=== PATIENT | female | born 1940 | race Caucasian/White ===

== ENCOUNTER 2017-05-09 13:30 | Outpatient (RCR) | payer MEDICARE ==
[2015-09-29 10:19] VITALS: Ht 160 cm; Wt 63.1 kg
[~2017-05-09] VITALS: Ht 160 cm; Wt 63.1 kg
[~2017-05-09 13:30] MED LIST: ALB18R INH; ALBU8.5H IH; AZIT-17 PO; BECL8.7A6 IH; CALC1TAB58 PO; CHOL10005 PO; CYA1000 PO; DEN60I SUBQ; DOXY-179 PO; FLUT1DIS28 IH; IBUP-56 PO; IPRA3AMP21 IH; LETPT GT; LEVA1.2513 NEB; MULT-885 PO; NICO1PAT45 TD; NICO1PAT88 TD; NO CURRENT MEDS; OXYGENHOME INH; PER PO; PRED-1 PO; PRED-416 PO; PRED-420 PO; PRED20TA PO; PRED20TA6 PO; PYRI200T10 PO; SIMV-49 PO; TIO18R INH; UMEC1DIS INH; ZOLE5INF IV
[2017-05-09 13:42] VITALS: BP 142/78
[2017-05-09 14:03] LABS: PLATELET COUNT, AUTOMATED 184 K/uL (150-450)
[2017-05-09 14:37] VITALS: BP 142/78
== END 2017-05-16 09:02 | disposition home or self-care (01) ==
LOC: SPU 13:30
PROVIDERS: ATTEND Internal Medicine Medical Oncology
DX: C50.919 Malignant neoplasm of unspecified site of unspecified female breast (principal); M81.0 Age-related osteoporosis without current pathological fracture
CPT/HCPCS: 36415; 85025; G0463; 82040; 82247; 82310; 82374; 82435; 82565; 82947; 84075; 84132; 84155; 84295; 84450; 84460; 84520; 99212

== ENCOUNTER 2017-09-11 12:19 | Emergency (ER) | payer MEDICARE ==
[2015-09-29 10:19] VITALS: Wt 61.2 kg
--- NOTE | 2017-09-11 12:31 | ER Report ---
History and Physical Time Seen By MD: 12:30 HPI/ROS CHIEF COMPLAINT: Shortness breath, increased oxygen demand HISTORY OF PRESENT ILLNESS: Patient is a 77-year-old female here with a history of COPD requiring more oxygen at baseline via supplemental oxygen than usual. At baseline she uses 3 L nasal cannula however noted that her oxygen levels dipped into the 80s prompting evaluation.. Patient was audibly wheezing at time of evaluation he reports only having used her nebulizer once within the last day. She is taking her inhalers as prescribed. Patient also reports increased sputum production which is clear. Patient denies fevers, chills, abdominal pain nausea vomiting. REVIEW OF SYSTEMS: Constitutional: No fever, no chills. Eyes: No discharge. ENT: No sore throat. Cardiovascular: No chest pain, no palpitations. Respiratory: + cough, + increased sputum production, + wheezing Gastrointestinal: No abdominal pain, no vomiting. Genitourinary: No hematuria. Musculoskeletal: No back pain. Skin: No rashes. Neurological: No headache. Allergies: Coded Allergies: No Known Drug Allergies (Unverified , 09/28/15) Home Meds Active Scripts Prednisone (PREDNISONE) 20 Mg Tablet, 40 MG PO QDAY for 5 Days, #10 TAB Prov:JASON HOLBROOK DO 09/11/17 Levofloxacin 750 Mg Tab (LEVAQUIN 750 MG TAB) 750 Mg Tablet, 750 MG PO DAILY for 4 Days, #4 TAB Prov:JASON HOLBROOK DO 09/11/17 Umeclidinium Brm/Vilanterol Tr (Anoro Ellipta 62.5-25 Mcg INH) 1 Each Disk.w.dev , 1 PUFF INH QDAY, #1 DISK 8 Refills Prov:AJAY OLIVAREZ MD 02/22/17 Albuterol Sulfate (VENTOLIN HFA) 18 Gm Inh, 2 PUFF INH Q4-6H Y for SHORTNESS OF BREATH, #1 INH 9 Refills Prov:AJAY OLIVAREZ MD 02/22/17 Simvastatin (SIMVASTATIN) 20 Mg Tablet, 10 MG PO HS, #90 TAB 3 Refills Prov:AJAY OLIVAREZ MD 02/22/17 Oxygen (OXYGEN) Inha, 3-4 L INH DIRECTED, #0 L Prov:AJAY OLIVAREZ MD 09/30/15 Reported Medications Ibuprofen (IBUPROFEN) 200 Mg Tablet, 2 TAB PO Q6H Y for PRN, TAB 09/28/15 Calcium Carb & Cit/Vitamin D3 (CALCIUM + VITAMIN D3 CAPLET) 1 Each Tablet.er, 1 EACH PO 09/05/12 Multivitamin (DAILY VITAMIN) 1 Each Tablet, 1 EACH PO 09/05/12 Discontinued Reported Medications Cyanocobalamin (Vitamin B-12) (VITAMIN B-12) Unknown Strength Tablet, 1000 MCG PO 09/02/15 Discontinued Scripts Prednisone (PREDNISONE) 20 Mg Tablet, 20 MG PO BID, #14 TAB Prov:AJAY OLIVAREZ MD 02/22/17 Azithromycin (Z-PACK) 250 Mg Tablet, 0 PO DIRECTED, #6 DOSE-PACK 5 days z pack Prov:AJAY OLIVAREZ MD 02/22/17 Fluticasone/Salmeterol (ADVAIR 250-50 DISKUS) 1 Each Disk.w.dev, 1 EACH IH BID, #1 DISK 9 Refills Prov:AJAY OLIVAREZ MD 02/22/17 Hx Smoking: Yes (1/2PPD) Smoking Status: Former Smoker Constitutional Vital Sign - Last 24 Hours 09/11/17 09/11/17 09/11/17 09/11/17 12:24 12:28 12:34 12:49 Temp 98.1 Pulse 130 110 97 Resp 30 8 22 B/P (MAP) 127/71 127/71 (89) Pulse Ox 80 93 94 O2 Delivery Nasal Cannula 09/11/17 09/11/17 09/11/17 09/11/17 12:50 12:50 12:50 12:55 Pulse 97 101 Resp 24 24 B/P (MAP) 117/79 (92) Pulse Ox 95 O2 Delivery Nasal Cannula O2 Flow Rate 4.0 09/11/17 09/11/17 09/11/17 09/11/17 12:55 13:04 13:19 13:20 Pulse 99 ??? B/P (MAP) ???/??? (1665) Pulse Ox 97 O2 Delivery Nasal Cannula O2 Flow Rate 4.0 09/11/17 09/11/17 09/11/17 09/11/17 13:25 13:34 13:40 13:49 Pulse 97 98 Resp 18 22 B/P (MAP) 110/58 (75) Pulse Ox 93 92 O2 Flow Rate 4.0 09/11/17 09/11/17 09/11/17 14:00 14:04 14:14 Temp 97.6 Pulse 95 Resp 10 B/P (MAP) 102/58 (73) Pulse Ox 94 Physical Exam General Appearance: The patient is alert, has no immediate need for airway protection and no signs of toxicity. Uncomfortable Eyes: Pupils equal and round no pallor or injection. ENT, Mouth: Mucous membranes are moist. Respiratory: + wheezing b/l, crackles Cardiovascular: Regular rate and rhythm. Gastrointestinal: Abdomen is soft and non tender, no masses, bowel sounds normal. Neurological: Skin: Warm and dry, no rashes. Musculoskeletal: Neck is supple non tender. Extremities are nontender, nonswollen and have full range of motion. DIFFERENTIAL DIAGNOSIS: After history and physical exam differential diagnosis was considered for shortness of breath including but not limited to pulmonary infectious process, COPD, asthma, pulmonary embolus and congestive heart failure. Medical Decision Making Data Points Result Diagram: 09/11/17 1300 09/11/17 1300 Laboratory Hematology Test 09/11/17 13:00 Red Blood Count 4.85 M/uL (4.17-5.56) Mean Corpuscular Volume 95.3 fL (80.0-96.0) Mean Corpuscular Hemoglobin 33.0 pg (26.0-33.0) Mean Corpuscular Hemoglobin Concent 34.7 g/dL (32.0-36.0) Red Cell Distribution Width 13.1 % (11.5-14.5) Mean Platelet Volume 7.5 fL (7.2-11.1) Neutrophils (%) (Auto) 63.8 % (39.4-72.5) Lymphocytes (%) (Auto) 25.5 % (17.6-49.6) Monocytes (%) (Auto) 6.2 % (4.1-12.4) Eosinophils (%) (Auto) 3.0 % (0.4-6.7) Basophils (%) (Auto) 1.5 % (0.3-1.4) Nucleated RBC Relative Count (auto) 0.1 /100WBC Neutrophils # (Auto) 4.1 K/uL (2.0-7.4) Lymphocytes # (Auto) 1.6 K/uL (1.3-3.6) Monocytes # (Auto) 0.4 K/uL (0.3-1.0) Eosinophils # (Auto) 0.2 K/uL (0.0-0.5) Basophils # (Auto) 0.1 K/uL (0.0-0.1) Nucleated RBC Absolute Count (auto) 0.00 K/uL Prothrombin Time 12.5 seconds (12.0-14.4) Prothromb Time International Ratio 0.93 Activated Partial Thromboplast Time 24 seconds (23-35) Sodium Level 142 mmol/L (137-145) Potassium Level 3.9 mmol/L (3.5-5.0) Chloride Level 100 mmol/L (98-107) Carbon Dioxide Level 31 mmol/L (22-31) Blood Urea Nitrogen 12 mg/dl (7-18) Creatinine 0.90 mg/dl (0.52-1.04) Glomerular Filtration Rate Calc > 60.0 Random Glucose 114 mg/dl (75-110) Calcium Level 9.1 mg/dl (8.4-10.2) Total Bilirubin 0.6 mg/dl (0.2-1.3) Aspartate Amino Transf (AST/SGOT) 27 U/L (0-35) Alanine Aminotransferase (ALT/SGPT) 21 U/L (0-56) Alkaline Phosphatase 73 U/L (0-126) Troponin I < 0.012 ng/ml B-Type Natriuretic Peptide 29 pg/ml (0-100) Total Protein 7.4 g/dl (6.3-8.2) Albumin 3.9 g/dl (3.5-5.0) Chemistry Test 09/11/17 13:00 White Blood Count 6.4 k/uL (4.5-11.0) Red Blood Count 4.85 M/uL (4.17-5.56) Hemoglobin 16.0 g/dL (12.0-16.0) Hematocrit 46.3 % (34.0-47.0) Mean Corpuscular Volume 95.3 fL (80.0-96.0) Mean Corpuscular Hemoglobin 33.0 pg (26.0-33.0) Mean Corpuscular Hemoglobin Concent 34.7 g/dL (32.0-36.0) Red Cell Distribution Width 13.1 % (11.5-14.5) Platelet Count 152 K/uL (150-450) Mean Platelet Volume 7.5 fL (7.2-11.1) Neutrophils (%) (Auto) 63.8 % (39.4-72.5) Lymphocytes (%) (Auto) 25.5 % (17.6-49.6) Monocytes (%) (Auto) 6.2 % (4.1-12.4) Eosinophils (%) (Auto) 3.0 % (0.4-6.7) Basophils (%) (Auto) 1.5 % (0.3-1.4) Nucleated RBC Relative Count (auto) 0.1 /100WBC Neutrophils # (Auto) 4.1 K/uL (2.0-7.4) Lymphocytes # (Auto) 1.6 K/uL (1.3-3.6) Monocytes # (Auto) 0.4 K/uL (0.3-1.0) Eosinophils # (Auto) 0.2 K/uL (0.0-0.5) Basophils # (Auto) 0.1 K/uL (0.0-0.1) Nucleated RBC Absolute Count (auto) 0.00 K/uL Prothrombin Time 12.5 seconds (12.0-14.4) Prothromb Time International Ratio 0.93 Activated Partial Thromboplast Time 24 seconds (23-35) Glomerular Filtration Rate Calc > 60.0 Calcium Level 9.1 mg/dl (8.4-10.2) Total Bilirubin 0.6 mg/dl (0.2-1.3) Aspartate Amino Transf (AST/SGOT) 27 U/L (0-35) Alanine Aminotransferase (ALT/SGPT) 21 U/L (0-56) Alkaline Phosphatase 73 U/L (0-126) Troponin I < 0.012 ng/ml B-Type Natriuretic Peptide 29 pg/ml (0-100) Total Protein 7.4 g/dl (6.3-8.2) Albumin 3.9 g/dl (3.5-5.0) Coagulation Test 09/11/17 13:00 Prothrombin Time 12.5 seconds Prothromb Time International Ratio 0.93 Activated Partial Thromboplast Time 24 seconds EKG/Imaging EKG Interpretation Test Reason : SOB Blood Pressure : / mmHG Vent. Rate : 108 BPM Atrial Rate : 108 BPM P-R Int : 162 ms QRS Dur : 078 ms QT Int : 340 ms P-R-T Axes : 081 072 077 degrees QTc Int : 455 ms Sinus tachycardia Otherwise normal ECG When compared with ECG of 28-SEP-2015 12:15, No significant change was found Imaging Exam type: CHEST PA AND LAT History: RESP DISTRESS Comparison: October 05, 2016. Findings: There is a small amount linear scarring in the left lung base. Hyperinflation lung garcia again noted. No evidence of overt pulmonary edema, focal infiltrates or pleural effusions. No evidence of a pneumothorax or pneumomediastinum. Cardiac silhouette is normal in size. IMPRESSION: 1. Hyperinflation of the lung garcia Left basilar scarring ED Course/Re-evaluation ED Course Patient is a 77-year-old female with a history of COPD on supplemental oxygen at baseline 3 L nasal cannula. Patient reports several days of increased work of breathing, increased oxygen demand. She was given nebulizer treatments, steroids with significant relief of symptoms. Chest x-ray showed no acute findings. Patient was given scripts for prednisone, Levaquin for COPD exacerbation. Patient was advised to follow-up with family doctor and to continue nebulizer treatments and supplemental oxygen as prescribed. Patient was stable at time of discharge Decision to Disposition Date: Sep 11, 2017 Decision to Disposition Time: 14:30 Depart Departure Latest Vital Signs Vital Signs Date Time Temp Pulse Resp B/P (MAP) Pulse Ox O2 Delivery O2 Flow Rate FiO2 09/11/17 14:14 97.6 09/11/17 14:04 95 10 94 09/11/17 14:00 102/58 (73) 09/11/17 13:25 4.0 09/11/17 12:55 Nasal Cannula Impression: Primary Impression: COPD exacerbation Condition: Improved Disposition: HOME OR SELF-CARE Referrals: AJAY OLIVAREZ MD (PCP) New Scripts Prednisone (PREDNISONE) 20 Mg Tablet 40 MG PO QDAY for 5 Days, #10 TAB Prov: JASON HOLBROOK DO 09/11/17 Levofloxacin 750 Mg Tab (LEVAQUIN 750 MG TAB) 750 Mg Tablet 750 MG PO DAILY for 4 Days, #4 TAB Prov: JASON HOLBROOK DO 09/11/17 Patient Instructions: COPD (Chronic Obstructive Pulmonary Disease) (ED), Levofloxacin (By mouth), Prednisone (By mouth) Additional Instructions: Please take one tablet of Levaquin daily for 4 days. Please take 2 tabs of prednisone daily for 5 days. Please take your nebulizer treatments every 4-6 hours as needed for shortness of breath. Follow-up with your family doctor next week. Please return promptly if you develop worsening shortness breath, increased oxygen demand, fevers, worsening cough. JASON HOLBROOK DO Sep 11, 2017 12:30
[2017-09-11] MEDS ORDERED: methylPREDNIS SUCC 125 MG/2ML IVP ONE (12:45)
[2017-09-11] MEDS ORDERED: ALBUTEROL/IPRATROPIUM 3 ML NEB NEB SCH (12:45)
--- NOTE | 2017-09-11 12:51 | EKG ---
FACILITY: [facility] PATIENT NAME: ESTRADA CARMONA : [id number] MR: [id number] V: [id number] EXAM DATE: ORDERING PHYSICIAN: JASON HOLBROOK TECHNOLOGIST: AKSHAT Desir Reason : SOB Blood Pressure : / mmHG Vent. Rate : 108 BPM Atrial Rate : 108 BPM P-R Int : 162 ms QRS Dur : 078 ms QT Int : 340 ms P-R-T Axes : 081 072 077 degrees QTc Int : 455 ms Sinus tachycardia Decreased R wave progression anterior leads Nonspecific ST findings inferior leads Small Q waves inferolateral leads of questionable significance Confirmed by JENNIE RUSSO ([id number]) on 09/11/2017 4:11:42 PM Referred By: Confirmed By:JENNIE RUSSO
[2017-09-11 13:12] LABS: PLATELET COUNT, AUTOMATED 152 K/uL (150-450)
[2017-09-11 13:20] LABS: INR 0.93
--- NOTE | 2017-09-11 13:56 | RADIOLOGY IMAGING REPORT ---
FACILITY: [facility] PATIENT NAME: Anali Magaña : 1940 MR: [id number] V: [id number] EXAM DATE: ORDERING PHYSICIAN: JASON HOLBROOK TECHNOLOGIST: Location: [facility] [place] Patient: Anali Magaña : 1940 Visit/Account:[id number] Date of Sevice: 09/11/2017 Exam type: CHEST PA AND LAT History: RESP DISTRESS Comparison: October 05, 2016. Findings: There is a small amount linear scarring in the left lung base. Hyperinflation lung garcia again note d. No evidence of overt pulmonary edema, focal infiltrates or pleural effusions. No evidence of a p neumothorax or pneumomediastinum. Cardiac silhouette is normal in size. IMPRESSION: 1. Hyperinflation of the lung garcia Left basilar scarring Report Dictated By: Nancy Tobin MD at 09/11/2017 1:50 PM Report E-Signed By: Nancy Tobin MD at 09/11/2017 1:52 PM WSN:[email or web address]
[2017-09-11 14:00] VITALS: BP 102/58
[2017-09-11] MEDS ORDERED: PRED20TA6 PO (14:10)
[2017-09-11] MEDS ORDERED: LEVO750T44 PO (14:10)
[2017-09-11] MEDS ORDERED: LEVOFLOXACIN 750 MG TAB PO ONE (14:10)
--- NOTE | 2017-09-14 14:29 | Transitional Care Management ---
Assessment Visit Type: Telephone Visit (09/14 Anali) Respiratory: WNL Except Respiratory Comment: 09/14 Using O2/3L gets SOB w activity but getting better. Scheduled Follow-Up with [facility]: Yes (09/14 Has an appointment w PCP on Sunday 09/17) TCM Discharge Criteria Transitional Care Comment: 10/10 Had not made appt with PCP encouraged her to do so today. "It si very important that you do this FU" Has not been smoking since DC-using nicotine patches QD and no one else in house smokes so that has been helpful Discussed SX&SX of COPD and when to get medical help. 09/14/17 Getting stronger still using O2/3L has an appt w PCP on Sunday 09/17- using inhalers and meds as directed by Er staff on09/12. LINDA PANIAGUA Sep 14, 2017 14:29
== END 2017-09-11 14:30 | disposition home or self-care (01) ==
LOC: ER 12:42
DX: J44.1 Chronic obstructive pulmonary disease with (acute) exacerbation (principal)
CPT/HCPCS: 71046; 83880; 84484; 85025; 85610; 85730; 93005; 94640; 96374; 99284; A9270; J2930; J7620; 82040; 82247; 82310; 82374; 82435; 82565; 82947; 84075; 84132; 84155; 84295; 84450; 84460; 84520

== ENCOUNTER 2018-02-21 15:40 | Emergency (ER) | payer MEDICARE ==
[2015-09-29 10:19] VITALS: Wt 61.2 kg
[~2018-02-21 15:40] MED LIST changes: +IPRA3AMP10 IH; -IPRA3AMP21 IH; +LEVO750T44 PO
--- NOTE | 2018-02-21 15:45 | ER Report ---
History and Physical Time Seen By : 15:46 HPI/ROS 78-year-old female with a history of COPD presents to the emergency department with a mild cough and congestion over the past 2-3 days and an exacerbation of her COPD. She is on home oxygen, and has increased her oxygen requirement. Her dyspnea is worse with exertion. She denies chest pain. No fever chills. She no longer smokes cigarettes. She has no other complaints. Allergies: Coded Allergies: No Known Drug Allergies (Unverified , 09/28/15) Home Meds Active Scripts Azithromycin (ZITHROMAX) 250 Mg Tablet, 1 TAB PO QDAY for 4 Days, #4 TAB Prov:GEE CARDENAS MD 02/21/18 Prednisone (PREDNISONE) 20 Mg Tablet, 40 MG PO QDAY for 5 Days, #10 TAB Prov:GEE CARDENAS MD 02/21/18 Umeclidinium Brm/Vilanterol Tr (Anoro Ellipta 62.5-25 Mcg INH) 1 Each Disk.w.dev, 1 PUFF INH QDAY, #1 DISK 5 Refills Prov:AJAY OLIVAREZ MD 01/07/18 Albuterol Sulfate (VENTOLIN HFA) 18 Gm Inh, 2 PUFF INH Q4-6H PRN for SHORTNESS OF BREATH, #1 INH 9 Refills Prov:AJAY OLIVAREZ MD 02/22/17 Simvastatin (SIMVASTATIN) 20 Mg Tablet, 10 MG PO HS, #90 TAB 3 Refills Prov:AJAY OLIVAREZ MD 02/22/17 Oxygen (OXYGEN) Inha, 3-4 L INH DIRECTED, #0 L Prov:AJAY OLIVAREZ MD 09/30/15 Reported Medications Ibuprofen (IBUPROFEN) 200 Mg Tablet, 2 TAB PO Q6H PRN for PRN, TAB 09/28/15 Calcium Carb & Cit/Vitamin D3 (CALCIUM + VITAMIN D3 CAPLET) 1 Each Tablet.er, 1 EACH PO 09/05/12 Multivitamin (DAILY VITAMIN) 1 Each Tablet, 1 EACH PO 09/05/12 Reviewed Nurses Notes: Yes Old Medical Records Reviewed: Yes Hx Smoking: Yes (1/2PPD) Smoking Status: Former Smoker Exposure to Second Hand Smoke?: No Hx Substance Use Disorder: No Hx Alcohol Use: No Constitutional Vital Sign - Last 24 Hours 11/02/21/18 02/21/18 02/21/18 15:48 15:48 15:55 16:00 Temp 97.5 Pulse 141 128 Resp 30 B/P (MAP) 150/93 150/93 (112) 130/84 (99) Pulse Ox 87 90 O2 Delivery Nasal Cannula 02/21/18 02/21/18 02/21/18 02/21/18 16:10 16:13 16:19 16:19 Pulse 112 116 Resp 20 Pulse Ox 91 90 O2 Delivery Nasal Cannula O2 Flow Rate 4.0 3.5 02/21/18 02/21/18 02/21/18 02/21/18 16:24 16:25 16:30 16:40 Pulse 113 116 110 Resp 20 B/P (MAP) 118/80 (93) Pulse Ox 94 91 02/21/18 02/21/18 02/21/18 16:55 17:00 17:10 Pulse 109 104 B/P (MAP) 128/80 (96) Pulse Ox 90 92 Physical Exam General Appearance: The patient is alert, has no immediate need for airway protection and no current signs of toxicity. Eyes: Pupils equal and round no injection. Respiratory: Chest is non tender, she has diffuse scant wheezing and not moving air well Cardiac: regular rate and rhythm Gastrointestinal: Abdomen is soft and non tender, no masses, bowel sounds normal. Extremities have full range of motion and are non tender. Skin: No rashes or lesions. DIFFERENTIAL DIAGNOSIS: After history and physical exam differential diagnosis w as considered for shortness of breath including but not limited to pulmonary infectious process, COPD, asthma, pulmonary embolus and congestive heart failure. Medical Decision Making Data Points Result Diagram: 02/21/18 1602 02/21/18 1602 Laboratory Hematology Test 02/21/18 16:02 Red Blood Count 4.92 M/uL (4.17-5.56) Mean Corpuscular Volume 95.2 fL (80.0-96.0) Mean Corpuscular Hemoglobin 33.7 pg (26.0-33.0) Mean Corpuscular Hemoglobin Concent 35.3 g/dL (32.0-36.0) Red Cell Distribution Width 12.9 % (11.5-14.5) Mean Platelet Volume 7.5 fL (7.2-11.1) Neutrophils (%) (Auto) 53.1 % (39.4-72.5) Lymphocytes (%) (Auto) 36.9 % (17.6-49.6) Monocytes (%) (Auto) 5.7 % (4.1-12.4) Eosinophils (%) (Auto) 3.4 % (0.4-6.7) Basophils (%) (Auto) 0.9 % (0.3-1.4) Nucleated RBC Relative Count (auto) 0.0 /100WBC Neutrophils # (Auto) 4.4 K/uL (2.0-7.4) Lymphocytes # (Auto) 3.1 K/uL (1.3-3.6) Monocytes # (Auto) 0.5 K/uL (0.3-1.0) Eosinophils # (Auto) 0.3 K/uL (0.0-0.5) Basophils # (Auto) 0.1 K/uL (0.0-0.1) Nucleated RBC Absolute Count (auto) 0.00 K/uL Sodium Level 140 mmol/L (137-145) Potassium Level 3.7 mmol/L (3.5-5.0) Chloride Level 106 mmol/L (98-107) Carbon Dioxide Level 22 mmol/L (22-31) Blood Urea Nitrogen 12 mg/dl (7-18) Creatinine 1.00 mg/dl (0.52-1.04) Glomerular Filtration Rate Calc 53.9 Random Glucose 104 mg/dl (75-110) Calcium Level 9.2 mg/dl (8.4-10.2) Total Bilirubin 0.7 mg/dl (0.2-1.3) Aspartate Amino Transf (AST/SGOT) 39 U/L (0-35) Alanine Aminotransferase (ALT/SGPT) 26 U/L (0-56) Alkaline Phosphatase 81 U/L (0-126) Troponin I < 0.012 ng/ml Total Protein 8.3 g/dl (6.3-8.2) Albumin 4.4 g/dl (3.5-5.0) Chemistry Test 02/21/18 16:02 White Blood Count 8.3 k/uL (4.5-11.0) Red Blood Count 4.92 M/uL (4.17-5.56) Hemoglobin 16.6 g/dL (12.0-16.0) Hematocrit 46.9 % (34.0-47.0) Mean Corpuscular Volume 95.2 fL (80.0-96.0) Mean Corpuscular Hemoglobin 33.7 pg (26.0-33.0) Mean Corpuscular Hemoglobin Concent 35.3 g/dL (32.0-36.0) Red Cell Distribution Width 12.9 % (11.5-14.5) Platelet Count 178 K/uL (150-450) Mean Platelet Volume 7.5 fL (7.2-11.1) Neutrophils (%) (Auto) 53.1 % (39.4-72.5) Lymphocytes (%) (Auto) 36.9 % (17.6-49.6) Monocytes (%) (Auto) 5.7 % (4.1-12.4) Eosinophils (%) (Auto) 3.4 % (0.4-6.7) Basophils (%) (Auto) 0.9 % (0.3-1.4) Nucleated RBC Relative Count (auto) 0.0 /100WBC Neutrophils # (Auto) 4.4 K/uL (2.0-7.4) Lymphocytes # (Auto) 3.1 K/uL (1.3-3.6) Monocytes # (Auto) 0.5 K/uL (0.3-1.0) Eosinophils # (Auto) 0.3 K/uL (0.0-0.5) Basophils # (Auto) 0.1 K/uL (0.0-0.1) Nucleated RBC Absolute Count (auto) 0.00 K/uL Glomerular Filtration Rate Calc 53.9 Calcium Level 9.2 mg/dl (8.4-10.2) Total Bilirubin 0.7 mg/dl (0.2-1.3) Aspartate Amino Transf (AST/SGOT) 39 U/L (0-35) Alanine Aminotransferase (ALT/SGPT) 26 U/L (0-56) Alkaline Phosphatase 81 U/L (0-126) Troponin I < 0.012 ng/ml Total Protein 8.3 g/dl (6.3-8.2) Albumin 4.4 g/dl (3.5-5.0) EKG/Imaging Imaging X-ray: CXR was obtained. I viewed the images myself on the PACS system. My interpretation of the images is: no new changes. The radiologist interpretation had no clinically significant variation from this interpretation. ED Course/Re-evaluation ED Course Complicated COPD exacerbation. Given nebulizer treatments and steroids in the e mergency department. Chest x-ray is at baseline. Air movement much improved after nebulizer treatment. The patient feels well and back to her baseline. Given her cough and congestion symptoms, I will treat her with a Z-Kel and prednisone for 5 days. She can follow-up with her primary care physician. Decision to Disposition Date: Feb 21, 2018 Decision to Disposition Time: 18:00 Depart Departure Latest Vital Signs Vital Signs Date Time Temp Pulse Resp B/P (MAP) Pulse Ox O2 Delivery O2 Flow Rate FiO2 02/21/18 17:10 104 92 02/21/18 17:00 128/80 (96) 02/21/18 16:24 20 02/21/18 16:19 Nasal Cannula 3.5 02/21/18 15:48 97.5 Impression: Primary Impression: COPD exacerbation Condition: Improved Disposition: HOME OR SELF-CARE Referrals: AJAY OLIVAREZ MD (PCP) New Scripts Azithromycin (ZITHROMAX) 250 Mg Tablet 1 TAB PO QDAY for 4 Days, #4 TAB Prov: GEE CARDENAS MD 02/21/18 Prednisone (PREDNISONE) 20 Mg Tablet 40 MG PO QDAY for 5 Days, #10 TAB Prov: GEE CARDENAS MD 02/21/18 Patient Instructions: COPD (Chronic Obstructive Pulmonary Disease) (ED) GEE CARDENAS MD Feb 21, 2018 15:45
[2018-02-21] MEDS ORDERED: methylPREDNIS SUCC 125 MG/2ML IVP ONE (16:15)
[2018-02-21] MEDS ORDERED: ALBUTEROL/IPRATROPIUM 3 ML NEB NEB ONE (16:15)
[2018-02-21 16:36] LABS: PLATELET COUNT, AUTOMATED 178 K/uL (150-450)
[2018-02-21 17:30] VITALS: BP 134/75
[2018-02-21] MEDS ORDERED: AZITHROMYCIN 250 MG TAB PO ONE (17:40)
--- NOTE | 2018-02-21 17:43 | RADIOLOGY IMAGING REPORT ---
FACILITY: [facility] PATIENT NAME: Anali Magaña : 1940 MR: [id number] V: [id number] EXAM DATE: ORDERING PHYSICIAN: GEE CARDENAS TECHNOLOGIST: [facility] Patient: Anali Magaña : 1940 Visit/Account:[id number] Date of Sevice: 02/21/2018 Exam type: CHEST SINGLE AP History: Difficulty breathing Comparison: September 11, 2017 Findings: Again noted is a small linear scar in the left lung base. There is no evidence of focal infiltrates, pleural effusions or pulmonary edema. No evidence of a pneumothorax or pneumomediastinum. The card iac silhouette is normal in size.. IMPRESSION: 1. Small amount of linear scarring in the left lung base unchanged when compared to the prior study. No evidence of acute pulmonary consolidation Report Dictated By: Nancy Tobin MD at 02/21/2018 5:35 PM Report E-Signed By: Nancy Tobin MD at 02/21/2018 5:37 PM WSN:[email or web address]
[2018-02-21] MEDS ORDERED: PRED20TA6 PO (17:44)
[2018-02-21] MEDS ORDERED: AZIT-1 PO (17:44)
--- NOTE | 2018-02-22 10:59 | EKG ---
FACILITY: [facility] PATIENT NAME: ESTRADA CARMONA : [id number] MR: [id number] V: [id number] EXAM DATE: ORDERING PHYSICIAN: GEE CARDENAS TECHNOLOGIST: Test Reason : Blood Pressure : / mmHG Vent. Rate : 122 BPM Atrial Rate : 122 BPM P-R Int : 162 ms QRS Dur : 078 ms QT Int : 304 ms P-R-T Axes : 082 083 073 degrees QTc Int : 433 ms Sinus tachycardia Otherwise normal ECG When compared with ECG of 11-SEP-2017 12:34, No significant change was found Confirmed by ABI KELLER ([id number]) on 02/22/2018 8:53:14 PM Referred By: Confirmed By:ABI KELLER
== END 2018-02-21 18:10 | disposition home or self-care (01) ==
LOC: ER 15:49
DX: J44.1 Chronic obstructive pulmonary disease with (acute) exacerbation (principal)
CPT/HCPCS: 84484; 85025; 93005; 94640; 96374; 99284; J2930; J7620; Q0144; 71045; 82040; 82247; 82310; 82374; 82435; 82565; 82947; 84075; 84132; 84155; 84295; 84450; 84460; 84520

== ENCOUNTER 2018-04-14 12:41 | Emergency (ER) | payer MEDICARE ==
[2015-09-29 10:19] VITALS: Wt 61.2 kg
[~2018-04-14 12:41] MED LIST changes: +AZIT-1 PO; +SIMV10TA98 PO
--- NOTE | 2018-04-14 12:50 | ER Report ---
History and Physical Time Seen By MD: 12:50 HPI/ROS CHIEF COMPLAINT: Shortness of breath HISTORY OF PRESENT ILLNESS: 78-year-old female patient presents to emergency room with complaints shortness of breath. Patient states that she believes she is having a COPD exacerbation. Patient states she feels like she may have a little bit of a cold. She states she's been having a hard time breathing for the last 2 days. She denies having any nausea, vomiting or diarrhea. Patient states she is eating and drinking without any difficulties. Patient states that when she gets like this typically she comes in the emergency room and gets a shot and starts to feel better. Patient denies having any chest pain. She states that she is having worsening shortness of breath with activity. REVIEW OF SYSTEMS: Respiratory: As noted above Cardiovascular: No chest pain, no palpitations. Gastrointestinal: No vomiting, no abdominal pain. Musculoskeletal: No back pain. Allergies: Coded Allergies: No Known Drug Allergies (Unverified , 09/28/15) Home Meds Active Scripts Prednisone (PREDNISONE) 20 Mg Tablet, 40 MG PO DAILY, #8 TAB Prov:MIRACLE MAHER 04/14/18 Simvastatin (SIMVASTATIN) 10 Mg Tablet, 10 MG PO HS, #30 TAB Prov:AJAY OLIVAREZ MD 04/12/18 Umeclidinium Brm/Vilanterol Tr (Anoro Ellipta 62.5-25 Mcg INH) 1 Each Disk.w.dev, 1 PUFF INH QDAY, #1 DISK 5 Refills Prov:AJAY OLIVAREZ MD 01/07/18 Albuterol Sulfate (VENTOLIN HFA) 18 Gm Inh, 2 PUFF INH Q4-6H PRN for SHORTNESS OF BREATH, #1 INH 9 Refills Prov:AJAY OLIVAREZ MD 02/22/17 Oxygen (OXYGEN) Inha, 3-4 L INH DIRECTED, #0 L Prov:AJAY OLIVAREZ MD 09/30/15 Reported Medications Ibuprofen (IBUPROFEN) 200 Mg Tablet, 2 TAB PO Q6H PRN for PRN, TAB 09/28/15 Calcium Carb & Cit/Vitamin D3 (CALCIUM + VITAMIN D3 CAPLET) 1 Each Tablet.er, 1 EACH PO 09/05/12 Multivitamin (DAILY VITAMIN) 1 Each Tablet, 1 EACH PO 09/05/12 Discontinued Scripts Azithromycin (ZITHROMAX) 250 Mg Tablet, 1 TAB PO QDAY for 4 Days, #4 TAB Prov:GEE CARDENAS MD 02/21/18 Prednisone (PREDNISONE) 20 Mg Tablet, 40 MG PO QDAY for 5 Days, #10 TAB Prov:GEE CARDENAS MD 02/21/18 Simvastatin (SIMVASTATIN) 20 Mg Tablet, 10 MG PO HS, #30 TAB 0 Refills Prov:AJAY OLIVAREZ MD 04/11/18 Past Medical/Surgical History Patient has a past medical history of hyperlipidemia, COPD, arthritis, osteoporosis, tinnitus, breast cancer. Patient has a surgical history of cataract surgery. Patient has a family medical history of cancer, diabetes. Reviewed Nurses Notes: Yes Hx Smoking: Yes (1/2PPD) Smoking Status: Former Smoker Exposure to Second Hand Smoke?: No Hx Substance Use Disorder: No Hx Alcohol Use: No Constitutional Vital Sign - Last 24 Hours 04/14/18 04/14/18 04/14/18 04/14/18 12:49 12:50 12:56 13:00 Temp 97.8 Pulse 118 106 100 Resp 25 19 18 B/P (MAP) 124/87 (99) 124/87 Pulse Ox 85 90 O2 Delivery Nasal Cannula 04/14/18 04/14/18 04/14/18 04/14/18 13:00 13:06 13:06 13:11 Pulse 98 104 Resp 18 23 B/P (MAP) 125/70 (88) Pulse Ox 91 91 93 O2 Delivery Oxy Mask Oxy Mask O2 Flow Rate 5.0 4.5 04/14/18 04/14/18 04/14/18 04/14/18 13:18 13:26 13:41 13:53 Pulse ??? 95 92 Resp 10 18 Pulse Ox 92 O2 Flow Rate 6.0 04/14/18 04/14/18 04/14/18 04/14/18 13:53 13:56 13:59 13:59 Pulse 89 89 Resp 21 16 Pulse Ox 92 95 92 O2 Delivery Nasal Cannula Nasal Cannula O2 Flow Rate 3.5 3.0 Physical Exam General Appearance: The patient is alert, has no immediate need for airway protection and no current signs of toxicity. Respiratory: Chest is non tender, lungs are very diminished to auscultation. Cardiac: regular rate and rhythm Gastrointestinal: Abdomen is soft and non tender, no masses, bowel sounds normal. Musculoskeletal: Neck: Neck is supple and non tender. Extremities have full range of motion and are non tender. Skin: No rashes or lesions. DIFFERENTIAL DIAGNOSIS: After history and physical exam differential diagnosis was considered for shortness of breath including but not limited to pulmonary infectious process, COPD, asthma, pulmonary embolus and congestive heart failure. Medical Decision Making Data Points Result Diagram: 04/14/18 1309 04/14/18 1309 Laboratory Hematology Test 04/14/18 13:09 04/14/18 14:18 Red Blood Count 4.92 M/uL (4.17-5.56) Mean Corpuscular Volume 98.7 fL (80.0-96.0) Mean Corpuscular Hemoglobin 33.0 pg (26.0-33.0) Mean Corpuscular Hemoglobin Concent 33.4 g/dL (32.0-36.0) Red Cell Distribution Width 13.2 % (11.5-14.5) Mean Platelet Volume 7.0 fL (7.2-11.1) Neutrophils (%) (Auto) 49.3 % (39.4-72.5) Lymphocytes (%) (Auto) 40.5 % (17.6-49.6) Monocytes (%) (Auto) 6.8 % (4.1-12.4) Eosinophils (%) (Auto) 2.8 % (0.4-6.7) Basophils (%) (Auto) 0.6 % (0.3-1.4) Nucleated RBC Relative Count (auto) 0.1 /100WBC Neutrophils # (Auto) 3.4 K/uL (2.0-7.4) Lymphocytes # (Auto) 2.8 K/uL (1.3-3.6) Monocytes # (Auto) 0.5 K/uL (0.3-1.0) Eosinophils # (Auto) 0.2 K/uL (0.0-0.5) Basophils # (Auto) 0.0 K/uL (0.0-0.1) Nucleated RBC Absolute Count (auto) 0.01 K/uL Sodium Level 139 mmol/L (137-145) Potassium Level 3.9 mmol/L (3.5-5.0) Chloride Level 102 mmol/L (98-107) Carbon Dioxide Level 26 mmol/L (22-31) Blood Urea Nitrogen 11 mg/dl (7-18) Creatinine 0.90 mg/dl (0.52-1.04) Glomerular Filtration Rate Calc > 60.0 Random Glucose 154 mg/dl (75-110) Calcium Level 9.4 mg/dl (8.4-10.2) Total Bilirubin 0.6 mg/dl (0.2-1.3) Aspartate Amino Transf (AST/SGOT) 28 U/L (0-35) Alanine Aminotransferase (ALT/SGPT) 20 U/L (0-56) Alkaline Phosphatase 63 U/L (0-126) Troponin I < 0.012 ng/ml B-Type Natriuretic Peptide 18 pg/ml (0-100) Total Protein 7.6 g/dl (6.3-8.2) Albumin 4.3 g/dl (3.5-5.0) Urine Color Straw Urine Clarity Clear Urine pH 6.0 pH (4.8-9.5) Urine Specific [place] 1.004 Urine Protein Negative mg/dL (NEGATIVE) Urine Glucose (UA) Negative mg/dL (NEGATIVE) Urine Ketones Negative mg/dL (NEGATIVE) Urine Blood Negative (NEGATIVE) Urine Nitrite Negative (NEGATIVE) Urine Bilirubin Negative (NEGATIVE) Urine Urobilinogen Negative mg/dL (0.2-1.9) Urine Leukocyte Esterase Small (NEGATIVE) Urine RBC None /HPF (0-2/HPF) Urine WBC 7 /HPF (0-5/HPF) Urine Squamous Epithelial Cells Many /LPF (</=FEW) Urine Transitional Epithelial Cells Few /LPF (NONE-FEW) Urine Bacteria Few /HPF (NONE-FEW) Urine Mucus None /HPF (NONE-FEW) Chemistry Test 04/14/18 13:09 04/14/18 14:18 White Blood Count 6.9 k/uL (4.5-11.0) Red Blood Count 4.92 M/uL (4.17-5.56) Hemoglobin 16.2 g/dL (12.0-16.0) Hematocrit 48.5 % (34.0-47.0) Mean Corpuscular Volume 98.7 fL (80.0-96.0) Mean Corpuscular Hemoglobin 33.0 pg (26.0-33.0) Mean Corpuscular Hemoglobin Concent 33.4 g/dL (32.0-36.0) Red Cell Distribution Width 13.2 % (11.5-14.5) Platelet Count 158 K/uL (150-450) Mean Platelet Volume 7.0 fL (7.2-11.1) Neutrophils (%) (Auto) 49.3 % (39.4-72.5) Lymphocytes (%) (Auto) 40.5 % (17.6-49.6) Monocytes (%) (Auto) 6.8 % (4.1-12.4) Eosinophils (%) (Auto) 2.8 % (0.4-6.7) Basophils (%) (Auto) 0.6 % (0.3-1.4) Nucleated RBC Relative Count (auto) 0.1 /100WBC Neutrophils # (Auto) 3.4 K/uL (2.0-7.4) Lymphocytes # (Auto) 2.8 K/uL (1.3-3.6) Monocytes # (Auto) 0.5 K/uL (0.3-1.0) Eosinophils # (Auto) 0.2 K/uL (0.0-0.5) Basophils # (Auto) 0.0 K/uL (0.0-0.1) Nucleated RBC Absolute Count (auto) 0.01 K/uL Glomerular Filtration Rate Calc > 60.0 Calcium Level 9.4 mg/dl (8.4-10.2) Total Bilirubin 0.6 mg/dl (0.2-1.3) Aspartate Amino Transf (AST/SGOT) 28 U/L (0-35) Alanine Aminotransferase (ALT/SGPT) 20 U/L (0-56) Alkaline Phosphatase 63 U/L (0-126) Troponin I < 0.012 ng/ml B-Type Natriuretic Peptide 18 pg/ml (0-100) Total Protein 7.6 g/dl (6.3-8.2) Albumin 4.3 g/dl (3.5-5.0) Urine Color Straw Urine Clarity Clear Urine pH 6.0 pH (4.8-9.5) Urine Specific [place] 1.004 Urine Protein Negative mg/dL (NEGATIVE) Urine Glucose (UA) Negative mg/dL (NEGATIVE) Urine Ketones Negative mg/dL (NEGATIVE) Urine Blood Negative (NEGATIVE) Urine Nitrite Negative (NEGATIVE) Urine Bilirubin Negative (NEGATIVE) Urine Urobilinogen Negative mg/dL (0.2-1.9) Urine Leukocyte Esterase Small (NEGATIVE) Urine RBC None /HPF (0-2/HPF) Urine WBC 7 /HPF (0-5/HPF) Urine Squamous Epithelial Cells Many /LPF (</=FEW) Urine Transitional Epithelial Cells Few /LPF (NONE-FEW) Urine Bacteria Few /HPF (NONE-FEW) Urine Mucus None /HPF (NONE-FEW) Urinalysis Test 04/14/18 14:18 Urine Color Straw Urine Clarity Clear Urine pH 6.0 pH (4.8-9.5) Urine Specific [place] 1.004 Urine Protein Negative mg/dL (NEGATIVE) Urine Glucose (UA) Negative mg/dL (NEGATIVE) Urine Ketones Negative mg/dL (NEGATIVE) Urine Blood Negative (NEGATIVE) Urine Nitrite Negative (NEGATIVE) Urine Bilirubin Negative (NEGATIVE) Urine Urobilinogen Negative mg/dL (0.2-1.9) Urine Leukocyte Esterase Small (NEGATIVE) Urine RBC None /HPF (0-2/HPF) Urine WBC 7 /HPF (0-5/HPF) Urine Squamous Epithelial Cells Many /LPF (</=FEW) Urine Transitional Epithelial Cells Few /LPF (NONE-FEW) Urine Bacteria Few /HPF (NONE-FEW) Urine Mucus None /HPF (NONE-FEW) EKG/Imaging EKG Interpretation 12 lead EKG: Rhythm: Sinus tachycardia with a ventricular rate of 101 bpm [place]: normal QRS: normal ST segments: normal Imaging CHEST PA LAT INDICATION: RESP DISTRESS COMPARISON: 02/21/2018 FINDINGS: Heart size within normal limits. There is no focal infiltrate or lobar consolidation. The lungs are hyperexpanded with scarring noted at the left lung base There is no pneumothorax or pleural effusion. IMPRESSION: 1. No acute cardiopulmonary process. 2. Stable COPD Report Dictated By: Nghia Eagle at 04/14/2018 1:39 PM Report E-Signed By: Nghia Eagle at 04/14/2018 1:41 PM ED Course/Re-evaluation ED Course Patient was admitted to an exam room, history and physical were obtained. Differential diagnoses were considered. On examination lungs are diminished, heart is regular, abdomen is soft and nontender. A CBC, CMP, EKG, chest x-ray, troponin, BNP were done. Patient had a negative BNP, chest x-ray showed a sinus tachycardia with PVCs, chest x-ray showed stable COPD, no acute cardiopulmonary processes. Patient did receive a dose of Solu-Medrol and a breathing treatment. On reevaluation lungs were much better, she did have some very slight wheezing. We did repeat the breathing treatment and got up and walked her. Patient states continued to have some shortness of breath and difficulty breathing after walking. I discussed this with the patient. She states she would prefer to go home. We will go ahead and give her a dose of prednisone here in the emergency room. We will send her home with a prescription for days. She is to follow-up with her primary care provider in the next week. She is return to the emergency room if condition worsens. Patient and her friend verbalized understanding and agreement with plan. Decision to Disposition Date: Apr 14, 2018 Decision to Disposition Time: 14:36 Depart Departure Latest Vital Signs Vital Signs Date Time Temp Pulse Resp B/P (MAP) Pulse Ox O2 Delivery O2 Flow Rate FiO2 04/14/18 13:59 89 16 04/14/18 13:59 92 Nasal Cannula 3.0 04/14/18 13:11 125/70 (88) 04/14/18 12:50 97.8 Impression: Primary Impression: COPD exacerbation Condition: Improved Disposition: HOME OR SELF-CARE Referrals: AJAY OLIVAREZ MD (PCP) New Scripts Prednisone (PREDNISONE) 20 Mg Tablet 40 MG PO DAILY, #8 TAB Prov: MIRACLE MAHER 04/14/18 Patient Instructions: COPD (Chronic Obstructive Pulmonary Disease) (ED) Additional Instructions: Increase fluid intake. Get plenty of rest. Follow up with your primary care provider in the next week. Return to the ER if condition worsens. Increase oxygen to 5L when you are up moving around. Take the medication as prescribed. MIRACLE MAHER Apr 14, 2018 12:50
[2018-04-14] MEDS ORDERED: methylPREDNIS SUCC 125 MG/2ML IVP ONE (12:55)
[2018-04-14] MEDS ORDERED: ALBUTEROL/IPRATROPIUM 3 ML NEB NEB ONE ×2 (12:55→13:50)
[2018-04-14 13:20] LABS: PLATELET COUNT, AUTOMATED 158 K/uL (150-450)
--- NOTE | 2018-04-14 13:44 | RADIOLOGY IMAGING REPORT ---
FACILITY: PATIENT NAME: Anali Magaña : 1940 MR: [id number] V: [id number] EXAM DATE: ORDERING PHYSICIAN: MIRACLE MAHER TECHNOLOGIST: [place] [facility] [place] Anali Magaña : 1940 Visit/Account:[id number] Date of Sevice: 04/14/2018 CHEST PA LAT INDICATION: RESP DISTRESS COMPARISON: 02/21/2018 FINDINGS: Heart size within normal limits. There is no focal infiltrate or lobar consolidation. The lungs are hyperexpanded with scarring note d at the left lung base There is no pneumothorax or pleural effusion. IMPRESSION: 1. No acute cardiopulmonary process. 2. Stable COPD Report Dictated By: Nghia Eagle at 04/14/2018 1:39 PM Report E-Signed By: Nghia Eagle at 04/14/2018 1:41 PM WSN:[id number]
[2018-04-14 14:30] VITALS: BP 111/64
[2018-04-14] MEDS ORDERED: predniSONE 20 MG TAB PO ONE (14:35)
[2018-04-14] MEDS ORDERED: PRED20TA6 PO (14:37)
--- NOTE | 2018-04-14 17:51 | EKG ---
FACILITY: [facility] - [place] PATIENT NAME: ESTRADA CARMONA : [id number] MR: [id number] V: [id number] EXAM DATE: ORDERING PHYSICIAN: MIRACLE MAHER TECHNOLOGIST: Test Reason : Blood Pressure : / mmHG Vent. Rate : 101 BPM Atrial Rate : 101 BPM P-R Int : 164 ms QRS Dur : 084 ms QT Int : 368 ms P-R-T Axes : 080 053 067 degrees QTc Int : 477 ms Sinus tachycardia with premature supraventricular complexes Otherwise normal ECG When compared with ECG of 21-FEB-2018 15:59, premature supraventricular complexes are now present Confirmed by Lalo Cortes ([id number] on 04/14/2018 9:03:43 PM Referred By: Confirmed By:Lalo Larios
== END 2018-04-14 14:57 | disposition home or self-care (01) ==
LOC: ER 13:04
DX: J44.1 Chronic obstructive pulmonary disease with (acute) exacerbation (principal)
CPT/HCPCS: 71046; 81001; 83880; 84484; 85025; 87088; 93005; 94640; 96374; 99284; J2930; J7512; J7620; 82040; 82247; 82310; 82374; 82435; 82565; 82947; 84075; 84132; 84155; 84295; 84450; 84460; 84520

== ENCOUNTER 2018-05-21 15:41 | Emergency (ER) | payer MEDICARE ==
[2015-09-29 10:19] VITALS: Wt 63.5 kg
--- NOTE | 2018-05-21 15:49 | ER Report ---
History and Physical Time Seen By MD: 15:47 HPI/ROS CHIEF COMPLAINT: Shortness of breath HISTORY OF PRESENT ILLNESS: This is a 78-year-old female who presents to the emergency department for dyspnea. Patient states she's had cold symptoms over the last several days, has had increased shortness of breath significantly worse last night and today. Patient states that she has been increasing her home oxygen demands, now up to 4 L nasal cannula. 50+ year history of smoking, COPD. Patient has a dry nonproductive cough. Patient has supraclavicular and intercostal retractions, 3-4 word sentences. Upon arrival patient's room air saturation was at 80%. She's had no documented fevers however she states she's had chills, denies sore throat, no chest pain, rashes or meningismus. REVIEW OF SYSTEMS: Constitutional: As above. Eyes: No discharge. ENT: No sore throat. Cardiovascular: No chest pain, no palpitations. Respiratory: As above. Gastrointestinal: No abdominal pain, no vomiting. Genitourinary: No hematuria. Musculoskeletal: No back pain. Skin: No rashes. Neurological: No headache. Allergies: Coded Allergies: No Known Drug Allergies (Unverified , 09/28/15) Home Meds Active Scripts Albuterol Sulfate 0.083% (ALBUTEROL SULFATE 0.083%) 2.5 Mg/3 Ml Vial.neb, 2.5 MG INH Q4-6H PRN for SHORTNESS OF BREATH, #20 VIAL Prov:HERMINIO [facility] 05/21/18 Prednisone (PREDNISONE) 20 Mg Tablet, 20 MG PO BID, #10 TAB Prov:HERMINIO VEE [facility] 05/21/18 Simvastatin (SIMVASTATIN) 10 Mg Tablet, 10 MG PO HS, #30 TAB Prov:AJAY PABON MD 04/12/18 Umeclidinium Brm/Vilanterol Tr (Anoro Ellipta 62.5-25 Mcg INH) 1 Each Dis k.w.dev, 1 PUFF INH QDAY, #1 DISK 5 Refills Prov:AJAY PABON MD 01/07/18 Albuterol Sulfate (VENTOLIN HFA) 18 Gm Inh, 2 PUFF INH Q4-6H PRN for SHORTNESS OF BREATH, #1 INH 9 Refills Prov:AJAY PABON MD 02/22/17 Oxygen (OXYGEN) Inha, 3-4 L INH DIRECTED, #0 L Prov:AJAY PABON MD 09/30/15 Reported Medications Turmeric Root Extract (Turmeric) 538 Mg Capsule 05/21/18 Ibuprofen (IBUPROFEN) 200 Mg Tablet, 2 TAB PO Q6H PRN for PRN, TAB 09/28/15 Calcium Carb & Cit/Vitamin D3 (CALCIUM + VITAMIN D3 CAPLET) 1 Each Tablet.er, 1 EACH PO 09/05/12 Multivitamin (DAILY VITAMIN) 1 Each Tablet, 1 EACH PO 09/05/12 Discontinued Scripts Prednisone (PREDNISONE) 20 Mg Tablet, 40 MG PO DAILY, #8 TAB Prov:MIRACLE MAHER 04/14/18 Past Medical/Surgical History The patient has a past medical and surgical history of COPD, breast cancer, mastectomy, tubal ligation, 50+ year history of smoking, cataract surgery, tendinitis, wears glasses, hypercholesterolemia. Reviewed Nurses Notes: Yes Hx Smoking: Yes (1/2PPD) Smoking Status: Former Smoker Exposure to Second Hand Smoke?: No Hx Substance Use Disorder: No Hx Alcohol Use: No Constitutional Vital Sign - Last 24 Hours 05/21/18 05/21/18 05/21/18 05/21/18 15:46 15:47 15:56 16:00 Temp 98.1 Pulse 140 113 Resp 40 25 B/P (MAP) 149/87 (107) 149/87 130/81 (97) Pulse Ox 80 91 O2 Delivery Nasal Cannula 05/21/18 05/21/18 05/21/18 05/21/18 16:11 16:25 16:25 16:26 Pulse 102 102 103 Resp 31 18 47 Pulse Ox 91 91 90 O2 Delivery Oxy Mask O2 Flow Rate 7.5 05/21/18 05/21/18 05/21/18 05/21/18 16:30 16:41 16:56 17:00 Pulse 96 107 Resp 24 40 B/P (MAP) 134/77 (96) 124/77 (93) Pulse Ox 91 90 05/21/18 05/21/18 05/21/18 05/21/18 17:05 17:20 17:27 17:30 Pulse ? Resp 24 B/P (MAP) 124/68 (86) Pulse Ox 92 O2 Flow Rate 8.0 05/21/18 05/21/18 05/21/18 05/21/18 17:35 17:50 17:52 17:52 Pulse 96 93 96 Resp 17 12 18 Pulse Ox 93 91 92 O2 Delivery Oxy Mask O2 Flow Rate 7.0 05/21/18 05/21/18 05/21/18 05/21/18 18:00 18:05 18:20 18:30 Pulse 98 100 Resp 25 17 B/P (MAP) 127/77 (94) 118/64 (82) Pulse Ox 92 92 05/21/18 05/21/18 05/21/18 05/21/18 18:35 18:40 18:55 19:00 Pulse 96 97 96 Resp 16 27 25 B/P (MAP) 125/67 (86) Pulse Ox 94 92 93 05/21/18 05/21/18 05/21/18 05/21/18 19:10 19:20 19:20 19:25 Pulse 93 96 94 Resp 11 18 17 Pulse Ox 92 92 91 O2 Delivery Oxy Mask O2 Flow Rate 7.0 05/21/18 05/21/18 05/21/18 19:40 19:45 20:01 Pulse 98 100 Resp 23 11 B/P (MAP) 161/79 (106) Pulse Ox 91 93 Physical Exam General Appearance: The patient is alert, has no immediate need for airway protection and no signs of toxicity, 3-4 word sentences, supraclavicular and intercostal retractions. Eyes: Pupils equal and round no pallor or injection. ENT, Mouth: Mucous membranes are dry. Respiratory: Diminished throughout, moving very little air. Cardiovascular: Regular rate and rhythm, no murmurs, clicks or rubs. Gastrointestinal: Abdomen is soft and non tender, no masses, bowel sounds normal. Neurological: Alert and oriented 4. Moving all extremities. Following all commands. No focal neuro deficits. Skin: Warm and dry, no rashes. Musculoskeletal: Neck is supple non tender. Extremities are nontender, nonswollen and have full range of motion. DIFFERENTIAL DIAGNOSIS: After history and physical exam differential diagnosis was considered for shortness of breath including but not limited to pulmonary infectious process, COPD, asthma, pulmonary embolus and congestive heart failure. Medical Decision Making Data Points Result Diagram: 05/21/18 1551 05/21/18 1551 Laboratory Hematology Test 05/21/18 15:51 05/21/18 17:48 Red Blood Count 4.92 M/uL (4.17-5.56) Mean Corpuscular Volume 96.7 fL (80.0-96.0) Mean Corpuscular Hemoglobin 33.0 pg (26.0-33.0) Mean Corpuscular Hemoglobin Concent 34.2 g/dL (32.0-36.0) Red Cell Distribution Width 13.4 % (11.5-14.5) Mean Platelet Volume 7.6 fL (7.2-11.1) Neutrophils (%) (Auto) 55.3 % (39.4-72.5) Lymphocytes (%) (Auto) 34.4 % (17.6-49.6) Monocytes (%) (Auto) 7.8 % (4.1-12.4) Eosinophils (%) (Auto) 2.0 % (0.4-6.7) Basophils (%) (Auto) 0.5 % (0.3-1.4) Nucleated RBC Relative Count (auto) 0.1 /100WBC Neutrophils # (Auto) 5.0 K/uL (2.0-7.4) Lymphocytes # (Auto) 3.1 K/uL (1.3-3.6) Monocytes # (Auto) 0.7 K/uL (0.3-1.0) Eosinophils # (Auto) 0.2 K/uL (0.0-0.5) Basophils # (Auto) 0.0 K/uL (0.0-0.1) Nucleated RBC Absolute Count (auto) 0.01 K/uL D-Dimer Quantitative (PE/DVT) 0.81 ug/ml (0-0.50) Sodium Level 139 mmol/L (137-145) Potassium Level 3.6 mmol/L (3.5-5.0) Chloride Level 102 mmol/L (98-107) Carbon Dioxide Level 27 mmol/L (22-31) Blood Urea Nitrogen 12 mg/dl (7-18) Creatinine 0.90 mg/dl (0.52-1.04) Glomerular Filtration Rate Calc > 60.0 Random Glucose 92 mg/dl (75-110) Calcium Level 9.5 mg/dl (8.4-10.2) Total Bilirubin 0.6 mg/dl (0.2-1.3) Aspartate Amino Transf (AST/SGOT) 27 U/L (0-35) Alanine Aminotransferase (ALT/SGPT) 20 U/L (0-56) Alkaline Phosphatase 75 U/L (0-126) Troponin I < 0.012 ng/ml B-Type Natriuretic Peptide 35 pg/ml (0-100) Total Protein 8.1 g/dl (6.3-8.2) Albumin 4.8 g/dl (3.5-5.0) Influenza Virus Type A (PCR) Negative (NEGATIVE) Influenza Virus Type B (PCR) Negative (NEGATIVE) Chemistry Test 05/21/18 15:51 05/21/18 17:48 White Blood Count 9.1 k/uL (4.5-11.0) Red Blood Count 4.92 M/uL (4.17-5.56) Hemoglobin 16.2 g/dL (12.0-16.0) Hematocrit 47.5 % (34.0-47.0) Mean Corpuscular Volume 96.7 fL (80.0-96.0) Mean Corpuscular Hemoglobin 33.0 pg (26.0-33.0) Mean Corpuscular Hemoglobin Concent 34.2 g/dL (32.0-36.0) Red Cell Distribution Width 13.4 % (11.5-14.5) Platelet Count 176 K/uL (150-450) Mean Platelet Volume 7.6 fL (7.2-11.1) Neutrophils (%) (Auto) 55.3 % (39.4-72.5) Lymphocytes (%) (Auto) 34.4 % (17.6-49.6) Monocytes (%) (Auto) 7.8 % (4.1-12.4) Eosinophils (%) (Auto) 2.0 % (0.4-6.7) Basophils (%) (Auto) 0.5 % (0.3-1.4) Nucleated RBC Relative Count (auto) 0.1 /100WBC Neutrophils # (Auto) 5.0 K/uL (2.0-7.4) Lymphocytes # (Auto) 3.1 K/uL (1.3-3.6) Monocytes # (Auto) 0.7 K/uL (0.3-1.0) Eosinophils # (Auto) 0.2 K/uL (0.0-0.5) Basophils # (Auto) 0.0 K/uL (0.0-0.1) Nucleated RBC Absolute Count (auto) 0.01 K/uL D-Dimer Quantitative (PE/DVT) 0.81 ug/ml (0-0.50) Glomerular Filtration Rate Calc > 60.0 Calcium Level 9.5 mg/dl (8.4-10.2) Total Bilirubin 0.6 mg/dl (0.2-1.3) Aspartate Amino Transf (AST/SGOT) 27 U/L (0-35) Alanine Aminotransferase (ALT/SGPT) 20 U/L (0-56) Alkaline Phosphatase 75 U/L (0-126) Troponin I < 0.012 ng/ml B-Type Natriuretic Peptide 35 pg/ml (0-100) Total Protein 8.1 g/dl (6.3-8.2) Albumin 4.8 g/dl (3.5-5.0) Influenza Virus Type A (PCR) Negative (NEGATIVE) Influenza Virus Type B (PCR) Negative (NEGATIVE) Coagulation Test 05/21/18 15:51 D-Dimer Quantitative (PE/DVT) 0.81 ug/ml EKG/Imaging EKG Interpretation 12 lead EKG: Time of EKG 1623. Rhythm: Sinus rhythm, ventricular rate 99 bpm. Low voltage EKG. [place]: normal QRS: normal ST segments: No ST depression or elevation identified, flattened T-wave in lead 1, aVL, V2 otherwise unremarkable. No significant changes from the 04/14/2018 EKG. Imaging Location: [facility] [place] Patient: Anali Magaña : 1940 Visit/Account:[id number] Date of Sevice: 05/21/2018 Exam type: CHEST SINGLE AP History: RESP DISTRESS Comparison: April 14, 2018. Findings: Again noted is hyperexpansion the lung garcia with mild scarring in the left lung base. There is no evidence of acute pulmonary consolidation or pleural effusions. No evidence of a pneumothorax or pneumomediastinum. The cardiac silhouette is normal in size. There is mild ectasia the thoracic aorta. IMPRESSION: 1. Mild hyperinflation lung garcia and mild left basilar scarring although no evidence of acute pulmonary consolidation Report Dictated By: Nancy Tobin MD at 05/21/2018 4:51 PM Report E-Signed By: Nancy Tobin MD at 05/21/2018 4:53 PM WSN:[email or web address] Location: [facility] [place] Patient: Anali Magaña : 1940 Visit/Account:[id number] Date of Sevice: 05/21/2018 CT CTA CHEST W & W/O CON HISTORY: short of breath, elevated ddimer TECHNIQUE: CTA chest with intravenous contrast attention to pulmonary arteries. Sagittal, coronal and slab 3D MIP coronal reconstructed images were also created for further evaluation and interpretation. One of the following dose optimization techniques was utilized in the performance of this exam: Automated exposure control; adjustment of the mA and/or kV according to the patient's size; or use of an iterative reconstruction technique. Specific details can be referenced in the facility's radiology CT exam operational policy. CONTRAST: 75 mL Isovue-370. COMPARISON: None. FINDINGS: Heart/vessels: Satisfactory opacification of the pulmonary arteries without visualized pulmonary embolus. Moderate to advanced atherosclerosis within the thoracic aorta. Mild calcification within the LAD. Trace pericardial effusion. Mediastinum: Negative. Lymph nodes: Negative. Lungs/pleura: Mild/moderate right apical pleural scarring. Background of advanced emphysematous change. No focal consolidation or pulmonary infiltrate. Mild basilar atelectasis and/or scarring. Scattered airway secretions/mucous plugging. Visualized upper abdomen: 12 x 5 mm calculus within the left renal pelvis without hydronephrosis. Multiple nonspecific subcentimeter gastrohepatic ligament lymph nodes. Bones/soft tissues: Negative. IMPRESSION: 1. No acute findings. Negative for pulmonary embolus. 2. Background of advanced emphysematous changes. 3. 12 x 5 mm nonobstructing calculus within the left renal pelvis. 4. Additional incidental/chronic findings, as above. Report Dictated By: Fredrick Goodwin MD at 05/21/2018 6:40 PM Report E-Signed By: Fredrick Goodwin MD at 05/21/2018 6:46 PM WSN:[facility] ED Course/Re-evaluation Clinical Indication for ER IV: Hydration, IV Access ED Course The patient was admitted to room. A history and physical were obtained. Differential diagnoses were considered. An IV was started. A CBC, CMP, influenza, troponin and d-dimer were obtained. EKG showing sinus rhythm. CBC showing hemoglobin 16.2, H&H 47.5 and 96.7, chemistry unremarkable, negative troponin, normal BNP, d-dimer slightly elevated at 0.81, a CT of the chest was negative for pulmonary emboli. Negative influenza. Single view chest x-ray show ing Mild hyperinflation lung garcia and mild left basilar scarring although no evidence of acute pulmonary consolidation. I reviewed the results with the patient, I did tell her there was no PE or pneumonia, that this is likely a COPD exacerbation. She did receive a total of 3 DuoNeb swell and the emergency department with significant relief of her symptoms, she also received 125 mg IV Solu-Medrol. We discussed and admission to the hospital, patient states she preferred to go home at this time and follow up with her primary care provider this week for reevaluation. As the patient had significant relief of her symptoms, I was agreeable with this, she was also given 3 albuterol nebulizers to go home with, a prescription for albuterol was sent to the patient's pharmacy as well as a 5 day burst of steroids. The patient was agreeable with this plan of care and discharged. Decision to Disposition Date: May 21, 2018 Decision to Disposition Time: 19:05 Depart Departure Latest Vital Signs Vital Signs Date Time Temp Pulse Resp B/P (MAP) Pulse Ox O2 Delivery O2 Flow Rate FiO2 05/21/18 20:01 161/79 (106) 05/21/18 19:45 100 11 93 05/21/18 19:20 Oxy Mask 7.0 05/21/18 15:47 98.1 Impression: Primary Impression: COPD exacerbation Condition: Improved Disposition: HOME OR SELF-CARE Referrals: AJAY PABON MD (PCP) 5 Days New Scripts Albuterol Sulfate 0.083% (ALBUTEROL SULFATE 0.083%) 2.5 Mg/3 Ml Vial.neb 2.5 MG INH Q4-6H PRN for SHORTNESS OF BREATH, #20 VIAL Prov: HERMINIO VEE [employer] 05/21/18 Prednisone (PREDNISONE) 20 Mg Tablet 20 MG PO BID, #10 TAB Prov: HERMINIO VEE 05/21/18 Patient Instructions: COPD (Chronic Obstructive Pulmonary Disease) (ED) Additional Instructions: Please use the albuterol nebulizers every 4-6 hours as needed for shortness of breath. Take the prednisone as prescribed. Please follow-up with Dr. Pabon's office this week for reevaluation. Drink plenty of water. Get plenty of rest. Return to the emergency department for any other concerns or worsening symptoms. HERMINIO VEE [employer]- May 21, 2018 15:49
[2018-05-21] MEDS ORDERED: TURM538C (15:56)
[2018-05-21] MEDS ORDERED: NS(*) 0.9% 500 ML BAG 500 ML IV ONE (16:02)
[2018-05-21] MEDS ORDERED: ALBUTEROL/IPRATROPIUM 3 ML NEB NEB ONE ×3 (16:05→19:05)
[2018-05-21] MEDS ORDERED: methylPREDNIS SUCC 125 MG/2ML IVP ONE (16:05)
[2018-05-21 16:24] LABS: PLATELET COUNT, AUTOMATED 176 K/uL (150-450)
--- NOTE | 2018-05-21 16:28 | EKG ---
FACILITY: [facility] PATIENT NAME: ESTRADA CARMONA : [id number] MR: [id number] V: [id number] EXAM DATE: ORDERING PHYSICIAN: HERMINIO VEE TECHNOLOGIST: LU Desir Reason : SOB Blood Pressure : / mmHG Vent. Rate : 099 BPM Atrial Rate : 099 BPM P-R Int : 172 ms QRS Dur : 078 ms QT Int : 370 ms P-R-T Axes : 082 058 065 degrees QTc Int : 474 ms Sinus rhythm and borderline tachycardic Otherwise normal ECG When compared with ECG of 14-APR-2018 13:09, relatively unchanged Confirmed by SEAN MAI ([id number]) on 05/21/2018 8:06:12 PM Referred By: SHERON Confirmed By:SEAN MAI
--- NOTE | 2018-05-21 16:57 | RADIOLOGY IMAGING REPORT ---
[place] [facility] [place] Anali Magaña : 1940 MR: [id number] V: [id number] EXAM DATE: ORDERING PHYSICIAN: HERMINIO VEE TECHNOLOGIST: Location: [facility] Patient: Anali Magaña : 1940 Visit/Account:[id number] Date of Sevice: 05/21/2018 Exam type: CHEST SINGLE AP History: RESP DISTRESS Comparison: April 14, 2018. Findings: Again noted is hyperexpansion the lung garcia with mild scarring in the left lung base. There is no evidence of acute pulmonary consolidation or pleural effusions. No evidence of a pneumothorax or pne umomediastinum. The cardiac silhouette is normal in size. There is mild ectasia the thoracic aorta. IMPRESSION: 1. Mild hyperinflation lung garcia and mild left basilar scarring although no evidence of acute pulm onary consolidation Report Dictated By: Nancy Tobin MD at 05/21/2018 4:51 PM Report E-Signed By: Nancy Tobin MD at 05/21/2018 4:53 PM WSN:[email or web address]
[2018-05-21] MEDS ORDERED: IOPAMIDOL 76% 100 ML INFUS BTL 100 ML ONE (18:11)
[2018-05-21] MEDS ORDERED: NS(*) 0.9% 50 ML BAG 50 ML ONE (18:12)
--- NOTE | 2018-05-21 18:51 | RADIOLOGY IMAGING REPORT ---
FACILITY: [facility] - [place] PATIENT NAME: Anali Magaña : 1940 MR: [id number] V: [id number] EXAM DATE: ORDERING PHYSICIAN: HERMINIO VEE TECHNOLOGIST: Location: [facility] [place] Patient: Anali Magaña : 1940 Visit/Account:[id number] Date of Sevice: 05/21/2018 CT CTA CHEST W & W/O CON HISTORY: short of breath, elevated ddimer TECHNIQUE: CTA chest with intravenous contrast attention to pulmonary arteries. Sagittal, coronal a nd slab 3D MIP coronal reconstructed images were also created for further evaluation and interpretati on. One of the following dose optimization techniques was utilized in the performance of this exam: Autom ated exposure control; adjustment of the mA and/or kV according to the patient's size; or use of an i terative reconstruction technique. Specific details can be referenced in the facility's radiology CT exam operational policy. CONTRAST: 75 mL Isovue-370. COMPARISON: None. FINDINGS: Heart/vessels: Satisfactory opacification of the pulmonary arteries without visualized pulmonary emb olus. Moderate to advanced atherosclerosis within the thoracic aorta. Mild calcification within the LAD. Trace pericardial effusion. Mediastinum: Negative. Lymph nodes: Negative. Lungs/pleura: Mild/moderate right apical pleural scarring. Background of advanced emphysematous denis nge. No focal consolidation or pulmonary infiltrate. Mild basilar atelectasis and/or scarring. Sca ttered airway secretions/mucous plugging. Visualized upper abdomen: 12 x 5 mm calculus within the left renal pelvis without hydronephrosis. M ultiple nonspecific subcentimeter gastrohepatic ligament lymph nodes. Bones/soft tissues: Negative. IMPRESSION: 1. No acute findings. Negative for pulmonary embolus. 2. Background of advanced emphysematous changes. 3. 12 x 5 mm nonobstructing calculus within the left renal pelvis. 4. Additional incidental/chronic findings, as above. Report Dictated By: Fredrick Goodwin MD at 05/21/2018 6:40 PM Report E-Signed By: Fredrick Goodwin MD at 05/21/2018 6:46 PM WSN:[email or web address]
[2018-05-21] MEDS ORDERED: ALBUTEROL 2.5 MG/3 ML NEB NEB ONE (19:05)
[2018-05-21] MEDS ORDERED: ALBU2.5V36 INH (19:07)
[2018-05-21] MEDS ORDERED: PRED20TA6 PO (19:07)
[2018-05-21 20:01] VITALS: BP 161/79
[2018-05-24] MEDS ORDERED: ALB18R INH (09:37)
[2018-05-27] MEDS ORDERED: PRED20TA6 PO (15:54)
== END 2018-05-21 20:03 | disposition home or self-care (01) ==
LOC: ER 15:54
DX: J44.1 Chronic obstructive pulmonary disease with (acute) exacerbation (principal)
CPT/HCPCS: 71045; 71275; 83880; 84484; 85025; 85379; 87502; 93005; 94640; 96361; 96374; 99284; J2930; J7040; J7050; J7620; Q9967; 82040; 82247; 82310; 82374; 82435; 82565; 82947; 84075; 84132; 84155; 84295; 84450; 84460; 84520

== ENCOUNTER 2018-07-17 16:56 | Emergency (ER) | payer MEDICARE ==
[2015-09-29 10:19] VITALS: Wt 68.0 kg
[~2018-07-17 16:56] MED LIST changes: +ALBU2.5V36 INH; +TURM538C
[2018-07-17] MEDS ORDERED: ALBUTEROL/IPRATROPIUM 3 ML NEB NEB ONE ×2 (17:20→17:50)
[2018-07-17] MEDS ORDERED: methylPREDNIS SUCC 125 MG/2ML IVP ONE (17:20)
--- NOTE | 2018-07-17 17:24 | ER Report ---
History and Physical Time Seen By MD: 17:11 Hx. of Stated Complaint: increased shortness of breath that started one week ago. has COPD and is on 4l o2 via NC at home HPI/ROS CHIEF COMPLAINT: Shortness of breath. HISTORY OF PRESENT ILLNESS: 78 yo female presents to the ED for increasing SOB over the last few days with a semi-productive cough. She states that she quit smoking since she was diagnosed with COPD but she reports recently spending time at her sister's house and and she is a heavy smoker. This seems to have been the cause of the current exacerbation according to the patient. Denies fever, chills, sore throat or recent illness. Denies chest pain. Denies abdominal pain, N/V/D. Denies pain or difficulty with urination. Reports a rash on her back that developed a few days ago but denies itching or burning. REVIEW OF SYSTEMS: Constitutional: As above. Eyes: No discharge. ENT: As above. Cardiovascular: As above. Respiratory: As above. Gastrointestinal: As above. Genitourinary: As above. Musculoskeletal: No back pain. Skin: As above. Neurological: No headache. Allergies: Coded Allergies: No Known Drug Allergies (Unverified , 07/17/18) Home Meds Active Scripts Prednisone (PREDNISONE) 20 Mg Tablet, 40 MG PO QDAY, #17 TAB 40mg once a day for 4 days. 30mg once a day for 3 days. 20mg once a day for 3 days. 10mg once a day for 2 days. Prov:HERMINIO VEE FINANCE AND ADMINISTRATION MANAGER-BC 07/17/18 Albuterol Sulfate 0.083% (ALBUTEROL SULFATE 0.083%) 2.5 Mg/3 Ml Vial.neb, 2.5 MG INH Q4-6H PRN for SHORTNESS OF BREATH, #60 VIAL 1 Refill Prov:AJAY PABON MD 07/17/18 Albuterol Sulfate (VENTOLIN HFA) 18 Gm Inh, 2 PUFF INH Q4-6H PRN for SHORTNESS OF BREATH, #1 INH Prov:AJAY PABON MD 05/24/18 Simvastatin (SIMVASTATIN) 10 Mg Tablet, 10 MG PO HS, #30 TAB Prov:AJAY PABON MD 04/12/18 Umeclidinium Brm/Vilanterol Tr (Anoro Ellipta 62.5-25 Mcg INH) 1 Each Disk.w.dev, 1 PUFF INH QDAY, #1 DISK 5 Refills Prov:AJAY PABON MD 01/07/18 Oxygen (OXYGEN) Inha, 3-4 L INH DIRECTED, #0 L Prov:AJAY PABON MD 09/30/15 Reported Medications Turmeric Root Extract (Turmeric) 538 Mg Capsule 05/21/18 Ibuprofen (IBUPROFEN) 200 Mg Tablet, 2 TAB PO Q6H PRN for PRN, TAB 09/28/15 Calcium Carb & Cit/Vitamin D3 (CALCIUM + VITAMIN D3 CAPLET) 1 Each Tablet.er, 1 EACH PO 09/05/12 Multivitamin (DAILY VITAMIN) 1 Each Tablet, 1 EACH PO 09/05/12 Discontinued Scripts Prednisone (PREDNISONE) 20 Mg Tablet, 20 MG PO BID, #10 TAB Prov:AJAY PABON MD 05/27/18 Past Medical/Surgical History The patient has a past medical and surgical history of a 50+ year smoking, COPD, continuous oxygen use, menopause, arthritis, osteoporosis, wears glasses, cataracts, tinnitus, breast cancer, right mastectomy, cataract surgery. Reviewed Nurses Notes: Yes Hx Smoking: Yes (1/2PPD) Smoking Status: Former Smoker Exposure to Second Hand Smoke?: No Hx Substance Use Disorder: No Hx Alcohol Use: No Constitutional Vital Sign - Last 24 Hours 07/17/18 07/17/18 07/17/18 07/17/18 17:01 17:03 17:25 17:25 Temp 97.6 Pulse 130 114 Resp 24 B/P (MAP) 167/86 167/86 (113) Pulse Ox 92 94 O2 Delivery Nasal Cannula Nasal Cannula O2 Flow Rate 4.0 07/17/18 07/17/18 07/17/18 07/17/18 17:30 17:31 17:53 17:53 Pulse 114 113 114 Resp 24 20 B/P (MAP) 119/60 (79) Pulse Ox 96 92 O2 Delivery Nasal Cannula O2 Flow Rate 4.0 07/17/18 07/17/18 07/17/18 07/17/18 17:59 18:00 18:30 18:35 Pulse 109 113 116 112 Resp 20 B/P (MAP) 120/67 (84) 104/80 (88) Pulse Ox 96 91 90 07/17/18 07/17/18 07/17/18 07/17/18 18:40 18:45 18:50 18:55 Pulse 108 112 109 108 Pulse Ox 91 91 91 90 07/17/18 07/17/18 19:00 19:05 Pulse 105 105 B/P (MAP) 123/64 (83) Pulse Ox 91 92 Physical Exam General Appearance: The patient is alert, has no immediate need for airway protection and no signs of toxicity. Eyes: Pupils equal and round no pallor or injection. ENT, Mouth: Mucous membranes are moist. Respiratory: There are retractions, lungs are diminshed and coarse to auscultation. Cardiovascular: Regular rate and rhythm. Nu Murmurs or rubs noted. Gastrointestinal: Abdomen is soft and non tender, no masses, bowel sounds normal. Neurological: A&Ox4, No neuro deficits noted. Skin: Warm and dry, with a very faint diffuse, blanchable, red rash on upper back. Musculoskeletal: Neck is supple non tender. Extremities are nontender, nonswollen and have full range of motion. DIFFERENTIAL DIAGNOSIS: After history and physical exam differential diagnosis was considered for COPD exacerbation, pneumonia, bronchitis, pulmonary edema, pulmonary embolism. Medical Decision Making Data Points Result Diagram: 07/17/18 1709 07/17/18 1709 Laboratory Hematology Test 07/17/18 17:09 Red Blood Count 4.80 M/uL (4.17-5.56) Mean Corpuscular Volume 97.9 fL (80.0-96.0) Mean Corpuscular Hemoglobin 33.5 pg (26.0-33.0) Mean Corpuscular Hemoglobin Concent 34.3 g/dL (32.0-36.0) Red Cell Distribution Width 13.6 % (11.5-14.5) Mean Platelet Volume 7.0 fL (7.2-11.1) Neutrophils (%) (Auto) 49.4 % (39.4-72.5) Lymphocytes (%) (Auto) 36.7 % (17.6-49.6) Monocytes (%) (Auto) 9.3 % (4.1-12.4) Eosinophils (%) (Auto) 3.8 % (0.4-6.7) Basophils (%) (Auto) 0.8 % (0.3-1.4) Nucleated RBC Relative Count (auto) 0.0 /100WBC Neutrophils # (Auto) 4.2 K/uL (2.0-7.4) Lymphocytes # (Auto) 3.1 K/uL (1.3-3.6) Monocytes # (Auto) 0.8 K/uL (0.3-1.0) Eosinophils # (Auto) 0.3 K/uL (0.0-0.5) Basophils # (Auto) 0.1 K/uL (0.0-0.1) Nucleated RBC Absolute Count (auto) 0.00 K/uL Sodium Level 141 mmol/L (137-145) Potassium Level 3.6 mmol/L (3.5-5.0) Chloride Level 102 mmol/L (98-107) Carbon Dioxide Level 27 mmol/L (22-31) Blood Urea Nitrogen 12 mg/dl (7-18) Creatinine 0.90 mg/dl (0.52-1.04) Glomerular Filtration Rate Calc > 60.0 Random Glucose 105 mg/dl (75-110) Calcium Level 10.3 mg/dl (8.4-10.2) Chemistry Test 07/17/18 17:09 White Blood Count 8.6 k/uL (4.5-11.0) Red Blood Count 4.80 M/uL (4.17-5.56) Hemoglobin 16.1 g/dL (12.0-16.0) Hematocrit 47.0 % (34.0-47.0) Mean Corpuscular Volume 97.9 fL (80.0-96.0) Mean Corpuscular Hemoglobin 33.5 pg (26.0-33.0) Mean Corpuscular Hemoglobin Concent 34.3 g/dL (32.0-36.0) Red Cell Distribution Width 13.6 % (11.5-14.5) Platelet Count 207 K/uL (150-450) Mean Platelet Volume 7.0 fL (7.2-11.1) Neutrophils (%) (Auto) 49.4 % (39.4-72.5) Lymphocytes (%) (Auto) 36.7 % (17.6-49.6) Monocytes (%) (Auto) 9.3 % (4.1-12.4) Eosinophils (%) (Auto) 3.8 % (0.4-6.7) Basophils (%) (Auto) 0.8 % (0.3-1.4) Nucleated RBC Relative Count (auto) 0.0 /100WBC Neutrophils # (Auto) 4.2 K/uL (2.0-7.4) Lymphocytes # (Auto) 3.1 K/uL (1.3-3.6) Monocytes # (Auto) 0.8 K/uL (0.3-1.0) Eosinophils # (Auto) 0.3 K/uL (0.0-0.5) Basophils # (Auto) 0.1 K/uL (0.0-0.1) Nucleated RBC Absolute Count (auto) 0.00 K/uL Glomerular Filtration Rate Calc > 60.0 Calcium Level 10.3 mg/dl (8.4-10.2) EKG/Imaging Imaging Location: [facility] Patient: Anali Magaña : 1940 Visit/Account:[id number] Date of Sevice: 07/17/2018 INDICATION: shortness of breath. DATE: 07/17/2018 6:49 PM. TECHNIQUE: CHEST PA LAT COMPARISON: Chest radiograph from 07/19/2018 FINDINGS: Curvilinear opacity at the left base partially obscures the hemidiaphragm. Heart size is normal. Aortic arch atherosclerosis is prominent. IMPRESSION: Curvilinear opacity at the left base is likely atelectasis. Report Dictated By: Zachary Beaver MD at 07/17/2018 6:49 PM Report E-Signed By: Zachary Beaver MD at 07/17/2018 6:53 PM WSN:[id number] ED Course/Re-evaluation Clinical Indication for ER IV: IV Access ED Course Patient admitted to room. History and physical obtained with differential diagnoses considered. IV started. CMP and BMP obtained without remarkable findings. Duoneb x2 and solumedrol administered with improvement. Two-view chest x-ray showing no acute findings, mild atelectasis. I did review the results with the patient. She expressed understanding, did tell the patient this is a COPD exacerbation, she was placed on a 10 day tapering dose of steroids. Patient expressed understanding, will follow-up with her primary care provider she had no other questions or concerns at this time and discharged home. The patient was seen and evaluated by ANGELA Cummins student, I agree with her assessment and plan, I did evaluate and assess the patient myself. Decision to Disposition Date: Jul 17, 2018 Decision to Disposition Time: 19:03 Depart Departure Latest Vital Signs Vital Signs Date Time Temp Pulse Resp B/P (MAP) Pulse Ox O2 Delivery O2 Flow Rate FiO2 07/17/18 19:05 105 92 07/17/18 19:00 123/64 (83) 07/17/18 17:59 20 07/17/18 17:53 Nasal Cannula 4.0 07/17/18 17:01 97.6 Impression: Primary Impression: COPD exacerbation Condition: Improved Disposition: HOME OR SELF-CARE Referrals: AJAY PABON MD (PCP) 1 Week New Scripts Prednisone (PREDNISONE) 20 Mg Tablet 40 MG PO QDAY, #17 TAB 40mg once a day for 4 days. 30mg once a day for 3 days. 20mg once a day for 3 days. 10mg once a day for 2 days. Prov: HERMINIO VEE 07/17/18 Patient Instructions: COPD (Chronic Obstructive Pulmonary Disease) (ED), Nutrition Guidelines for People with COPD (ED) Additional Instructions: Please take the prednisone as prescribed. Use your nebulizers as needed for shortness of breath. Follow-up with Dr. Pabon within 1 week for reevaluation. Be sure to drink plenty of water. Get plenty of rest. Return to the emergency department for any other concerns or worsening symptoms. HERMINIO VEE Jul 17, 2018 17:24
[2018-07-17 17:27] LABS: PLATELET COUNT, AUTOMATED 207 K/uL (150-450)
[2018-07-17] MEDS ORDERED: PRED20TA6 PO (18:44)
--- NOTE | 2018-07-17 18:57 | RADIOLOGY IMAGING REPORT ---
FACILITY: [facility] PATIENT NAME: Anali Magaña : 1940 MR: [id number] V: [id number] EXAM DATE: ORDERING PHYSICIAN: HERMINIO VEE TECHNOLOGIST: Location: [facility] [place] Patient: Anali Magaña : 1940 Visit/Account:[id number] Date of Sevice: 07/17/2018 INDICATION: shortness of breath. DATE: 07/17/2018 6:49 PM. TECHNIQUE: CHEST PA LAT COMPARISON: Chest radiograph from 07/19/2018 FINDINGS: Curvilinear opacity at the left base partially obscures the hemidiaphragm. Heart size is no rmal. Aortic arch atherosclerosis is prominent. IMPRESSION: Curvilinear opacity at the left base is likely atelectasis. Report Dictated By: Zachary Beaver MD at 07/17/2018 6:49 PM Report E-Signed By: Zachary Beaver MD at 07/17/2018 6:53 PM WSN:[id number]
[2018-07-17 19:00] VITALS: BP 123/64
== END 2018-07-17 19:16 | disposition home or self-care (01) ==
LOC: ER 17:03
DX: J44.1 Chronic obstructive pulmonary disease with (acute) exacerbation (principal); Z87.891 Personal history of nicotine dependence
CPT/HCPCS: 85025; 94640; 96374; 99284; J2930; J7620; 71046; 82310; 82374; 82435; 82565; 82947; 84132; 84295; 84520

== ENCOUNTER 2018-08-15 10:05 | Inpatient (IN) | payer MEDICARE ==
[~2018-08-15] VITALS: Ht 162.6 cm; Wt 63.0 kg
[2018-08-15] MEDS ORDERED: ALBUTEROL/IPRATROPIUM 3 ML NEB NEB STA (10:13)
[2018-08-15] MEDS ORDERED: NS(*) 0.9% 1000 ML BAG 1,000 ML IV ONE ×2 (10:15→13:05)
[2018-08-15] MEDS ORDERED: methylPREDNIS SUCC 125 MG/2ML IVP ONE (10:15)
[2018-08-15] MEDS ORDERED: ALBUTEROL/IPRATROPIUM 3 ML NEB ONE (10:23)
[2018-08-15 10:25] LABS: PLATELET COUNT, AUTOMATED 192 K/uL (150-450)
--- NOTE | 2018-08-15 10:27 | ER Report ---
History and Physical Time Seen By MD: 10:05 Hx. of Stated Complaint: hasn't felt well for a few days. last night it got really bad, she thought she could wait it out. today she has audible weezing, extreme sob, needs a wheelchair, can't talk more than 3-4 words in a row HPI/ROS CHIEF COMPLAINT: Shortness of breath HISTORY OF PRESENT ILLNESS: 78-year-old female with history of COPD, no longer uses tobacco, not recently on steroids, no recent hospitalizations, never been intubated. She presents with shortness of breath 3 days that feels like COPD exacerbation. She has been using home nebulizer as well as rescue inhaler, now without relief. She presents with dyspnea and difficulty catching her breath both at rest and exertion. Dyspnea is severe. She has occasional cough with clear sputum. She does not have chest pain or chest pressure. She has not had nausea or vomiting. She has not had leg swelling. She has no recent travel and no history of DVT or PE. REVIEW OF SYSTEMS: Constitutional: chills Eyes: No discharge. ENT: No sore throat. Cardiovascular: No chest pain, no palpitations. Respiratory: above Gastrointestinal: No abdominal pain, no vomiting. Genitourinary: no dysuria Musculoskeletal: No back pain. Skin: No rashes. Neurological: No headache. Remainder of the 14 system rev: Yes Allergies: Coded Allergies: No Known Drug Allergies (Unverified , 08/15/18) Home Meds Active Scripts Albuterol Sulfate (VENTOLIN HFA) 18 Gm Inh, 2 PUFF INH Q4-6H PRN for SHORTNESS OF BREATH, #1 INH 3 Refills Prov:AJAY OLIVAREZ MD 08/06/18 Prednisone (PREDNISONE) 20 Mg Tablet, 40 MG PO QDAY, #17 TAB 40mg once a day for 4 days. 30mg once a day for 3 days. 20mg once a day for 3 days. 10mg once a day for 2 days. Prov:HERMINIO VEE FIRE PREVENTION FORESTER-BC 07/17/18 Albuterol Sulfate 0.083% (ALBUTEROL SULFATE 0.083%) 2.5 Mg/3 Ml Vial.neb, 2.5 MG INH Q4-6H PRN for SHORTNESS OF BREATH, #60 VIAL 1 Refill Prov:AJAY OLIVAREZ MD 07/17/18 Simvastatin (SIMVASTATIN) 10 Mg Tablet, 10 MG PO HS, #30 TAB Prov:AJAY OLIVAREZ MD 04/12/18 Umeclidinium Brm/Vilanterol Tr (Anoro Ellipta 62.5-25 Mcg INH) 1 Each Disk.w.dev, 1 PUFF INH QDAY, #1 DISK 5 Refills Prov:AJAY OLIVAREZ MD 01/07/18 Oxygen (OXYGEN) Inha, 3-4 L INH DIRECTED, #0 L Prov:AJAY OLIVAREZ MD 09/30/15 Reported Medications Turmeric Root Extract (Turmeric) 538 Mg Capsule 05/21/18 Ibuprofen (IBUPROFEN) 200 Mg Tablet, 2 TAB PO Q6H PRN for PRN, TAB 09/28/15 Calcium Carb & Cit/Vitamin D3 (CALCIUM + VITAMIN D3 CAPLET) 1 Each Tablet.er, 1 EACH PO 09/05/12 Multivitamin (DAILY VITAMIN) 1 Each Tablet, 1 EACH PO 09/05/12 Reviewed Nurses Notes: Yes Old Medical Records Reviewed: Yes Hx Smoking: Yes (1/2PPD) Smoking Status: Former Smoker Exposure to Second Hand Smoke?: No Hx Substance Use Disorder: No Hx Alcohol Use: No Constitutional Vital Sign - Last 24 Hours 08/15/18 08/15/18 08/15/18 08/15/18 10:05 10:09 10:10 10:12 Temp 97.7 Pulse ??? 139 141 Resp 28 B/P (MAP) 155/87 155/87 (109) Pulse Ox 83 83 O2 Delivery Nasal Cannula 08/15/18 08/15/18 08/15/18 08/15/18 10:15 10:18 10:20 10:24 Pulse 131 123 B/P (MAP) 128/82 (97) Pulse Ox 93 92 92 O2 Delivery Bi-PAP O2 Flow Rate 15.0 FiO2 60.0 08/15/18 08/15/18 08/15/18 08/15/18 10:24 10:24 10:25 10:30 Pulse 139 120 114 Resp 34 Pulse Ox 96 96 FiO2 60.0 08/15/18 08/15/18 08/15/18 08/15/18 10:35 10:40 10:45 10:50 Pulse 111 111 113 109 B/P (MAP) 136/76 (96) Pulse Ox 97 97 97 95 08/15/18 08/15/18 08/15/18 08/15/18 10:55 11:00 11:00 11:00 Pulse 112 121 111 Resp 30 B/P (MAP) 136/83 (100) Pulse Ox 95 95 95 O2 Delivery Bi-PAP FiO2 50.0 08/15/18 08/15/18 08/15/18 08/15/18 11:05 11:10 11:15 11:20 Pulse 112 111 112 104 B/P (MAP) 127/84 (98) Pulse Ox 95 96 95 93 08/15/18 08/15/18 08/15/18 08/15/18 11:20 11:20 11:25 11:35 Pulse 114 116 117 Resp 28 Pulse Ox 93 92 90 O2 Delivery Bi-PAP FiO2 30.0 08/15/18 08/15/18 08/15/18 08/15/18 11:40 11:45 11:50 12:00 Pulse 114 114 118 118 B/P (MAP) 134/79 (97) 140/84 (102) Pulse Ox 90 90 91 92 08/15/18 08/15/18 08/15/18 12:05 12:10 12:15 Pulse 114 115 115 Pulse Ox 93 92 90 Physical Exam General Appearance: The patient is alert, she is tachypneic, pale, with retractions and pursed lip breathing. Eyes: Pupils equal and round no pallor or injection. ENT, Mouth: mucous membranes dry Respiratory: retractions, occ wheezes throughout insp and exp, poor air movement Cardiovascular: tachycardia to 130's Gastrointestinal: Abdomen is soft and non tender, no masses, bowel sounds normal. Neurological: alert, oriented, speaks clearly in 1-2 word sentences Skin: Warm and dry, no rashes. Musculoskeletal: Extremities are nontender, nonswollen and have full range of motion. DIFFERENTIAL DIAGNOSIS: After history and physical exam differential diagnosis was considered for copd exaceration, pneumonia, acs, pe, or other emergent etiology Medical Decision Making Data Points Result Diagram: 08/15/18 1015 08/15/18 1015 Laboratory Hematology Test 08/15/18 10:15 08/15/18 11:09 Red Blood Count 4.76 M/uL (4.17-5.56) Mean Corpuscular Volume 98.8 fL (80.0-96.0) Mean Corpuscular Hemoglobin 33.4 pg (26.0-33.0) Mean Corpuscular Hemoglobin Concent 33.8 g/dL (32.0-36.0) Red Cell Distribution Width 13.5 % (11.5-14.5) Mean Platelet Volume 6.9 fL (7.2-11.1) Neutrophils (%) (Auto) 65.9 % (39.4-72.5) Lymphocytes (%) (Auto) 24.8 % (17.6-49.6) Monocytes (%) (Auto) 6.9 % (4.1-12.4) Eosinophils (%) (Auto) 1.7 % (0.4-6.7) Basophils (%) (Auto) 0.7 % (0.3-1.4) Nucleated RBC Relative Count (auto) 0.0 /100WBC Neutrophils # (Auto) 5.5 K/uL (2.0-7.4) Lymphocytes # (Auto) 2.1 K/uL (1.3-3.6) Monocytes # (Auto) 0.6 K/uL (0.3-1.0) Eosinophils # (Auto) 0.1 K/uL (0.0-0.5) Basophils # (Auto) 0.1 K/uL (0.0-0.1) Nucleated RBC Absolute Count (auto) 0.00 K/uL Sodium Level 141 mmol/L (137-145) Potassium Level 3.9 mmol/L (3.5-5.0) Chloride Level 103 mmol/L (98-107) Carbon Dioxide Level 29 mmol/L (22-31) Blood Urea Nitrogen 14 mg/dl (7-18) Creatinine 0.90 mg/dl (0.52-1.04) Glomerular Filtration Rate Calc > 60.0 Random Glucose 165 mg/dl (75-110) Calcium Level 9.3 mg/dl (8.4-10.2) Total Bilirubin 0.7 mg/dl (0.2-1.3) Aspartate Amino Transf (AST/SGOT) 25 U/L (0-35) Alanine Aminotransferase (ALT/SGPT) 18 U/L (0-56) Alkaline Phosphatase 72 U/L (0-126) Total Protein 8.0 g/dl (6.3-8.2) Albumin 4.6 g/dl (3.5-5.0) Blood Gas Puncture Site Left radial Blood Gas Patient Temperature 97.7 DEGREES Arterial Blood pH 7.31 (7.35-7.45) Arterial Blood Partial Pressure CO2 49 mmHg (32-37) Arterial Blood Partial Pressure O2 136 mmHg (60-80) Arterial Blood HCO3 25 mmol/L (20-26) Arterial Blood Oxygen Saturation 99 % (92-100) Arterial Blood Base Excess -1.0 mmol/L Shoaib Test Acceptable Oxygen Liters/Minute 50 Chemistry Test 08/15/18 10:15 08/15/18 11:09 White Blood Count 8.4 k/uL (4.5-11.0) Red Blood Count 4.76 M/uL (4.17-5.56) Hemoglobin 15.9 g/dL (12.0-16.0) Hematocrit 47.0 % (34.0-47.0) Mean Corpuscular Volume 98.8 fL (80.0-96.0) Mean Corpuscular Hemoglobin 33.4 pg (26.0-33.0) Mean Corpuscular Hemoglobin Concent 33.8 g/dL (32.0-36.0) Red Cell Distribution Width 13.5 % (11.5-14.5) Platelet Count 192 K/uL (150-450) Mean Platelet Volume 6.9 fL (7.2-11.1) Neutrophils (%) (Auto) 65.9 % (39.4-72.5) Lymphocytes (%) (Auto) 24.8 % (17.6-49.6) Monocytes (%) (Auto) 6.9 % (4.1-12.4) Eosinophils (%) (Auto) 1.7 % (0.4-6.7) Basophils (%) (Auto) 0.7 % (0.3-1.4) Nucleated RBC Relative Count (auto) 0.0 /100WBC Neutrophils # (Auto) 5.5 K/uL (2.0-7.4) Lymphocytes # (Auto) 2.1 K/uL (1.3-3.6) Monocytes # (Auto) 0.6 K/uL (0.3-1.0) Eosinophils # (Auto) 0.1 K/uL (0.0-0.5) Basophils # (Auto) 0.1 K/uL (0.0-0.1) Nucleated RBC Absolute Count (auto) 0.00 K/uL Glomerular Filtration Rate Calc > 60.0 Calcium Level 9.3 mg/dl (8.4-10.2) Total Bilirubin 0.7 mg/dl (0.2-1.3) Aspartate Amino Transf (AST/SGOT) 25 U/L (0-35) Alanine Aminotransferase (ALT/SGPT) 18 U/L (0-56) Alkaline Phosphatase 72 U/L (0-126) Total Protein 8.0 g/dl (6.3-8.2) Albumin 4.6 g/dl (3.5-5.0) Blood Gas Puncture Site Left radial Blood Gas Patient Temperature 97.7 DEGREES Arterial Blood pH 7.31 (7.35-7.45) Arterial Blood Partial Pressure CO2 49 mmHg (32-37) Arterial Blood Partial Pressure O2 136 mmHg (60-80) Arterial Blood HCO3 25 mmol/L (20-26) Arterial Blood Oxygen Saturation 99 % (92-100) Arterial Blood Base Excess -1.0 mmol/L Shoaib Test Acceptable Oxygen Liters/Minute 50 EKG/Imaging EKG Interpretation 12 lead EKG: Rhythm: sinus tachycardia [place]: normal QRS: normal ST segments: borderline st depressions v4-5. No st elevation. [ ] Monitor Interpretation: Sinus Tachycardia ED Course/Re-evaluation ED Course 78 f presents with severe copd exacerbation; initially requires bipap, continuous nebs, iv solumedrol. After monitoring closely, she improves to point that she no longer requires bipap, but has continued milder tachypnea, mild retractions and pursed lip breathing. Considered but doubt pe, bacterail pneumonia, acs, or other emergent etiology. Will admit for close monitoring, frequent nebs, iv abx, and further evaluation. Decision to Disposition Date: August 15, 2018 Decision to Disposition Time: 12:30 Critical Care Time I spent a total of 75 minutes of critical care time in obtaining history, performing a physical exam, bedside monitoring of interventions, collecting and interpreting tests and discussion with consultants but not including time spent performing procedures. Depart Departure Latest Vital Signs Vital Signs Date Time Temp Pulse Resp B/P (MAP) Pulse Ox O2 Delivery O2 Flow Rate FiO2 08/15/18 12:15 115 90 08/15/18 12:00 140/84 (102) 08/15/18 11:20 Bi-PAP 30.0 08/15/18 11:20 28 08/15/18 10:18 15.0 08/15/18 10:09 97.7 Impression: Primary Impression: COPD exacerbation Condition: Improved Disposition: Admitted from ER Referrals: AJAY OLIVAREZ MD (PCP) ZACH CARDENAS MD August 15, 2018 10:27
[2018-08-15] MEDS ORDERED: ALBUTEROL/IPRATROPIUM 3 ML NEB NEB ONE ×2 (10:30→12:35)
--- NOTE | 2018-08-15 11:12 | RADIOLOGY IMAGING REPORT ---
[place] [facility] [place] Anali Magaña : 1940 MR: [id number] V: [id number] EXAM DATE: ORDERING PHYSICIAN: ZACH CARDENAS TECHNOLOGIST: Location: [facility] Patient: Anali Magaña : 1940 Visit/Account:[id number] Date of Sevice: 08/15/2018 Exam type: CHEST SINGLE AP History: dyspnea Comparison: Two-view chest July 17, 2018. [address] CT of the chest. 12/09/2018 Findings: There is a small amount linear scarring in the left lung base appears similar to the recent CTA of th e chest. There is no evidence of acute appearing infiltrates, pleural effusions or pulmonary edema. No evidence of a pneumothorax or pneumomediastinum. The cardiac silhouette is normal in size. IMPRESSION: 1. Small amount left basilar scarring although no evidence of acute pulmonary consolidation Report Dictated By: Nancy Tobin MD at 08/15/2018 11:03 AM Report E-Signed By: Nancy Tobin MD at 08/15/2018 11:06 AM WSN:[id number]
--- NOTE | 2018-08-15 11:18 | EKG ---
FACILITY: [facility] PATIENT NAME: ESTRADA CARMONA : [id number] MR: [id number] V: [id number] EXAM DATE: ORDERING PHYSICIAN: ZACH CARDENAS TECHNOLOGIST: PALOMA Test Reason : SOB Blood Pressure : / mmHG Vent. Rate : 129 BPM Atrial Rate : 129 BPM P-R Int : 154 ms QRS Dur : 074 ms QT Int : 300 ms P-R-T Axes : 086 090 071 degrees QTc Int : 439 ms Sinus tachycardia Query left atrial enlargement. When compared with ECG of 21-MAY-2018 16:23, No significant change was found Confirmed by JASON BASHIR ([id number]) on 08/15/2018 9:04:45 PM Referred By: THERESA Confirmed By:JASON BASHIR
[2018-08-15] MEDS ORDERED: cefTRIAXone(*) 1 GM VIAL 1 GM in NS(*) 0.9% 100 ML MINI-BAG 100 ML IVPB ONE (12:35)
[2018-08-15] MEDS ORDERED: AZITHROMYCIN(*) 500 MG 500 MG in NS(*) 0.9% 250 ML BAG 250 ML IVPB ONE ×2 (12:35→14:30)
[2018-08-15] MEDS ORDERED: ONDANSETRON 4 MG/2 ML VIAL IVP ONE (12:40)
[2018-08-15 13:29] VITALS: BP 132/65
[2018-08-15] MEDS ORDERED: CHOL500025 PO (13:41)
[2018-08-15] MEDS ORDERED: CALC500T6 PO (13:41)
[2018-08-15] MEDS ORDERED: DEXT354L PO (13:43)
[2018-08-15] MEDS ORDERED: ACET-1966 PO (13:43)
[2018-08-15] MEDS ORDERED: INFLUENZA VIRUS VAC 0.5ML SYR IM ONLY ONE (14:05)
--- NOTE | 2018-08-15 14:12 | History & Physical ---
History of Present Illness Chief Complaint Shortness of breath History of Present Illness This patient presented to the emergency room complaining of shortness of breath. She required BiPAP in the emergency department, but had it off on arrival to the floor. She was extremely short of breath and using accessory muscles after walking to the rest room. History Problems: (1) Hyperlipidemia Status: Chronic (2) COPD (chronic obstructive pulmonary disease) Status: Chronic Home Meds Active Scripts Albuterol Sulfate (VENTOLIN HFA) 18 Gm Inh, 2 PUFF INH Q4-6H PRN for SHORTNESS OF BREATH, #1 INH 3 Refills Prov:AJAY OLIVAREZ MD 08/06/18 Albuterol Sulfate 0.083% (ALBUTEROL SULFATE 0.083%) 2.5 Mg/3 Ml Vial.neb, 2.5 MG INH Q4-6H PRN for SHORTNESS OF BREATH, #60 VIAL 1 Refill Prov:AJAY OLIVAREZ MD 07/17/18 Simvastatin (SIMVASTATIN) 10 Mg Tablet, 10 MG PO HS, #30 TAB Prov:AJAY OLIVAREZ MD 04/12/18 Umeclidinium Brm/Vilanterol Tr (Anoro Ellipta 62.5-25 Mcg INH) 1 Each Disk.w.dev, 1 PUFF INH QDAY, #1 DISK 5 Refills Prov:AJAY OLIVAREZ MD 01/07/18 Oxygen (OXYGEN) Inha, 3-4 L INH DIRECTED, #0 L Prov:AJAY OLIVAREZ MD 09/30/15 Reported Medications Dextromethorphn/Acetaminoph/Cp (VICKS NYQUIL COLD & FLU LIQUID) 354 Ml Liquid, 354 ML PO HS PRN for CONGESTION 08/15/18 Acetaminophen (TYLENOL) 325 Mg Tablet, 325 MG PO PRN PRN for PAIN, TAB 08/15/18 Cholecalciferol (Vitamin D3) (VITAMIN D3) 5,000 Unit Tablet, 5000 UNIT PO DAILY 08/15/18 Calcium Carbonate (CALCIUM) 500 Mg Tablet, 500 MG PO DAILY 08/15/18 Turmeric Root Extract (Turmeric) 538 Mg Capsule 05/21/18 Multivitamin (DAILY VITAMIN) 1 Each Tablet, 1 EACH PO 09/05/12 Discontinued Reported Medications Ibuprofen (IBUPROFEN) 200 Mg Tablet, 2 TAB PO Q6H PRN for PRN, TAB 09/28/15 Calcium Carb & Cit/Vitamin D3 (CALCIUM + VITAMIN D3 CAPLET) 1 Each Tablet.er, 1 EACH PO 09/05/12 Discontinued Scripts Prednisone (PREDNISONE) 20 Mg Tablet, 40 MG PO QDAY, #17 TAB 40mg once a day for 4 days. 30mg once a day for 3 days. 20mg once a day for 3 days. 10mg once a day for 2 days. Prov:HERMINIO VEE CATTLE TESTER-BC 07/17/18 Allergies: Coded Allergies: No Known Drug Allergies (Unverified , 08/15/18) Patient History: FH: Alzheimers disease FATHER FH: COPD (chronic obstructive pulmonary disease) BROTHER OR SISTER FH: arthritis MOTHER FHx: colon cancer BROTHER OR SISTER, Onset:65 FHx: lung cancer BROTHER OR SISTER, Onset:65 Hx Smoking: Yes (1/2PPD) Smoking Status: Former Smoker Exposure to Second Hand Smoke?: No Caffeine Intake: Coffee Caffeine/Cups Per Day: 4-5 Hx Alcohol Use: No Hx Substance Use Disorder: No Social Drug Use: Never Review of Systems All Systems Reviewed/Normal: Yes, Except as Noted Respiratory: Shortness of Breath, Wheezing Exam Vital Signs Vital Signs Date Time Temp Pulse Resp B/P (MAP) Pulse Ox O2 Delivery O2 Flow Rate FiO2 08/15/18 13:50 74 Nasal Cannula 4.0 08/15/18 13:29 97.7 111 32 132/65 (87) 08/15/18 11:20 30.0 Neuro: No Gross deficits Eyes: PERRLA Cardiovascular: Regular Rate and Rhythm Respiratory: Other (Bilateral wheezes and accessory breathing.) GI: Abd Soft and Non-Tender Extremities: No Edema Integumentary: Cyanosis Medical Decision Making Data Points Result Diagram: 08/15/18 1015 08/15/18 1015 Assessment and Plan Problems: (1) Acute exacerbation of chronic obstructive pulmonary disease (COPD) Assessment & Plan: She will be placed back on the BiPAP. We have also started her on nebulizers, IV steroids, and azithromycin. Copies to: AJAY OLIVAREZ MD ; Venous Thromboembolism Antithrombotics Is Pt On Any Antithrombotics?: No Exam Sepsis Risk: No Definite Risk ABI KELLER DO August 15, 2018 14:12
[2018-08-15] MEDS: AZITHROMYCIN(*) 500 MG 500 MG in NS(*) 0.9% 250 ML BAG 250 ML IVPB SCH (14:53)
[2018-08-15] MEDS: ACETAMINOPHEN 500 MG TAB PO PRN ×2 (15:25→21:38)
[2018-08-15] MEDS: methylPREDNIS SUCC 125 MG/2ML IVP SCH (17:14)
[2018-08-15 19:26] VITALS: BP 124/73
[2018-08-15] MEDS: ALBUTEROL/IPRATROPIUM 3 ML NEB NEB SCH (23:24)
[2018-08-16] MEDS: methylPREDNIS SUCC 125 MG/2ML IVP SCH ×3 (01:08→16:55)
[2018-08-16 02:16] VITALS: BP 114/72
[2018-08-16] MEDS: ALBUTEROL/IPRATROPIUM 3 ML NEB NEB SCH ×4 (05:45→23:59)
[2018-08-16 05:57] LABS: PLATELET COUNT, AUTOMATED 150 K/uL (150-450)
[2018-08-16 08:06] VITALS: BP 120/66
[2018-08-16 08:56] VITALS: Ht 162.6 cm; Wt 63.0 kg
--- NOTE | 2018-08-16 11:21 | Hospitalist Progress Note ---
Subjective Progress Notes Subjective She reports less dyspnea. Still some cough and wheezing. Physical Exam Vital Signs Date Time Temp Pulse Resp B/P (MAP) Pulse Ox O2 Delivery O2 Flow Rate FiO2 08/16/18 11:10 86 16 08/16/18 11:04 94 Nasal Cannula 4.0 08/16/18 08:06 98.4 120/66 (84) 08/15/18 20:00 40.0 Intake and Output 08/16/18 07:00 Intake Total 2614 ml Balance 2614 ml Intake Oral 500 ml IV Total 2114 ml # Voids 4 General Appearance: Alert, Awake Cardiovascular: Regular Rate and Rhythm, No Edema Respiratory: Other (decreased breath sounds bilaterally with expiratory wheezes R>L) GI: Soft and Non-Tender Extremities: Warm, Perfused Psych: Alert & Oriented X3 Result Diagram: 08/16/18 0542 08/16/18 0542 Assessment and Plan Problems: (1) Acute exacerbation of chronic obstructive pulmonary disease (COPD) Status: Acute Assessment & Plan: Improved, but still with some bronchospasm. She is currently on nebulizers, IV steroids, and azithromycin. No changes at this time. Will resume her Anoro when acute problem improved/resolved. She is on oxygen at 4L via nasal cannula chronically. Exam Sepsis Risk: No Definite Risk JENNIE RUSSO MD August 16, 2018 11:21
[2018-08-16] MEDS: AZITHROMYCIN(*) 500 MG 500 MG in NS(*) 0.9% 250 ML BAG 250 ML IVPB SCH (14:20)
[2018-08-16] MEDS: ALBUTEROL 2.5 MG/3 ML NEB NEB PRN (14:48)
[2018-08-16] MEDS ORDERED: NS(*) 0.9% 250 ML BAG 250 ML ONE (15:40)
[2018-08-16 19:00] VITALS: BP 113/64
[2018-08-17] MEDS: methylPREDNIS SUCC 125 MG/2ML IVP SCH ×3 (00:35→16:54)
[2018-08-17 03:52] VITALS: BP 121/69
[2018-08-17] MEDS: ALBUTEROL/IPRATROPIUM 3 ML NEB NEB SCH ×3 (05:17→17:12)
[2018-08-17 07:08] VITALS: BP 130/74
[2018-08-17] MEDS ORDERED: MAGNESIUM HYDROXIDE* 30ML UDCP PO PRN (10:00)
[2018-08-17] MEDS ORDERED: BISACODYL 10 MG SUPP PR PRN (10:00)
[2018-08-17 10:45] VITALS: BP 124/74
[2018-08-17] MEDS: POLYETHYLENE GLYCOL 17 GM PKT PO SCH (10:48)
[2018-08-17] MEDS: DOCUSATE SODIUM 100 MG CAP PO SCH ×2 (10:48→19:49)
[2018-08-17] MEDS: guaiFENesin 600 MG TABCR PO SCH ×2 (11:30→20:50)
--- NOTE | 2018-08-17 11:31 | Hospitalist Progress Note ---
Subjective Progress Notes Subjective She reports overall improvement in SOB. However, still getting very dyspneic and hypoxic with little activity. Physical Exam Vital Signs Date Time Temp Pulse Resp B/P (MAP) Pulse Ox O2 Delivery O2 Flow Rate FiO2 08/17/18 10:45 98.3 90 20 124/74 (91) 95 High-Flow Nasal Cannula 6.0 08/17/18 09:50 35.0 Intake and Output 08/17/18 07:00 Intake Total 540 ml Balance 540 ml Intake Oral 540 ml # Voids 3 General Appearance: Alert, Awake, Other (moderate wob) Cardiovascular: Regular Rate and Rhythm Respiratory: Other (Exp wheezes in mid lung. Not moving air to bases.) Extremities: No Edema Result Diagram: 08/16/18 0542 08/16/18 0542 Assessment and Plan Problems: (1) Acute exacerbation of chronic obstructive pulmonary disease (COPD) Status: Acute Assessment & Plan: She presented with 3 days of worsening SOB. Improving, but still very dyspneic with minimal activity. Still diffusely wheezy and not moving air to bases well. Using BIPAP for recovery and at night for a bit. She is currently on nebulizers, IV steroids, and azithromycin. No changes at this time. Will resume her Anoro when acute problem improved/resolved. She is on oxygen at 4L via nasal cannula chronically. Exam Sepsis Risk: No Definite Risk SEAN MAI MD August 17, 2018 11:31
[2018-08-17] MEDS: CETIRIZINE HCL 10 MG TAB PO SCH (14:14)
[2018-08-17] MEDS: MONTELUKAST SODIUM 10 MG TAB PO SCH (14:14)
[2018-08-17] MEDS: AZITHROMYCIN(*) 500 MG 500 MG in NS(*) 0.9% 250 ML BAG 250 ML IVPB SCH (14:14)
--- NOTE | 2018-08-17 14:16 | Antimicrobial Stewardship ---
Antimicrobial Time Out Antimicrobial Stewardship MD Service: Hospitalist Indications: Other (Acute exacerbation of COPD) Antimicrobial Used Zithromax 500 mg iv q 24 hours Start Date: August 15, 2018 Culture Results: No (Blood culture shows no growth after 2 days and re- incubated.) STEPHANIE ROJAS August 17, 2018 14:16
[2018-08-17 15:01] VITALS: BP 129/70
[2018-08-17 19:20] VITALS: BP 118/62
[2018-08-18] MEDS: ALBUTEROL/IPRATROPIUM 3 ML NEB NEB SCH ×4 (00:05→17:40)
[2018-08-18] MEDS: methylPREDNIS SUCC 125 MG/2ML IVP SCH ×3 (00:17→21:43)
[2018-08-18] MEDS: ALBUTEROL 2.5 MG/3 ML NEB NEB PRN (03:50)
[2018-08-18 09:04] VITALS: BP 121/73
[2018-08-18] MEDS: DOCUSATE SODIUM 100 MG CAP PO SCH ×2 (09:10→21:43)
[2018-08-18] MEDS: guaiFENesin 600 MG TABCR PO SCH ×2 (09:10→21:43)
[2018-08-18] MEDS: POLYETHYLENE GLYCOL 17 GM PKT PO SCH (09:10)
[2018-08-18] MEDS: CETIRIZINE HCL 10 MG TAB PO SCH (09:11)
[2018-08-18] MEDS: MONTELUKAST SODIUM 10 MG TAB PO SCH (09:11)
--- NOTE | 2018-08-18 10:45 | Hospitalist Progress Note ---
Subjective Progress Notes Subjective She reports significant improvement. She is more tolerant of low level activities, but still with significant desaturations with activity. Physical Exam Vital Signs Date Time Temp Pulse Resp B/P (MAP) Pulse Ox O2 Delivery O2 Flow Rate FiO2 08/18/18 09:04 91 High-Flow Nasal Cannula 4.0 08/18/18 09:04 98.3 93 18 121/73 (89) 08/18/18 00:07 30.0 Intake and Output 08/18/18 07:00 Intake Total 1130 ml Balance 1130 ml Intake Oral 880 ml IV Total 250 ml # Voids 5 # Bowel Movements 1 General Appearance: Alert, Awake Cardiovascular: Regular Rate and Rhythm Respiratory: Other (diminished breath sounds bilaterally with prolonged expiratory phase/no wheezes) Extremities: Warm, Perfused Psych: Alert & Oriented X3 Result Diagram: 08/16/1854108/16/18541 Assessment and Plan Problems: (1) Acute exacerbation of chronic obstructive pulmonary disease (COPD) Status: Acute Assessment & Plan: She presented with 3 days of worsening SOB. She has improved, but still very dyspneic with minimal activity. Wheezes have improved. Still requiring high flow O2 with activities (10-12L). She is currently on nebulizers, IV steroids, and azithromycin. We did add Singulair and Zyrtec, which seems to have helped significantly. Will resume her Anoro when acute problem improved/resolved. She is on oxygen at 4L via nasal cannula chronically, but will probably need to increase to 6-10L with activity, even when she is back to her baseline. Exam Sepsis Risk: No Definite Risk JENNIE RUSSO MD August 18, 2018 10:45
[2018-08-18 10:47] VITALS: BP 145/95
[2018-08-18 14:36] VITALS: BP 135/73
[2018-08-18] MEDS: AZITHROMYCIN(*) 500 MG 500 MG in NS(*) 0.9% 250 ML BAG 250 ML IVPB SCH (14:46)
[2018-08-18 20:06] VITALS: BP 124/75
[2018-08-19] MEDS: ALBUTEROL/IPRATROPIUM 3 ML NEB NEB SCH ×2 (00:05→06:24)
[2018-08-19 04:09] VITALS: BP 127/80
[2018-08-19 05:53] LABS: PLATELET COUNT, AUTOMATED 165 K/uL (150-450)
[2018-08-19 07:13] VITALS: BP 120/65
[2018-08-19] MEDS: methylPREDNIS SUCC 125 MG/2ML IVP SCH (08:35)
[2018-08-19] MEDS: DOCUSATE SODIUM 100 MG CAP PO SCH (08:36)
[2018-08-19] MEDS: POLYETHYLENE GLYCOL 17 GM PKT PO SCH (08:36)
[2018-08-19] MEDS: MONTELUKAST SODIUM 10 MG TAB PO SCH (08:36)
[2018-08-19] MEDS: guaiFENesin 600 MG TABCR PO SCH (08:36)
[2018-08-19] MEDS: CETIRIZINE HCL 10 MG TAB PO SCH (08:36)
[2018-08-19] MEDS ORDERED: PRED-1 PO (09:19)
[2018-08-19] MEDS ORDERED: MONT10TA PO (09:19)
[2018-08-19] MEDS ORDERED: CETI-154 PO (09:19)
--- NOTE | 2018-08-19 09:22 | Hospitalist Depart ---
Discharge Summary Reason for Hosp/Final Diag: (1) Acute exacerbation of chronic obstructive pulmonary disease (COPD) Status: Acute Hospital Course & Plan: She presented with 3 days of worsening SOB. She was treated with nebulizers, IV steroids, and azithromycin. We did add Singulair and Zyrtec, which seems to have helped significantly. She will discharge on a prednisone taper. Departure Latest Vital Signs Vital Signs 08/18/18 08/19/18 20:10 07:13 Temp 98.8 Pulse 84 Resp 20 B/P (MAP) 120/65 (83) Pulse Ox 92 O2 Delivery High-Flow Nasal Cannula O2 Flow Rate 3.0 FiO2 30.0 Weight (Pounds): 139 Result Diagram: 08/19/1851608/19/18516 Condition: Improved Discharge: Home, Self Care Discharge Instructions Home Meds Active Scripts Prednisone 10 Mg Tab (PREDNISONE 10 MG TAB) 10 Mg Tablet, 10 MG PO DIRECTED, #30 TAB Take 4 tab daily x 3 days, then 3 tab daily x 3 days, then 2 tab daily x 3 days, then 1 tab daily x 3 days. Prov:ABI KELLER DO 08/19/18 Montelukast Sodium (SINGULAIR) 10 Mg Tablet, 10 MG PO QDAY, #30 TAB Prov:ABI KELLER DO 08/19/18 Cetirizine Hcl (ALL DAY ALLERGY) 10 Mg Tablet, 10 MG PO QDAY, #30 TAB Prov:ABI KELLER DO 08/19/18 Albuterol Sulfate (VENTOLIN HFA) 18 Gm Inh, 2 PUFF INH Q4-6H PRN for SHORTNESS OF BREATH, #1 INH 3 Refills Prov:AJAY OLIVAREZ MD 08/06/18 Albuterol Sulfate 0.083% (ALBUTEROL SULFATE 0.083%) 2.5 Mg/3 Ml Vial.neb, 2.5 MG INH Q4-6H PRN for SHORTNESS OF BREATH, #60 VIAL 1 Refill Prov:AJAY OLIVAREZ MD 07/17/18 Simvastatin (SIMVASTATIN) 10 Mg Tablet, 10 MG PO HS, #30 TAB Prov:AJAY OLIVAREZ MD 04/12/18 Umeclidinium Brm/Vilanterol Tr (Anoro Ellipta 62.5-25 Mcg INH) 1 Each Disk.w.dev, 1 PUFF INH QDAY, #1 DISK 5 Refills Prov:AJAY OLIVAREZ MD 01/07/18 Oxygen (OXYGEN) Inha, 3-4 L INH DIRECTED, #0 L Prov:AJAY OLIVAREZ MD 09/30/15 Reported Medications Dextromethorphn/Acetaminoph/Cp (VICKS NYQUIL COLD & FLU LIQUID) 354 Ml Liquid, 354 ML PO HS PRN for CONGESTION 08/15/18 Acetaminophen (TYLENOL) 325 Mg Tablet, 325 MG PO PRN PRN for PAIN, TAB 08/15/18 Cholecalciferol (Vitamin D3) (VITAMIN D3) 5,000 Unit Tablet, 5000 UNIT PO DAILY 08/15/18 Calcium Carbonate (CALCIUM) 500 Mg Tablet, 500 MG PO DAILY 08/15/18 Turmeric Root Extract (Turmeric) 538 Mg Capsule 05/21/18 Multivitamin (DAILY VITAMIN) 1 Each Tablet, 1 EACH PO 09/05/12 Discontinued Reported Medications Ibuprofen (IBUPROFEN) 200 Mg Tablet, 2 TAB PO Q6H PRN for PRN, TAB 09/28/15 Calcium Carb & Cit/Vitamin D3 (CALCIUM + VITAMIN D3 CAPLET) 1 Each Tablet.er, 1 EACH PO 09/05/12 Discontinued Scripts Prednisone (PREDNISONE) 20 Mg Tablet, 40 MG PO QDAY, #17 TAB 40mg once a day for 4 days. 30mg once a day for 3 days. 20mg once a day for 3 days. 10mg once a day for 2 days. Prov:HERMINIO VEE FINISHER POLISHER-BC 07/17/18 Diet: Regular Activity: As Tolerated Copies to: AJAY OLIVAREZ MD ; Venous Thromboembolism Antithrombotics Is Pt On Any Antithrombotics?: No ABI KELLER DO August 19, 2018 09:22
== END 2018-08-19 10:55 | disposition home or self-care (01) | DRG 192 ==
LOC: ER 10:20 → MED 12:46
PROVIDERS: ADMIT Family Medicine; ATTEND Family Medicine
PROC: 5A09357 Assistance with Respiratory Ventilation, Less than 24 Consecutive Hours, Continuous Positive Airway Pressure (ICD-10-PCS; principal; 2018-08-15)
DX: J44.1 Chronic obstructive pulmonary disease with (acute) exacerbation (principal); E78.5 Hyperlipidemia, unspecified; Z87.891 Personal history of nicotine dependence
CPT/HCPCS: 36415; 36600; 71045; 82040; 82247; 82310; 82374; 82435; 82565; 82803; 82947; 84075; 84132; 84155; 84295; 84450; 84460; 84520; 85025; 87040; 93005; 94640; 94644; 94660; 94667; 94668; 96361; 96374; 96375; 99291; J0456; J0696; J2405; J2930; J7030; J7050; J7613

== ENCOUNTER 2018-09-10 10:08 | Emergency (ER) | payer MEDICARE ==
[2018-08-16 08:56] VITALS: Wt 61.2 kg
[~2018-09-10 10:08] MED LIST changes: +ACET-1966 PO; +CALC500T6 PO; +CETI-154 PO; +CHOL500025 PO; +DEXT354L PO; +MONT10TA PO
[2018-09-10] MEDS ORDERED: ALBUTEROL/IPRATROPIUM 3 ML NEB ONE (10:17)
--- NOTE | 2018-09-10 10:25 | ER Report ---
History and Physical Time Seen By MD: 10:24 Hx. of Stated Complaint: hx of copd,after awakening 1 hours ago sob, getting worse for a few days HPI/ROS CHIEF COMPLAINT: Shortness breath, history of COPD HISTORY OF PRESENT ILLNESS: Patient is a 78-year-old female here with complaints of cough, shortness breath in the setting of COPD. Patient has been taking her DuoNeb treatments 3 times daily without relief of symptoms. Patient is afebrile, hemodynamically stable at time of evaluation. Patient reportedly had company o linda the weekend and delayed evaluation with resulting decline in ease of breathing. Patient is on baseline 4.5 L nasal cannula. Patient is alert and oriented, denies chest pain, abdominal pain, nausea, vomiting. REVIEW OF SYSTEMS: Constitutional: No fever, no chills. Eyes: No discharge. ENT: No sore throat. Cardiovascular: No chest pain, no palpitations. Respiratory: + cough, + shortness of breath. Gastrointestinal: No abdominal pain, no vomiting. Genitourinary: No hematuria. Musculoskeletal: No back pain. Skin: No rashes. Neurological: No headache. Allergies: Coded Allergies: No Known Drug Allergies (Unverified , 09/10/18) Home Meds Active Scripts Levofloxacin 750 Mg Tab (LEVAQUIN 750 MG TAB) 750 Mg Tablet, 750 MG PO QDAY for 5 Days, #5 TAB Prov:JASON HOLBROOK DO 09/10/18 Prednisone (PREDNISONE) 50 Mg Tablet, 50 MG PO QDAY for 5 Days, #5 TAB Prov:JASON HOLBROOK S DO 09/10/18 Albuterol Sulfate 0.083% (ALBUTEROL SULFATE 0.083%) 2.5 Mg/3 Ml Vial.neb, 2.5 MG INH Q4-6H PRN for SHORTNESS OF BREATH, #60 VIAL 1 Refill Prov:AJAY OLIVAREZ MD 09/09/18 Simvastatin (SIMVASTATIN) 10 Mg Tablet, 10 MG PO HS, #90 TAB 3 Refills Prov:AJAY OLIVAREZ MD 09/02/18 Umeclidinium Brm/Vilanterol Tr (Anoro Ellipta 62.5-25 Mcg INH) 1 Each Disk.w.dev, 1 PUFF INH QDAY, #1 DISK 5 Refills Prov:AJAY OLIVAREZ MD 08/29/18 Prednisone 10 Mg Tab (PREDNISONE 10 MG TAB) 10 Mg Tablet, 10 MG PO DIRECTED, #30 TAB Take 4 tab daily x 3 days, then 3 tab daily x 3 days, then 2 tab daily x 3 days, then 1 tab daily x 3 days. Prov:ABI KELLER DO 08/19/18 Montelukast Sodium (SINGULAIR) 10 Mg Tablet, 10 MG PO QDAY, #30 TAB Prov:ABI KELLER DO 08/19/18 Cetirizine Hcl (ALL DAY ALLERGY) 10 Mg Tablet, 10 MG PO QDAY, #30 TAB Prov:ABI KELLER DO 08/19/18 Albuterol Sulfate (VENTOLIN HFA) 18 Gm Inh, 2 PUFF INH Q4-6H PRN for SHORTNESS OF BREATH, #1 INH 3 Refills Prov:AJAY OLIVAREZ MD 08/06/18 Oxygen (OXYGEN) Inha, 3-4 L INH DIRECTED, #0 L Prov:AJAY OLIVAREZ MD 09/30/15 Reported Medications Acetaminophen (TYLENOL) 325 Mg Tablet, 325 MG PO PRN PRN for PAIN, TAB 08/15/18 Cholecalciferol (Vitamin D3) (VITAMIN D3) 5,000 Unit Tablet, 5000 UNIT PO DAILY 08/15/18 Calcium Carbonate (CALCIUM) 500 Mg Tablet, 500 MG PO DAILY 08/15/18 Turmeric Root Extract (Turmeric) 538 Mg Capsule 05/21/18 Multivitamin (DAILY VITAMIN) 1 Each Tablet, 1 EACH PO 09/05/12 Discontinued Reported Medications Dextromethorphn/Acetaminoph/Cp (VICKS NYQUIL COLD & FLU LIQUID) 354 Ml Liquid, 354 ML PO HS PRN for CONGESTION 08/15/18 Hx Smoking: Yes (1/2PPD) Smoking Status: Former Smoker Exposure to Second Hand Smoke?: No Hx Substance Use Disorder: No Hx Alcohol Use: No Constitutional Vital Sign - Last 24 Hours 09/10/18 09/10/18 09/10/18 09/10/18 10:15 10:19 10:19 10:23 Temp 97.7 Pulse 117 109 Resp 32 21 B/P (MAP) 131/6 Pulse Ox 87 91 O2 Delivery Nasal Cannula Oxy Mask O2 Flow Rate 6.0 6.0 09/10/18 10:28 Pulse 103 Resp 21 Physical Exam General Appearance: The patient is alert, has no immediate need for airway protection and no signs of toxicity. Eyes: Pupils equal and round no pallor or injection. ENT, Mouth: Mucous membranes are moist. Respiratory: + Bilateral crackles, diminished breath sounds, wheezing Cardiovascular: Regular rate and rhythm. Gastrointestinal: Abdomen is soft and non tender, no masses, bowel sounds normal. Neurological: Alert and oriented, no focal neurological findings on examination Skin: Warm and dry, no rashes. Musculoskeletal: Neck is supple non tender. Extremities are nontender, nonswollen and have full range of motion. DIFFERENTIAL DIAGNOSIS: After history and physical exam differential diagnosis was considered for shortness of breath including but not limited to pulmonary infectious process, COPD, asthma, pulmonary embolus and congestive heart failure. Medical Decision Making Data Points Result Diagram: 09/10/18 1048 09/10/18 1048 Laboratory Hematology Test 09/10/18 10:48 09/10/18 11:24 Red Blood Count 4.37 M/uL (4.17-5.56) Mean Corpuscular Volume 99.4 fL (80.0-96.0) Mean Corpuscular Hemoglobin 33.9 pg (26.0-33.0) Mean Corpuscular Hemoglobin Concent 34.1 g/dL (32.0-36.0) Red Cell Distribution Width 13.4 % (11.5-14.5) Mean Platelet Volume 7.2 fL (7.2-11.1) Neutrophils (%) (Auto) 63.6 % (39.4-72.5) Lymphocytes (%) (Auto) 25.0 % (17.6-49.6) Monocytes (%) (Auto) 6.5 % (4.1-12.4) Eosinophils (%) (Auto) 4.5 % (0.4-6.7) Basophils (%) (Auto) 0.4 % (0.3-1.4) Nucleated RBC Relative Count (auto) 0.0 /100WBC Neutrophils # (Auto) 3.3 K/uL (2.0-7.4) Lymphocytes # (Auto) 1.3 K/uL (1.3-3.6) Monocytes # (Auto) 0.3 K/uL (0.3-1.0) Eosinophils # (Auto) 0.2 K/uL (0.0-0.5) Basophils # (Auto) 0.0 K/uL (0.0-0.1) Nucleated RBC Absolute Count (auto) 0.00 K/uL Prothrombin Time 12.1 seconds (12.0-14.4) Prothromb Time International Ratio 0.90 Activated Partial Thromboplast Time 27 seconds (23-35) Sodium Level 144 mmol/L (137-145) Potassium Level 4.1 mmol/L (3.5-5.0) Chloride Level 105 mmol/L (98-107) Carbon Dioxide Level 31 mmol/L (22-31) Blood Urea Nitrogen 9 mg/dl (7-18) Creatinine 0.90 mg/dl (0.52-1.04) Glomerular Filtration Rate Calc > 60.0 Random Glucose 110 mg/dl (75-110) Calcium Level 9.1 mg/dl (8.4-10.2) Total Bilirubin 0.5 mg/dl (0.2-1.3) Aspartate Amino Transf (AST/SGOT) 23 U/L (0-35) Alanine Aminotransferase (ALT/SGPT) 31 U/L (0-56) Alkaline Phosphatase 78 U/L (0-126) B-Type Natriuretic Peptide 26 pg/ml (0-100) Total Protein 7.0 g/dl (6.3-8.2) Albumin 3.9 g/dl (3.5-5.0) Lipase 111 U/L (23-300) Blood Gas Patient Temperature 97.7 DEGREES Venous Blood pH 7.33 (7.31-7.41) Venous Blood Partial Pressure CO2 52 mmHg Venous Blood Partial Pressure O2 36 mmHg Venous Blood HCO3 28 mmol/L Venous Blood Oxygen Saturation 66 % Venous Blood Base Excess 2 mmol/L Oxygen Liters/Minute 6l Chemistry Test 09/10/18 10:48 09/10/18 11:24 White Blood Count 5.2 k/uL (4.5-11.0) Red Blood Count 4.37 M/uL (4.17-5.56) Hemoglobin 14.8 g/dL (12.0-16.0) Hematocrit 43.4 % (34.0-47.0) Mean Corpuscular Volume 99.4 fL (80.0-96.0) Mean Corpuscular Hemoglobin 33.9 pg (26.0-33.0) Mean Corpuscular Hemoglobin Concent 34.1 g/dL (32.0-36.0) Red Cell Distribution Width 13.4 % (11.5-14.5) Platelet Count 150 K/uL (150-450) Mean Platelet Volume 7.2 fL (7.2-11.1) Neutrophils (%) (Auto) 63.6 % (39.4-72.5) Lymphocytes (%) (Auto) 25.0 % (17.6-49.6) Monocytes (%) (Auto) 6.5 % (4.1-12.4) Eosinophils (%) (Auto) 4.5 % (0.4-6.7) Basophils (%) (Auto) 0.4 % (0.3-1.4) Nucleated RBC Relative Count (auto) 0.0 /100WBC Neutrophils # (Auto) 3.3 K/uL (2.0-7.4) Lymphocytes # (Auto) 1.3 K/uL (1.3-3.6) Monocytes # (Auto) 0.3 K/uL (0.3-1.0) Eosinophils # (Auto) 0.2 K/uL (0.0-0.5) Basophils # (Auto) 0.0 K/uL (0.0-0.1) Nucleated RBC Absolute Count (auto) 0.00 K/uL Prothrombin Time 12.1 seconds (12.0-14.4) Prothromb Time International Ratio 0.90 Activated Partial Thromboplast Time 27 seconds (23-35) Glomerular Filtration Rate Calc > 60.0 Calcium Level 9.1 mg/dl (8.4-10.2) Total Bilirubin 0.5 mg/dl (0.2-1.3) Aspartate Amino Transf (AST/SGOT) 23 U/L (0-35) Alanine Aminotransferase (ALT/SGPT) 31 U/L (0-56) Alkaline Phosphatase 78 U/L (0-126) B-Type Natriuretic Peptide 26 pg/ml (0-100) Total Protein 7.0 g/dl (6.3-8.2) Albumin 3.9 g/dl (3.5-5.0) Lipase 111 U/L (23-300) Blood Gas Patient Temperature 97.7 DEGREES Venous Blood pH 7.33 (7.31-7.41) Venous Blood Partial Pressure CO2 52 mmHg Venous Blood Partial Pressure O2 36 mmHg Venous Blood HCO3 28 mmol/L Venous Blood Oxygen Saturation 66 % Venous Blood Base Excess 2 mmol/L Oxygen Liters/Minute 6l Coagulation Test 09/10/18 10:48 Prothrombin Time 12.1 seconds Prothromb Time International Ratio 0.90 Activated Partial Thromboplast Time 27 seconds EKG/Imaging Imaging PATIENT NAME: Anali Magaña : 1940 MR: [id number] V: [id number] EXAM DATE: ORDERING PHYSICIAN: JASON HOLBROOK TECHNOLOGIST: [place] [facility] [place] : 1940 Visit/Account:[id number] Date of Sevice: 09/10/2018 Study: Frontal and lateral views of the chest Indication: Cough Comparison study: August 15, 2018 Findings: PA and lateral views of the chest demonstrate no evidence of acute infiltrate. There is no evidence of pleural effusion. There is no evidence of pneumothorax. The mediastinal, cardiac, and diaphragmatic contours are unremarkable. The visualized bony structures are unremarkable. IMPRESSION: Unremarkable chest. ED Course/Re-evaluation ED Course Patient is a 78-year-old female here with complaints of suspected COPD exacerbation, shortness breath, wheezing in spite of using her DuoNeb at home. Patient does complain of wheezing, cough. Patient is currently being treated with 4.5 L nasal cannula baseline. Patient was given Solu-Medrol IV, Levaquin, IV fluid bolus, DuoNeb, magnesium 2 g. Patient was given scripts for prednisone 5 day course burst therapy, Levaquin 5 day course. Recommend close PCP follow- up. Chest x-ray showed no acute consolidations. Patient will be trialed on o utpatient therapy. Return precautions provided. Decision to Disposition Date: Sep 10, 2018 Decision to Disposition Time: 12:57 Depart Departure Latest Vital Signs Vital Signs Date Time Temp Pulse Resp B/P (MAP) Pulse Ox O2 Delivery O2 Flow Rate FiO2 09/10/18 10:28 103 21 09/10/18 10:23 6.0 09/10/18 10:19 91 Oxy Mask 09/10/18 10:15 97.7 131/6 Impression: Primary Impression: Acute exacerbation of chronic obstructive pulmonary disease (COPD) Condition: Improved Disposition: HOME OR SELF-CARE Referrals: AJAY OLIVAREZ MD (PCP) New Scripts Levofloxacin 750 Mg Tab (LEVAQUIN 750 MG TAB) 750 Mg Tablet 750 MG PO QDAY for 5 Days, #5 TAB Prov: JASON HOLBROOK DO 09/10/18 Prednisone (PREDNISONE) 50 Mg Tablet 50 MG PO QDAY for 5 Days, #5 TAB Prov: JASON HOLBROOK DO 09/10/18 Patient Instructions: COPD (Chronic Obstructive Pulmonary Disease) (DC) Additional Instructions: Please take prednisone 1 tablet daily for 5 days. Please take Levaquin 750 mg daily for the next 5 days for treatment of COPD exacerbation. You may continue to take your DuoNeb nebulizers every 4-6 hours as needed for wheezing and shortness breath. Please follow-up with your family doctor in the next 24-48 hours for repeat evaluation. He may consider following up with pulmonology if your primary care provider deems this necessary. Please return promptly if you develop worsening shortness breath, chest pains, fevers, chills, cough or cold symptoms. JASON HOLBROOK DO Sep 10, 2018 10:25
[2018-09-10] MEDS ORDERED: NS(*) 0.9% 1000 ML BAG 1,000 ML IV ONE (10:38)
[2018-09-10] MEDS ORDERED: ALBUTEROL 2.5 MG/3 ML NEB NEB SCH (10:40)
[2018-09-10] MEDS ORDERED: methylPREDNIS SUCC 125 MG/2ML IVP ONE (10:40)
[2018-09-10] MEDS ORDERED: MAGNESIUM SUL* 2 GM/50 ML IVPB 50 ML IVPB ONE (10:40)
[2018-09-10 11:15] LABS: PLATELET COUNT, AUTOMATED 150 K/uL (150-450)
[2018-09-10 11:19] LABS: INR 0.9
--- NOTE | 2018-09-10 12:24 | RADIOLOGY IMAGING REPORT ---
FACILITY: [facility] PATIENT NAME: Anali Magaña : 1940 MR: [id number] V: [id number] EXAM DATE: ORDERING PHYSICIAN: JASON HOLBROOK TECHNOLOGIST: Location: [facility] [place] Patient: Anali Magaña : 1940 Visit/Account:[id number] Date of Sevice: 09/10/2018 Study: Frontal and lateral views of the chest Indication: Cough Comparison study: August 15, 2018 Findings: PA and lateral views of the chest demonstrate no evidence of acute infiltrate. There is no evidence of pleural effusion. There is no evidence of pneumothorax. The mediastinal, cardiac, and diaphragmatic contours are unremarkable. The visualized bony structures are unremarkable. IMPRESSION: Unremarkable chest. Report Dictated By: Enio Hammer at 09/10/2018 12:17 PM Report E-Signed By: Enio Hammer at 09/10/2018 12:19 PM WSN:[email or web address]
[2018-09-10 13:00] VITALS: BP 126/62
[2018-09-10] MEDS ORDERED: LEVO750T44 PO (13:00)
[2018-09-10] MEDS ORDERED: PRED50TA22 PO (13:00)
[2018-09-10] MEDS ORDERED: LEVOFLOXACIN 750 MG TAB PO ONE (13:05)
== END 2018-09-10 13:14 | disposition home or self-care (01) ==
LOC: ER 11:02
DX: J44.1 Chronic obstructive pulmonary disease with (acute) exacerbation (principal)
CPT/HCPCS: 36415; 71046; 82803; 83690; 83880; 85025; 85610; 85730; 94640; 96365; 96366; 96375; 99284; A9270; J2930; J3475; J7030; J7620; 82040; 82247; 82310; 82374; 82435; 82565; 82947; 84075; 84132; 84155; 84295; 84450; 84460; 84520

== ENCOUNTER 2018-09-13 10:20 | Inpatient (IN) | payer MEDICARE ==
[2018-08-16 08:56] VITALS: Wt 61.7 kg
[~2018-09-13 10:20] MED LIST changes: +PRED50TA22 PO
--- NOTE | 2018-09-13 10:22 | ER Report ---
History and Physical Time Seen By MD: 10:20 HPI/ROS CHIEF COMPLAINT: Shortness breath HISTORY OF PRESENT ILLNESS: Patient is a 78-year-old female with history of COPD on 4.5 l of oxygen. Patient was seen here on September 10 for COPD exacerbation and was sent home on prednisone and Levaquin. In the interim, the patient has progressively declined per patient and family. She was found be 82% on her baseline 4.5 l nasal cannula. Patient had audible wheezing in all lung garcia. Patient was immediately placed on BiPAP and given in-line nebulizer treatments. Patient reports fevers and chills, failure to thrive. REVIEW OF SYSTEMS: Constitutional: + fever, + chills. Eyes: No discharge. ENT: No sore throat. Cardiovascular: No chest pain, no palpitations. Respiratory: + cough, + wheezing and shortness of breath. Gastrointestinal: No abdominal pain, no vomiting. Genitourinary: No hematuria. Musculoskeletal: No back pain. Skin: No rashes. Neurological: No headache. Allergies: Coded Allergies: No Known Drug Allergies (Unverified , 09/13/18) Home Meds Active Scripts Levofloxacin 750 Mg Tab (LEVAQUIN 750 MG TAB) 750 Mg Tablet, 750 MG PO QDAY for 5 Days, #5 TAB Prov:JASON HOLBROOK DO 09/10/18 Prednisone (PREDNISONE) 50 Mg Tablet, 50 MG PO QDAY for 5 Days, #5 TAB Prov:JASON HOLBROOK S DO 09/10/18 Albuterol Sulfate 0.083% (ALBUTEROL SULFATE 0.083%) 2.5 Mg/3 Ml Vial.neb, 2.5 MG INH Q4-6H PRN for SHORTNESS OF BREATH, #60 VIAL 1 Refill Prov:AJAY OLIVAREZ MD 09/09/18 Simvastatin (SIMVASTATIN) 10 Mg Tablet, 10 MG PO HS, #90 TAB 3 Refills Prov:AJAY OLIVAREZ MD 09/02/18 Umeclidinium Brm/Vilanterol Tr (Anoro Ellipta 62.5-25 Mcg INH) 1 Each Disk.w.dev, 1 PUFF INH QDAY, #1 DISK 5 Refills Prov:AJAY OLIVAREZ MD 08/29/18 Prednisone 10 Mg Tab (PREDNISONE 10 MG TAB) 10 Mg Tablet, 10 MG PO DIRECTED, #30 TAB Take 4 tab daily x 3 days, then 3 tab daily x 3 days, then 2 tab daily x 3 days, then 1 tab daily x 3 days. Prov:ABI KELLER 08/19/18 Montelukast Sodium (SINGULAIR) 10 Mg Tablet, 10 MG PO QDAY, #30 TAB Prov:ABI KELLER 08/19/18 Cetirizine Hcl (ALL DAY ALLERGY) 10 Mg Tablet, 10 MG PO QDAY, #30 TAB Prov:ABI KELLER 08/19/18 Albuterol Sulfate (VENTOLIN HFA) 18 Gm Inh, 2 PUFF INH Q4-6H PRN for SHORTNESS OF BREATH, #1 INH 3 Refills Prov:AJAY OLIVAREZ MD 08/06/18 Oxygen (OXYGEN) Inha, 3-4 L INH DIRECTED, #0 L Prov:AJAY OLIVAREZ MD 09/30/15 Reported Medications Acetaminophen (TYLENOL) 325 Mg Tablet, 325 MG PO PRN PRN for PAIN, TAB 08/15/18 Cholecalciferol (Vitamin D3) (VITAMIN D3) 5,000 Unit Tablet, 5000 UNIT PO DAILY 08/15/18 Calcium Carbonate (CALCIUM) 500 Mg Tablet, 500 MG PO DAILY 08/15/18 Turmeric Root Extract (Turmeric) 538 Mg Capsule 05/21/18 Multivitamin (DAILY VITAMIN) 1 Each Tablet, 1 EACH PO 09/05/12 Discontinued Reported Medications Dextromethorphn/Acetaminoph/Cp (VICKS NYQUIL COLD & FLU LIQUID) 354 Ml Liquid, 354 ML PO HS PRN for CONGESTION 08/15/18 Hx Smoking: Yes (1/2PPD) Smoking Status: Former Smoker Exposure to Second Hand Smoke?: No Hx Substance Use Disorder: No Hx Alcohol Use: No Constitutional Vital Sign - Last 24 Hours 09/13/18 09/13/18 10:23 10:30 Temp 96.6 Pulse 139 Resp 36 B/P (MAP) 144/81 Pulse Ox 92 O2 Delivery Non-Rebreather O2 Flow Rate 10.0 Physical Exam General Appearance: The patient is alert, has no immediate need for airway protection and no signs of toxicity. Moderate distress Eyes: Pupils equal and round no pallor or injection. ENT, Mouth: Mucous membranes are moist. Respiratory: Wheezing in all lung garcia, retractions, diminished breath sounds Cardiovascular: Regular rate and rhythm. Gastrointestinal: Abdomen is soft and non tender, no masses, bowel sounds normal. Neurological: No focal neurological deficits Skin: Warm and dry, no rashes. Musculoskeletal: Neck is supple non tender. Extremities are nontender, nonswollen and have full range of motion. DIFFERENTIAL DIAGNOSIS: After history and physical exam differential diagnosis was considered for shortness of breath including but not limited to pulmonary infectious process, COPD, asthma, pulmonary embolus and congestive heart failure. Medical Decision Making Data Points Result Diagram: 09/13/18 1023 09/13/18 1023 Laboratory Hematology Test 09/13/18 10:23 09/13/18 10:35 Red Blood Count 4.63 M/uL (4.17-5.56) Mean Corpuscular Volume 99.6 fL (80.0-96.0) Mean Corpuscular Hemoglobin 33.2 pg (26.0-33.0) Mean Corpuscular Hemoglobin Concent 33.4 g/dL (32.0-36.0) Red Cell Distribution Width 13.4 % (11.5-14.5) Mean Platelet Volume 7.3 fL (7.2-11.1) Neutrophils (%) (Auto) 49.2 % (39.4-72.5) Lymphocytes (%) (Auto) 42.4 % (17.6-49.6) Monocytes (%) (Auto) 6.9 % (4.1-12.4) Eosinophils (%) (Auto) 0.8 % (0.4-6.7) Basophils (%) (Auto) 0.7 % (0.3-1.4) Nucleated RBC Relative Count (auto) 0.1 /100WBC Neutrophils # (Auto) 5.4 K/uL (2.0-7.4) Lymphocytes # (Auto) 4.7 K/uL (1.3-3.6) Monocytes # (Auto) 0.8 K/uL (0.3-1.0) Eosinophils # (Auto) 0.1 K/uL (0.0-0.5) Basophils # (Auto) 0.1 K/uL (0.0-0.1) Nucleated RBC Absolute Count (auto) 0.01 K/uL Prothrombin Time 11.9 seconds (12.0-14.4) Prothromb Time International Ratio 0.88 Activated Partial Thromboplast Time 24 seconds (23-35) Sodium Level 145 mmol/L (137-145) Potassium Level 4.1 mmol/L (3.5-5.0) Chloride Level 106 mmol/L (98-107) Carbon Dioxide Level 31 mmol/L (22-31) Blood Urea Nitrogen 23 mg/dl (7-18) Creatinine 0.80 mg/dl (0.52-1.04) Glomerular Filtration Rate Calc > 60.0 Random Glucose 108 mg/dl (75-110) Lactate 1.6 mmol/L (0.7-2.1) Calcium Level 9.0 mg/dl (8.4-10.2) Total Bilirubin 0.6 mg/dl (0.2-1.3) Aspartate Amino Transf (AST/SGOT) 32 U/L (0-35) Alanine Aminotransferase (ALT/SGPT) 34 U/L (0-56) Alkaline Phosphatase 72 U/L (0-126) B-Type Natriuretic Peptide 209 pg/ml (0-100) Total Protein 7.3 g/dl (6.3-8.2) Albumin 4.2 g/dl (3.5-5.0) Blood Gas Patient Temperature 96.6 DEGREES Venous Blood pH 7.33 (7.31-7.41) Venous Blood Partial Pressure CO2 58 mmHg Venous Blood Partial Pressure O2 151 mmHg Venous Blood HCO3 30 mmol/L Venous Blood Oxygen Saturation 99 % Venous Blood Base Excess 4 mmol/L Oxygen Liters/Minute 15l Human Chorionic Gonadotropin, Qual Negative (NEGATIVE) Chemistry Test 09/13/18 10:23 09/13/18 10:35 White Blood Count 11.1 k/uL (4.5-11.0) Red Blood Count 4.63 M/uL (4.17-5.56) Hemoglobin 15.4 g/dL (12.0-16.0) Hematocrit 46.1 % (34.0-47.0) Mean Corpuscular Volume 99.6 fL (80.0-96.0) Mean Corpuscular Hemoglobin 33.2 pg (26.0-33.0) Mean Corpuscular Hemoglobin Concent 33.4 g/dL (32.0-36.0) Red Cell Distribution Width 13.4 % (11.5-14.5) Platelet Count 217 K/uL (150-450) Mean Platelet Volume 7.3 fL (7.2-11.1) Neutrophils (%) (Auto) 49.2 % (39.4-72.5) Lymphocytes (%) (Auto) 42.4 % (17.6-49.6) Monocytes (%) (Auto) 6.9 % (4.1-12.4) Eosinophils (%) (Auto) 0.8 % (0.4-6.7) Basophils (%) (Auto) 0.7 % (0.3-1.4) Nucleated RBC Relative Count (auto) 0.1 /100WBC Neutrophils # (Auto) 5.4 K/uL (2.0-7.4) Lymphocytes # (Auto) 4.7 K/uL (1.3-3.6) Monocytes # (Auto) 0.8 K/uL (0.3-1.0) Eosinophils # (Auto) 0.1 K/uL (0.0-0.5) Basophils # (Auto) 0.1 K/uL (0.0-0.1) Nucleated RBC Absolute Count (auto) 0.01 K/uL Prothrombin Time 11.9 seconds (12.0-14.4) Prothromb Time International Ratio 0.88 Activated Partial Thromboplast Time 24 seconds (23-35) Glomerular Filtration Rate Calc > 60.0 Lactate 1.6 mmol/L (0.7-2.1) Calcium Level 9.0 mg/dl (8.4-10.2) Total Bilirubin 0.6 mg/dl (0.2-1.3) Aspartate Amino Transf (AST/SGOT) 32 U/L (0-35) Alanine Aminotransferase (ALT/SGPT) 34 U/L (0-56) Alkaline Phosphatase 72 U/L (0-126) B-Type Natriuretic Peptide 209 pg/ml (0-100) Total Protein 7.3 g/dl (6.3-8.2) Albumin 4.2 g/dl (3.5-5.0) Blood Gas Patient Temperature 96.6 DEGREES Venous Blood pH 7.33 (7.31-7.41) Venous Blood Partial Pressure CO2 58 mmHg Venous Blood Partial Pressure O2 151 mmHg Venous Blood HCO3 30 mmol/L Venous Blood Oxygen Saturation 99 % Venous Blood Base Excess 4 mmol/L Oxygen Liters/Minute 15l Human Chorionic Gonadotropin, Qual Negative (NEGATIVE) Coagulation Test 09/13/18 10:23 Prothrombin Time 11.9 seconds Prothromb Time International Ratio 0.88 Activated Partial Thromboplast Time 24 seconds EKG/Imaging Imaging PATIENT NAME: Anali Magaña : 1940 MR: [id number] V: [id number] EXAM DATE: ORDERING PHYSICIAN: JASON HOLBROOK TECHNOLOGIST: Location: [facility] [place] Patient: Anali Magaña : 1940 Visit/Account:[id number] Date of Sevice: 09/13/2018 CHEST SINGLE AP HISTORY: Respiratory distress COMPARISON: 09/10/2018 FINDINGS: Cardiomediastinal contours: Normal Lungs and pleura: Lungs are hyperexpanded. New focal linear opacity within the left lung base. No pneumothorax or pleural effusion. Bones/soft tissues: Normal Other findings: None significant IMPRESSION: 1. Lungs are hyperexpanded with new focal linear opacity at the left lung base which may represent atelectasis. Developing infiltrate not excluded. ED Course/Re-evaluation ED Course Patient is a 78-year-old female here with COPD exacerbation failed on outpatient treatment with prednisone and Levaquin. Patient was placed on BiPAP given in- line nebulizer treatments with moderate relief of respiratory distress. Patient was given Solu-Medrol IV, fluids. I discussed the patient with Dr. Keller who accepted the patient to the hospitalist service. Patient was stable at time of admission. Decision to Disposition Date: Sep 13, 2018 Decision to Disposition Time: 12:08 Depart Departure Latest Vital Signs Vital Signs Date Time Temp Pulse Resp B/P (MAP) Pulse Ox O2 Delivery O2 Flow Rate FiO2 09/13/18 10:30 10.0 09/13/18 10:23 96.6 139 36 144/81 92 Non-Rebreather Impression: Primary Impression: Acute exacerbation of chronic obstructive pulmonary disease (COPD) Condition: Improved Disposition: Admitted from ER Referrals: AJAY OLIVAREZ MD (PCP) JASON HOLBROOK DO Sep 13, 2018 10:22
[2018-09-13] MEDS ORDERED: NS(*) 0.9% 1000 ML BAG 1,000 ML IV ONE ×2 (10:24→10:32)
[2018-09-13] MEDS ORDERED: MAGNESIUM SUL* 2 GM/50 ML IVPB 50 ML IVPB ONE ×2 (10:25→10:35)
[2018-09-13] MEDS: ALBUTEROL/IPRATROPIUM 3 ML NEB NEB SCH ×3 (10:25→11:05)
[2018-09-13] MEDS ORDERED: methylPREDNIS SUCC 125 MG/2ML IVP ONE ×2 (10:25→10:35)
[2018-09-13 10:40] LABS: PLATELET COUNT, AUTOMATED 217 K/uL (150-450)
[2018-09-13 10:50] LABS: INR 0.88
--- NOTE | 2018-09-13 11:48 | RADIOLOGY IMAGING REPORT ---
FACILITY: [facility] PATIENT NAME: Anali Magaña : 1940 MR: [id number] V: [id number] EXAM DATE: ORDERING PHYSICIAN: JASON HOLBROOK TECHNOLOGIST: Location: [facility] Patient: Anali Magaña : 1940 Visit/Account:[id number] Date of Sevice: 09/13/2018 CHEST SINGLE AP HISTORY: Respiratory distress COMPARISON: 09/10/2018 FINDINGS: Cardiomediastinal contours: Normal Lungs and pleura: Lungs are hyperexpanded. New focal linear opacity within the left lung base. No p neumothorax or pleural effusion. Bones/soft tissues: Normal Other findings: None significant IMPRESSION: 1. Lungs are hyperexpanded with new focal linear opacity at the left lung base which may represent a telectasis. Developing infiltrate not excluded. Report Dictated By: Norman King MD at 09/13/2018 11:42 AM Report E-Signed By: Norman King MD at 09/13/2018 11:43 AM WSN:[id number]
--- NOTE | 2018-09-13 11:56 | EKG ---
FACILITY: [facility] - [place] PATIENT NAME: ESTRADA CARMONA : [id number] MR: [id number] V: [id number] EXAM DATE: ORDERING PHYSICIAN: JASON HOLBROOK TECHNOLOGIST: SONI Test Reason : SOB Blood Pressure : / mmHG Vent. Rate : 095 BPM Atrial Rate : 095 BPM P-R Int : 160 ms QRS Dur : 084 ms QT Int : 368 ms P-R-T Axes : 083 063 069 degrees QTc Int : 462 ms Sinus rhythm with fusion complexes and premature atrial complexes Otherwise normal ECG When compared with ECG of 15-AUG-2018 10:13, fusion complexes are now present premature atrial complexes are now present Confirmed by ABI KELLER ([id number]) on 09/14/2018 6:26:22 AM Referred By: Confirmed By:ABI KELLER
[2018-09-13 12:30] VITALS: BP 116/77
[2018-09-13] MEDS ORDERED: ALBUTEROL 2.5 MG/3 ML NEB NEB PRN (13:20)
[2018-09-13] MEDS ORDERED: INFLUENZA VIRUS VAC 0.5ML SYR IM ONLY ONE (13:20)
--- NOTE | 2018-09-13 13:22 | History & Physical ---
History of Present Illness Chief Complaint Shortness of breath History of Present Illness This patient presented to the emergency room complaining of shortness of breath. She was seen several days ago for similar symptoms and was started on pred nisone and levofloxacin. She noted worsening over the last several days. History Problems: (1) COPD exacerbation Status: Acute Home Meds Active Scripts Levofloxacin 750 Mg Tab (LEVAQUIN 750 MG TAB) 750 Mg Tablet, 750 MG PO QDAY for 5 Days, #5 TAB Prov:JASON HOLBROOK S DO 09/10/18 Prednisone (PREDNISONE) 50 Mg Tablet, 50 MG PO QDAY for 5 Days, #5 TAB Prov:JASON HOLBROOK DO 09/10/18 Albuterol Sulfate 0.083% (ALBUTEROL SULFATE 0.083%) 2.5 Mg/3 Ml Vial.neb, 2.5 MG INH Q4-6H PRN for SHORTNESS OF BREATH, #60 VIAL 1 Refill Prov:AJAY OLIVAREZ MD 09/09/18 Simvastatin (SIMVASTATIN) 10 Mg Tablet, 10 MG PO HS, #90 TAB 3 Refills Prov:AJAY OLIVAREZ MD 09/02/18 Umeclidinium Brm/Vilanterol Tr (Anoro Ellipta 62.5-25 Mcg INH) 1 Each Disk.w.dev, 1 PUFF INH QDAY, #1 DISK 5 Refills Prov:AJAY OLIVAREZ MD 08/29/18 Prednisone 10 Mg Tab (PREDNISONE 10 MG TAB) 10 Mg Tablet, 10 MG PO DIRECTED, #30 TAB Take 4 tab daily x 3 days, then 3 tab daily x 3 days, then 2 tab daily x 3 days, then 1 tab daily x 3 days. Prov:ABI KELLER DO 08/19/18 Montelukast Sodium (SINGULAIR) 10 Mg Tablet, 10 MG PO QDAY, #30 TAB Prov:ABI KELLER DO 08/19/18 Cetirizine Hcl (ALL DAY ALLERGY) 10 Mg Tablet, 10 MG PO QDAY, #30 TAB Prov:ABI KELLER DO 08/19/18 Albuterol Sulfate (VENTOLIN HFA) 18 Gm Inh, 2 PUFF INH Q4-6H PRN for SHORTNESS OF BREATH, #1 INH 3 Refills Prov:AJAY OLIVAREZ MD 08/06/18 Oxygen (OXYGEN) Inha, 3-4 L INH DIRECTED, #0 L Prov:AJAY OLIVAREZ MD 09/30/15 Reported Medications Acetaminophen (TYLENOL) 325 Mg Tablet, 325 MG PO PRN PRN for PAIN, TAB 08/15/18 Cholecalciferol (Vitamin D3) (VITAMIN D3) 5,000 Unit Tablet, 5000 UNIT PO DAILY 08/15/18 Calcium Carbonate (CALCIUM) 500 Mg Tablet, 500 MG PO DAILY 08/15/18 Turmeric Root Extract (Turmeric) 538 Mg Capsule 05/21/18 Multivitamin (DAILY VITAMIN) 1 Each Tablet, 1 EACH PO 09/05/12 Discontinued Reported Medications Dextromethorphn/Acetaminoph/Cp (VICKS NYQUIL COLD & FLU LIQUID) 354 Ml Liquid, 354 ML PO HS PRN for CONGESTION 08/15/18 Allergies: Coded Allergies: No Known Drug Allergies (Unverified , 09/13/18) Patient History: FH: Alzheimers disease FATHER FH: COPD (chronic obstructive pulmonary disease) BROTHER OR SISTER FH: arthritis MOTHER FHx: colon cancer BROTHER OR SISTER, Onset:65 FHx: lung cancer BROTHER OR SISTER, Onset:65 Hx Smoking: Yes (1/2PPD) Smoking Status: Former Smoker Exposure to Second Hand Smoke?: No Caffeine Intake: Coffee Caffeine/Cups Per Day: 4-5 Hx Alcohol Use: No Hx Substance Use Disorder: No Social Drug Use: Never Review of Systems All Systems Reviewed/Normal: Yes, Except as Noted Respiratory: Shortness of Breath, Wheezing Exam Vital Signs Vital Signs Date Time Temp Pulse Resp B/P (MAP) Pulse Ox O2 Delivery O2 Flow Rate FiO2 09/13/18 12:55 97 Bi-PAP 90.0 09/13/18 12:30 98.0 112 24 116/77 (90) 09/13/18 10:30 10.0 Neuro: No Gross deficits Eyes: PERRLA Cardiovascular: Regular Rate and Rhythm Respiratory: Other (Bilateral wheezing) GI: Abd Soft and Non-Tender Extremities: No Edema Integumentary: No Cyanosis Medical Decision Making Data Points Result Diagram: 09/13/18 1023 09/13/18 1023 Assessment and Plan Problems: (1) Acute exacerbation of chronic obstructive pulmonary disease (COPD) Status: Acute Assessment & Plan: She has been started on treatment with nebulizers, IV ster oids, and doxycycline. She is also requiring BiPAP. Venous Thromboembolism Antithrombotics Is Pt On Any Antithrombotics?: No Exam Sepsis Risk: No Definite Risk ABI KELLER DO Sep 13, 2018 13:22
--- NOTE | 2018-09-13 15:17 | Medical Nutrition Therapy ---
Nutritional Education Nutrition Education Topic: Other Learning Readiness: Interested Teaching Methods: Discussion, Handout Response to Teaching: Verbalize understanding Teaching Recipient: Patient, Primary Caregiver Nutrition Counseling: RD provided nutrition education on COPD nutrition to pt and caregiver. Caregiver reported familiarity with the COPD diet. Topics included: eating smaller more frequent meals, eating breakfast, focusing on eating when hungry and feeling well, drinking lots of fluids, meeting protein needs, and focusing on eating calorically dense foods. RD provided handout on these topics and a 1 day menu sample. -TOM STANLEY Sep 13, 2018 15:17
[2018-09-13] MEDS: ALBUTEROL 2.5 MG/3 ML NEB NEB SCH (17:42)
[2018-09-13] MEDS: methylPREDNIS SUCC 125 MG/2ML IVP SCH (17:43)
[2018-09-13 18:57] VITALS: BP 122/72
[2018-09-13] MEDS: DOXYCYCLINE HYCL 100 MG TAB PO SCH (21:42)
[2018-09-13] MEDS: ACETAMINOPHEN 325 MG TAB PO PRN (21:42)
[2018-09-14] MEDS: ALBUTEROL 2.5 MG/3 ML NEB NEB SCH ×4 (00:25→17:10)
[2018-09-14] MEDS: methylPREDNIS SUCC 125 MG/2ML IVP SCH ×2 (00:32→06:12)
[2018-09-14 05:47] LABS: PLATELET COUNT, AUTOMATED 154 K/uL (150-450)
[2018-09-14 07:21] VITALS: BP 117/67
[2018-09-14] MEDS: CETIRIZINE HCL 10 MG TAB PO SCH (08:24)
[2018-09-14] MEDS: DOXYCYCLINE HYCL 100 MG TAB PO SCH ×2 (08:24→21:18)
[2018-09-14] MEDS: MONTELUKAST SODIUM 10 MG TAB PO SCH (08:24)
[2018-09-14] MEDS ORDERED: ALBUTEROL/IPRATROPIUM 3 ML NEB NEB PRN (08:50)
[2018-09-14] MEDS: predniSONE 20 MG TAB PO SCH (09:52)
[2018-09-14 11:08] VITALS: BP 119/67
--- NOTE | 2018-09-14 14:29 | Hospitalist Progress Note ---
Subjective Progress Notes Subjective SADE overnight, this am feeling a little better. Nearing her baseline O2 needs. Patient Complains of: Respiratory: Shortness of Breath, Wheezing Physical Exam Vital Signs Date Time Temp Pulse Resp B/P (MAP) Pulse Ox O2 Delivery O2 Flow Rate FiO2 09/14/18 11:30 94 24 09/14/18 11:24 94 High-Flow Nasal Cannula 4.5 09/14/18 11:08 98.7 119/67 (84) 09/14/18 05:21 50.0 Intake and Output 09/14/18 07:01 Intake Total 2130 ml Balance 2130 ml Intake Oral 1080 ml IV Total 1050 ml # Voids 2 General Appearance: Alert, Awake, No Acute Distress Neuro: No Gross deficits Cardiovascular: Normal Rhythm & Peripheral Pulses Respiratory: Other (diminished breathsounds and bilateral wheezing) GI: Soft and Non-Tender Extremities: Soft and Non Tender, Warm, Pulses, Perfused Result Diagram: 09/14/1851209/14/18512 Assessment and Plan Problems: (1) Acute exacerbation of chronic obstructive pulmonary disease (COPD) Status: Acute Assessment & Plan: She has been started on treatment with nebulizers, IV steroids, and doxycycline. She is also requiring BiPAP at night. Exam Sepsis Risk: No Definite Risk PHAM LAN LOPEZ DO Sep 14, 2018 14:29
[2018-09-14 15:27] VITALS: BP 122/66
[2018-09-14 18:49] VITALS: BP 114/63
[2018-09-14] MEDS: ACETAMINOPHEN 325 MG TAB PO PRN (21:18)
[2018-09-14 21:55] VITALS: BP 124/81
[2018-09-15] MEDS: ALBUTEROL 2.5 MG/3 ML NEB NEB SCH ×4 (00:02→17:41)
[2018-09-15 05:00] VITALS: BP 142/79
[2018-09-15 07:08] VITALS: BP 118/71
[2018-09-15] MEDS: DOXYCYCLINE HYCL 100 MG TAB PO SCH ×2 (08:56→21:27)
[2018-09-15] MEDS: CETIRIZINE HCL 10 MG TAB PO SCH (08:56)
[2018-09-15] MEDS: MONTELUKAST SODIUM 10 MG TAB PO SCH (08:57)
[2018-09-15] MEDS: predniSONE 20 MG TAB PO SCH (08:57)
[2018-09-15 12:05] VITALS: BP 120/66
[2018-09-15 15:24] VITALS: BP 132/71
--- NOTE | 2018-09-15 15:51 | Hospitalist Progress Note ---
Subjective Progress Notes Subjective Overall feeling better. Admits that at home she is not able to do much due to shortness of breath. Physical Exam Vital Signs Date Time Temp Pulse Resp B/P (MAP) Pulse Ox O2 Delivery O2 Flow Rate FiO2 09/15/18 15:24 99.1 72 20 132/71 (91) 93 Nasal Cannula 09/15/18 13:35 10.0 09/15/18 03:30 45.0 Intake and Output 09/15/18 07:01 Intake Total 200 ml Balance 200 ml Intake Oral 200 ml # Voids 3 General Appearance: Alert, Awake, Other (Some mild increased work of breathing. ) Neuro: No Gross deficits Cardiovascular: Regular Rate and Rhythm Respiratory: Other (Markedly decreased BS throughout with some end-expiratory wheezes.) GI: Soft and Non-Tender Extremities: Warm, Perfused Psych: Appropriate Mood & Affect Result Diagram: 09/14/1851209/14/18512 Assessment and Plan Problems: (1) Acute exacerbation of chronic obstructive pulmonary disease (COPD) Status: Acute Assessment & Plan: She has been started on treatment with nebulizers, IV steroids, and doxycycline. She is also requiring BiPAP at night and prn during the day to recover from any exertion. Will need a couple of days more treatment to see if she improves enough to be able to go home. She appears to have end- stage disease. She would benefit from BiPAP at home. Will talk with RT regarding how we can qualify her for coverage of BiPAP without having to have an OP sleep study. We did discuss end-of-life care as well. The patient would like to see if she can improve enough to go home with BiPAP. Time Spent on Plan of Care: < 30 min Exam Sepsis Risk: Sepsis Risk STEPHANIE RUSSO MD Sep 15, 2018 15:51
--- NOTE | 2018-09-15 16:12 | Antimicrobial Stewardship ---
Antimicrobial Stewardship Empiricly appropriate: Yes Comment Started on Levaquin po as outpatient and changed to Doxycycline po for COPD exacerbation. Approriate Cultures done: Yes (NGTD) Renal/Hepatic dosing: Yes Reviewed for Drug Interaction: Yes Monitored for Toxicities: Yes Clinically stable/improving: Yes Comment WBC have returned to normal. Determine standard duration: 5-10 days CLEM BLANTON Sep 15, 2018 16:12
[2018-09-15 20:15] VITALS: BP 125/69
[2018-09-15] MEDS: ACETAMINOPHEN 325 MG TAB PO PRN (21:27)
[2018-09-15 23:30] VITALS: BP_SYST 134; BP_DIAS 1; BP_DIAS 71
[2018-09-16] MEDS: ALBUTEROL 2.5 MG/3 ML NEB NEB SCH ×5 (00:16→22:14)
[2018-09-16 05:00] VITALS: BP 135/73
[2018-09-16 06:50] VITALS: BP 113/64
--- NOTE | 2018-09-16 08:47 | Hospitalist Progress Note ---
Subjective Progress Notes Subjective This patient was admitted for COPD. She had no acute events overnight. Patient Complains of: Cardiovascular: No: Chest Pain Respiratory: Shortness of Breath Physical Exam Vital Signs Date Time Temp Pulse Resp B/P (MAP) Pulse Ox O2 Delivery O2 Flow Rate FiO2 09/16/18 06:50 97.9 72 20 113/64 (80) 93 High-Flow Nasal Cannula 3.5 09/15/18 03:30 45.0 Intake and Output 09/16/18 07:01 Intake Total 2007 ml Balance 2007 ml Intake Oral 2008 ml # Voids 4 Cardiovascular: Regular Rate and Rhythm Respiratory: Other (Decreased bilateral.) Extremities: No Edema Integumentary: No Cyanosis Result Diagram: 09/14/18 0513 09/16/18 0531 Assessment and Plan Problems: (1) Acute exacerbation of chronic obstructive pulmonary disease (COPD) Status: Acute Assessment & Plan: She is on treatment with nebulizers, prednisone, and doxycycline. She is also requiring BiPAP at night and prn during the day to recover from any exertion. We are trying to get her qualified for home BiPAP. Exam Sepsis Risk: No Definite Risk ABI KELLER DO Sep 16, 2018 08:47
[2018-09-16] MEDS: ENOXAPARIN 40 MG/0.4ML SYR SC SCH (09:00)
--- NOTE | 2018-09-16 09:00 | NUR ---
Olivier Galvezant with Cardiopulmonary who is assisting with bipap Addendum: 09/16/18 at 1729 by JANETTE ASHRAF RN Amended: Links added.
[2018-09-16] MEDS: DOXYCYCLINE HYCL 100 MG TAB PO SCH ×2 (09:42→21:28)
[2018-09-16] MEDS: MONTELUKAST SODIUM 10 MG TAB PO SCH (09:42)
[2018-09-16] MEDS: predniSONE 20 MG TAB PO SCH (09:42)
[2018-09-16] MEDS: CETIRIZINE HCL 10 MG TAB PO SCH (09:42)
--- NOTE | 2018-09-16 11:07 | Miscellaneous Provider Note ---
Miscellaneous Provider Note Note This patient does have chronic respiratory failure secondary to COPD. She requires the use of a noninvasive ventilator due to the severity of her illness. She has been to the ER for acute exacerbations of COPD on 09/11/18, 02/21/19, 04/14/18, 05/21/18, 07/17/18, and 09/10/18. She is currently on a noninvasive ventilator with the settings: Inspiratory pressure 15cm H2O, expiratory pressure 6cm H2O, I-time 1 sec, rise of 3, and 4L of oxygen. She did go through the pulmonary rehab clinic in 2017. A/P Chronic respiratory failure secondary to COPD - Noninvasive ventilator required. ABI KELLER DO Sep 16, 2018 11:07
[2018-09-16 15:26] VITALS: BP 108/66
[2018-09-16 15:38] VITALS: BP 121/64
[2018-09-16 19:20] VITALS: BP 119/66
[2018-09-16] MEDS: ACETAMINOPHEN 325 MG TAB PO PRN (21:28)
[2018-09-17 02:40] VITALS: BP 122/76
[2018-09-17] MEDS: ALBUTEROL 2.5 MG/3 ML NEB NEB SCH ×2 (05:37→11:21)
[2018-09-17 06:49] VITALS: BP 120/62
[2018-09-17] MEDS: ENOXAPARIN 40 MG/0.4ML SYR SC SCH (09:00)
[2018-09-17] MEDS: CETIRIZINE HCL 10 MG TAB PO SCH (09:46)
[2018-09-17] MEDS: MONTELUKAST SODIUM 10 MG TAB PO SCH (09:46)
[2018-09-17] MEDS: predniSONE 20 MG TAB PO SCH (09:46)
[2018-09-17] MEDS: DOXYCYCLINE HYCL 100 MG TAB PO SCH (09:46)
[2018-09-17 10:24] VITALS: BP 133/76
[2018-09-17] MEDS ORDERED: DOXY-179 PO (10:49)
[2018-09-17] MEDS ORDERED: PRED-1 PO (11:07)
--- NOTE | 2018-09-17 11:07 | Hospitalist Depart ---
Discharge Summary Reason for Hosp/Final Diag: (1) Acute exacerbation of chronic obstructive pulmonary disease (COPD) Status: Acute Hospital Course & Plan: She presented after failure on outpatient prednisone and levofloxacin for COPD exacerbation. She has improved on treatment with nebulizers, prednisone, and doxycycline. She is down to her baseline O2 requirement at rest, but still requires O2 at 10 liters with any activity. She will go home on a prednisone taper over 16 days and doxycycline for 3 more days to make a 7 day course. She will continue her chronic Singulair, Anoro and prn albuterol. She was BiPAP at night and prn during the day to recover from any exertion. She has now reached her therapeutic threshold and now requires non-invasive home ventilator. She will need AVAPS AE mode. Departure Weight (Pounds): 136 Result Diagram: 09/14/1851209/16/18 0531 Item Value Date Time Venous Blood pH 7.33 09/13/18 1035 Venous Blood Partial Pressure CO2 58 mmHg 09/13/18 1035 Venous Blood Partial Pressure O2 151 mmHg 09/13/18 1035 Venous Blood HCO3 30 mmol/L 09/13/18 1035 Venous Blood Oxygen Saturation 99 % 09/13/18 1035 Venous Blood Base Excess 4 mmol/L 09/13/18 1035 White Blood Count 11.1 k/uL H 09/13/18 1023 White Blood Count 5.5 k/uL 09/14/18 0513 Hemoglobin 13.3 g/dL 09/14/18 0513 Hemoglobin 15.4 g/dL 09/13/18 1023 Platelet Count 217 K/uL 09/13/18 1023 Platelet Count 154 K/uL 09/14/18 0513 Neutrophils (%) (Auto) 79.9 % H 09/14/18 0513 Neutrophils (%) (Auto) 49.2 % 09/13/18 1023 Prothromb Time International Ratio 0.88 09/13/18 1023 Lactate 1.6 mmol/L 09/13/18 1023 Total Bilirubin 0.6 mg/dl 09/13/18 1023 Aspartate Amino Transf (AST/SGOT) 32 U/L 09/13/18 1023 Alanine Aminotransferase (ALT/SGPT) 34 U/L 09/13/18 1023 Alkaline Phosphatase 72 U/L 09/13/18 1023 Blood Urea Nitrogen 23 mg/dl H 09/13/18 1023 Creatinine 0.80 mg/dl 09/13/18 1023 Sodium Level 145 mmol/L 09/13/18 1023 Potassium Level 4.1 mmol/L 09/13/18 1023 Chloride Level 106 mmol/L 09/13/18 1023 Carbon Dioxide Level 31 mmol/L 09/13/18 1023 B-Type Natriuretic Peptide 209 pg/ml H 09/13/18 1023 Blood Urea Nitrogen 24 mg/dl H 09/14/18 0513 Blood Urea Nitrogen 20 mg/dl H 09/16/18 0531 Creatinine 0.70 mg/dl 09/14/18 0513 Creatinine 0.80 mg/dl 09/16/18 0531 Human Chorionic Gonadotropin, Qual Negative 09/13/18 1035 Blood cultures without growth to date from 09/13/18 Imaging 09/13/18 CXR - 1. Lungs are hyperexpanded with new focal linear opacity at the left lung base which may represent atelectasis. Developing infiltrate not excluded. EKG Vent. 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 Prov:SEAN MAI MD 09/17/18 Doxycycline Hyclate (DOXYCYCLINE HYCLATE) 100 Mg Tablet, 100 MG PO BID, #7 Prov:SEAN MAI MD 09/17/18 Albuterol Sulfate 0.083% (ALBUTEROL SULFATE 0.083%) 2.5 Mg/3 Ml Vial.neb, 2.5 MG INH Q4-6H PRN for SHORTNESS OF BREATH, #60 VIAL 1 Refill Prov:AJAY PABON MD 09/09/18 Simvastatin (SIMVASTATIN) 10 Mg Tablet, 10 MG PO HS, #90 TAB 3 Refills Prov:AJAY PABON MD 09/02/18 Umeclidinium Brm/Vilanterol Tr (Anoro Ellipta 62.5-25 Mcg INH) 1 Each Disk.w.dev, 1 PUFF INH QDAY, #1 DISK 5 Refills Prov:AJAY PABON MD 08/29/18 Montelukast Sodium (SINGULAIR) 10 Mg Tablet, 10 MG PO QDAY, #30 TAB Prov:ABI KELLER DO 08/19/18 Cetirizine Hcl (ALL DAY ALLERGY) 10 Mg Tablet, 10 MG PO QDAY, #30 TAB Prov:ABI KELLER DO 08/19/18 Albuterol Sulfate (VENTOLIN HFA) 18 Gm Inh, 2 PUFF INH Q4-6H PRN for SHORTNESS OF BREATH, #1 INH 3 Refills Prov:AJAY PABON MD 08/06/18 Oxygen (OXYGEN) Inha, 3-4 L INH DIRECTED, #0 L Prov:AJAY PABON MD 09/30/15 Reported Medications Acetaminophen (TYLENOL) 325 Mg Tablet, 650 MG PO Q6H PRN for PAIN, TAB 08/15/18 Discontinued Reported Medications Cholecalciferol (Vitamin D3) (VITAMIN D3) 5,000 Unit Tablet, 5000 UNIT PO DAILY 08/15/18 Calcium Carbonate (CALCIUM) 500 Mg Tablet, 500 MG PO DAILY 08/15/18 Turmeric Root Extract (Turmeric) 538 Mg Capsule 05/21/18 Multivitamin (DAILY VITAMIN) 1 Each Tablet, 1 EACH PO 09/05/12 Dextromethorphn/Acetaminoph/Cp (VICKS NYQUIL COLD & FLU LIQUID) 354 Ml Liquid, 354 ML PO HS PRN for CONGESTION 08/15/18 Discontinued Scripts Levofloxacin 750 Mg Tab (LEVAQUIN 750 MG TAB) 750 Mg Tablet, 750 MG PO QDAY for 5 Days, #5 TAB Prov:JASON HOLBROOK DO 09/10/18 Prednisone (PREDNISONE) 50 Mg Tablet, 50 MG PO QDAY for 5 Days, #5 TAB Prov:JASON HOLBROOK DO 09/10/18 Prednisone 10 Mg Tab (PREDNISONE 10 MG TAB) 10 Mg Tablet, 10 MG PO DIRECTED, #30 TAB Take 4 tab daily x 3 days, then 3 tab daily x 3 days, then 2 tab daily x 3 days, then 1 tab daily x 3 days. Prov:ABI KELLER DO 08/19/18 Diet: Regular Activity: As Tolerated Special Instructions: Follow up with PCP in 1-2 weeks Go to the ER for fevers, chills, worsening SOB. Copies to: AJAY PABON MD ; Venous Thromboembolism Antithrombotics Is Pt On Any Antithrombotics?: No [id number] Certification Face to Face Home Health Certification Patient's Primary Care Provider: Ajay Pabon MD Institutional Provider conducted the [id number] encounter. Electronic Undersigning Physician Certifies Home Health. I certify that the patient has been under my care and that I had a [id number] encounter that meets the physician mxob-er-[id number] encounter requirements with this patient. This patient is home-bound due to safety issues and continues to require assistance with ADL's. I certify that based on my findings, that Nursing, Aides and the following Home Health services are medically necessary: Medical Necessity: Nursing Date Face to Face Conducted: Sep 17, 2018 SEAN MAI MD Sep 17, 2018 11:07
== END 2018-09-17 16:30 | disposition home or self-care (01) | DRG 191 ==
LOC: ER 10:25 → MED 11:57 → OBSVTOIN 11:57 → INTOOBSV 11:57
PROVIDERS: ADMIT Family Medicine; ATTEND Family Medicine
PROC: 5A09357 Assistance with Respiratory Ventilation, Less than 24 Consecutive Hours, Continuous Positive Airway Pressure (ICD-10-PCS; principal; 2018-09-13)
DX: J44.1 Chronic obstructive pulmonary disease with (acute) exacerbation (principal); J96.10 Chronic respiratory failure, unspecified whether with hypoxia or hypercapnia; Z87.891 Personal history of nicotine dependence; Z99.81 Dependence on supplemental oxygen; Z90.11 Acquired absence of right breast and nipple
CPT/HCPCS: 36415; 71045; 82040; 82247; 82310; 82374; 82435; 82565; 82803; 82947; 83605; 83880; 84075; 84132; 84155; 84295; 84450; 84460; 84520; 84703; 85025; 85610; 85730; 87040; 93005; 94010; 94640; 94660; 96365; 96375; 99285; J2930; J3475; J7030; J7512; J7613

== ENCOUNTER 2018-10-28 16:32 | Inpatient (IN) | payer MEDICARE ==
[~2018-10-28] VITALS: Ht 160 cm; Wt 60.6 kg
[~2018-10-28 16:32] MED LIST changes: +DILT120C12 PO; +FLUT1BLS5 PO
[2018-10-28] MEDS ORDERED: NS(*) 0.9% 1000 ML BAG 1,000 ML IV ONE (16:38)
[2018-10-28] MEDS ORDERED: ALBUTEROL/IPRATROPIUM 3 ML NEB NEB ONE (16:40)
[2018-10-28] MEDS ORDERED: methylPREDNIS SUCC 125 MG/2ML IVP ONE (16:40)
[2018-10-28] MEDS ORDERED: DILTIAZEM 5 MG/ML 5ML IVPUSH IVP ONE (16:50)
--- NOTE | 2018-10-28 16:51 | EKG ---
FACILITY: [facility] PATIENT NAME: ESTRADA CARMONA : [id number] MR: [id number] V: [id number] EXAM DATE: ORDERING PHYSICIAN: MIRACLE MAHER TECHNOLOGIST: RUBIA Desir Reason : RESPIRATORY Blood Pressure : / mmHG Vent. Rate : 139 BPM Atrial Rate : 139 BPM P-R Int : 144 ms QRS Dur : 076 ms QT Int : 272 ms P-R-T Axes : 075 064 068 degrees QTc Int : 413 ms Sinus tachycardia Otherwise normal ECG When compared with ECG of 13-SEP-2018 10:54, premature atrial complexes are no longer present Confirmed by JASON BASHIR ([id number]) on 10/28/2018 6:18:04 PM Referred By: Confirmed By:JASON BASHIR
--- NOTE | 2018-10-28 17:14 | ER Report ---
History and Physical Time Seen By MD: 16:40 Hx. of Stated Complaint: PATIENT REPORTS SHORTNESS OF BREATH THAT HAS BEEN GOING ON FOR 1 WEEK. GOT SIGNIFIGANTLY WORSE OVER THE LAST HOUR HPI/ROS CHIEF COMPLAINT: Shortness of breath HISTORY OF PRESENT ILLNESS: 78-year-old female patient presents to emergency room with complaint shortness of breath. Patient states she's been having shortness of breath for the past week which is worsened today. Patient states she's having difficulty time getting around moving. Patient states that she is finished a course of steroids recently prescribed by her primary care provider. She denies any fevers, chills, nausea, vomiting or diarrhea. Patient states she is short with activity. She states she has had some hemoptysis. She denies any nausea, vomiting or diarrhea. REVIEW OF SYSTEMS: Respiratory: As noted above Cardiovascular: No chest pain, no palpitations. Gastrointestinal: No vomiting, no abdominal pain. Musculoskeletal: No back pain. Allergies: Coded Allergies: levofloxacin (Verified Adverse Reaction, Intermediate, NAUSEA/VOMITING, 09/17/18) Home Meds Active Scripts Diltiazem Hcl (DILTIAZEM 24HR CD) 120 Mg Cap.er.24h, 120 MG PO QDAY, #30 TAB 3 Refills Prov:AJAY OLIVAREZ MD 10/23/18 Fluticasone/Umeclidin/Vilanter (Trelegy Ellipta 100-62.5-25) 100-62.5 Blst.w.dev, 1 INH PO QDAY, #1 INHALER 9 Refills Prov:AJAY OLIVAREZ MD 10/02/18 Montelukast Sodium (SINGULAIR) 10 Mg Tablet, 10 MG PO QDAY, #90 TAB 3 Refills Prov:AJAY OLIVAREZ MD 10/02/18 Cetirizine Hcl (ALL DAY ALLERGY) 10 Mg Tablet, 10 MG PO QDAY, #90 TAB 3 Refills Prov:AJAY OLIVAREZ MD 10/02/18 Albuterol Sulfate 0.083% (ALBUTEROL SULFATE 0.083%) 2.5 Mg/3 Ml Vial.neb, 2.5 MG INH Q4-6H PRN for SHORTNESS OF BREATH, #60 VIAL 1 Refill Prov:AJAY OLIVAREZ MD 09/09/18 Simvastatin (SIMVASTATIN) 10 Mg Tablet, 10 MG PO HS, #90 TAB 3 Refills Prov:AJAY OLIVAREZ MD 09/02/18 Albuterol Sulfate (VENTOLIN HFA) 18 Gm Inh, 2 PUFF INH Q4-6H PRN for SHORTNESS OF BREATH, #1 INH 3 Refills Prov:AJAY OLIVAREZ MD 08/06/18 Oxygen (OXYGEN) Inha, 3-4 L INH DIRECTED, #0 L Prov:AJAY OLIVAREZ MD 09/30/15 Reported Medications Acetaminophen (TYLENOL) 325 Mg Tablet, 650 MG PO Q6H PRN for PAIN, TAB 08/15/18 Discontinued Scripts Prednisone 10 Mg Tab (PREDNISONE 10 MG TAB) 10 Mg Tablet, 5-40 MG PO DIRECTED, #45 TAB 40 mg x 4 days 30 mg x 4 days 20 mg x 4 days 10 mg x4 days 5 mg x 4 days45 Prov:AJAY OLIVAREZ MD 10/02/18 Umeclidinium Brm/Vilanterol Tr (Anoro Ellipta 62.5-25 Mcg INH) 1 Each Disk.w.dev, 1 PUFF INH QDAY, #1 DISK 5 Refills Prov:AJAY OLIVAREZ MD 08/29/18 Past Medical/Surgical History Patient has a past medical history of hyperlipidemia, COPD, arthritis, osteoporosis, tinnitus, breast cancer. Patient has surgical history of cataract surgery, mastectomy. Patient has a family medical history of cancer, diabetes. Reviewed Nurses Notes: Yes Hx Smoking: Yes (1/2PPD) Smoking Status: Former Smoker Exposure to Second Hand Smoke?: No Hx Substance Use Disorder: No Hx Alcohol Use: No Constitutional Vital Sign - Last 24 Hours 10/28/18 10/28/18 10/28/18 10/28/18 16:32 16:35 16:40 16:41 Temp 99.7 Pulse ??? 140 Resp 20 B/P (MAP) 142/73 127/79 (95) Pulse Ox 90 92 O2 Delivery Nasal Cannula O2 Flow Rate 4.0 10/28/18 10/28/18 10/28/18 10/28/18 17:02 17:20 17:32 17:37 Pulse 121 119 112 Resp 43 22 B/P (MAP) 132/70 (90) Pulse Ox 90 90 8/5/10/28/18 10/28/18 10/28/18 17:37 17:40 17:42 18:00 Pulse 107 123 Resp 20 B/P (MAP) 120/60 (80) Pulse Ox 91 84 O2 Delivery Nasal Cannula O2 Flow Rate 5.0 10/28/18 10/28/18 18:02 18:30 Pulse 116 111 Pulse Ox 92 92 Physical Exam General Appearance: The patient is alert, has no immediate need for airway protection and no current signs of toxicity. Respiratory: Chest is non tender, lungs are extremely diminished to auscultation. Cardiac: regular rhythm, patient is tachycardic Gastrointestinal: Abdomen is soft and non tender, no masses, bowel sounds normal. Musculoskeletal: Neck: Neck is supple and non tender. Extremities have full range of motion and are non tender. Skin: No rashes or lesions. DIFFERENTIAL DIAGNOSIS: After history and physical exam differential diagnosis was considered for shortness of breath including but not limited to pulmonary infectious process, COPD, asthma, pulmonary embolus and congestive heart failure. Medical Decision Making Data Points Result Diagram: 10/28/18 1712 10/28/18 1636 Laboratory Hematology Test 10/28/18 17:12 White Blood Count 9.3 k/uL (4.5-11.0) Red Blood Count 4.36 M/uL (4.17-5.56) Hemoglobin 14.7 g/dL (12.0-16.0) Hematocrit 43.3 % (34.0-47.0) Mean Corpuscular Volume 99.3 fL (80.0-96.0) H Mean Corpuscular Hemoglobin 33.8 pg (26.0-33.0) H Mean Corpuscular Hemoglobin Concent 34.0 g/dL (32.0-36.0) Red Cell Distribution Width 13.8 % (11.5-14.5) Platelet Count 170 K/uL (150-450) Mean Platelet Volume 7.5 fL (7.2-11.1) Neutrophils (%) (Auto) 75.4 % (39.4-72.5) H Lymphocytes (%) (Auto) 15.4 % (17.6-49.6) L Monocytes (%) (Auto) 6.9 % (4.1-12.4) Eosinophils (%) (Auto) 1.4 % (0.4-6.7) Basophils (%) (Auto) 0.9 % (0.3-1.4) Nucleated RBC Relative Count (auto) 0.0 /100WBC Neutrophils # (Auto) 7.0 K/uL (2.0-7.4) Lymphocytes # (Auto) 1.4 K/uL (1.3-3.6) Monocytes # (Auto) 0.6 K/uL (0.3-1.0) Eosinophils # (Auto) 0.1 K/uL (0.0-0.5) Basophils # (Auto) 0.1 K/uL (0.0-0.1) Nucleated RBC Absolute Count (auto) 0.00 K/uL Chemistry Test 10/28/18 16:36 10/28/18 17:12 Sodium Level 140 mmol/L (137-145) Potassium Level 3.9 mmol/L (3.5-5.0) Chloride Level 104 mmol/L (98-107) Carbon Dioxide Level 28 mmol/L (22-31) Blood Urea Nitrogen 12 mg/dl (7-18) Creatinine 0.80 mg/dl (0.52-1.04) Glomerular Filtration Rate Calc > 60.0 Random Glucose 107 mg/dl (75-110) Calcium Level 9.8 mg/dl (8.4-10.2) Total Bilirubin 0.8 mg/dl (0.2-1.3) Aspartate Amino Transf (AST/SGOT) 28 U/L (0-35) Alanine Aminotransferase (ALT/SGPT) 28 U/L (0-56) Alkaline Phosphatase 78 U/L (0-126) Troponin I < 0.012 ng/ml Total Protein 7.1 g/dl (6.3-8.2) Albumin 4.2 g/dl (3.5-5.0) B-Type Natriuretic Peptide 52 pg/ml (0-100) EKG/Imaging Imaging Study: Frontal and lateral views of the chest Indication: Shortness of breath Comparison study: September 13, 2018 Findings: PA and lateral views of the chest demonstrate no evidence of acute infiltrate. There is density at the left base. This is not significantly changed from the previous study. There is no evidence of pleural effusion. There is no evidence of pneumothorax. The mediastinal, cardiac, and diaphragmatic contours are unremarkable. The visualized bony structures are unremarkable. IMPRESSION: No acute cardiopulmonary abnormality identified. Report Dictated By: Enio Hammer at 10/28/2018 5:38 PM Report E-Signed By: Enio Hammer at 10/28/2018 5:39 PM ED Course/Re-evaluation ED Course Patient was admitted and examined, history of physical were obtained. Different ial diagnoses were considered. On examination lungs are very diminished, heart is regular, abdomen is soft and nontender. An IV was started, a CBC, CMP, CMP, troponin, EKG, chest x-ray were done. Patient was tachycardic with ventricular rate of 140 bpm. Patient was given 20 mg of diltiazem. I did slow her down to 109 bpm. Patient was on 5 L oxygen was satting in the low 90s, 90-92%. She was having difficult time speaking, having stopped during sentences to catch her breath. Chest x-ray showed no acute troponin processes. Lab results were unremarkable, negative troponin, normal white count. I discussed the case with Dr. White, hospitalist, who felt the patient could go home if the patient felt that she was able to. Patient had gone to the bathroom all I was speaking with Dr. White. On returning to the room she ambulate back to bed. At that time she was 80% on 5 L. Patient took several minutes to get her oxygen saturations back up to 90%, and at that time she is on 6 L. Patient received an additional nebulizer with Xopenex. I discussed going home with patient. She states that this time she preferred to be admitted. I spoke with Dr. White who agreed to accept the patient for admission with diagnosis of COPD exacerbation. Decision to Disposition Date: Oct 28, 2018 Decision to Disposition Time: 18:06 Depart Departure Latest Vital Signs Vital Signs Date Time Temp Pulse Resp B/P (MAP) Pulse Ox O2 Delivery O2 Flow Rate FiO2 10/28/18 18:30 111 92 10/28/18 17:42 20 10/28/18 17:40 120/60 (80) 10/28/18 17:37 Nasal Cannula 5.0 10/28/18 16:35 99.7 Impression: Primary Impression: Acute exacerbation of chronic obstructive pulmonary disease (COPD) Condition: Condition Unchanged Disposition: Admitted from ER Referrals: AJAY OLIVAREZ MD (PCP) MIRACLE MAHER Oct 28, 2018 17:14
[2018-10-28 17:40] LABS: PLATELET COUNT, AUTOMATED 170 K/uL (150-450)
--- NOTE | 2018-10-28 17:46 | RADIOLOGY IMAGING REPORT ---
FACILITY: PATIENT NAME: Anali Magaña : 1940 MR: [id number] V: [id number] EXAM DATE: ORDERING PHYSICIAN: MIRACLE MAHER TECHNOLOGIST: Location: [facility] - [place] Patient: Anali Magaña : 1940 Visit/Account:[id number] Date of Sevice: 10/28/2018 Study: Frontal and lateral views of the chest Indication: Shortness of breath Comparison study: September 13, 2018 Findings: PA and lateral views of the chest demonstrate no evidence of acute infiltrate. There is d ensity at the left base. This is not significantly changed from the previous study. There is no evidence of pleural effusion. There is no evidence of pneumothorax. The mediastinal, cardiac, and diaphragmatic contours are unremarkable. The visualized bony structures are unremarkable. IMPRESSION: No acute cardiopulmonary abnormality identified. Report Dictated By: Enio Hammer at 10/28/2018 5:38 PM Report E-Signed By: Enio Hammer at 10/28/2018 5:39 PM WSN:[id number]
[2018-10-28] MEDS ORDERED: LEVALBUTEROL 1.25 MG/3 ML NEB NEB ONE (18:20)
[2018-10-28] MEDS ORDERED: INFLUENZA VIRUS VAC 0.5ML SYR IM ONLY ONE (18:25)
[2018-10-28] MEDS ORDERED: LEVALBUTEROL 1.25 MG/3 ML NEB NEB PRN (18:25)
--- NOTE | 2018-10-28 18:29 | History & Physical ---
History of Present Illness Chief Complaint Shortness of breath History of Present Illness This patient presented to the emergency room complaining of increased shortness of breath and wheezing. She was last admitted in August of this year. We did send her out on a prednisone taper, but she started to have symptoms after stopping the medicine. Her primary physician placed her on another taper, but she started to have symptoms again when the prednisone stopped 2 days ago. History Problems: (1) COPD (chronic obstructive pulmonary disease) Status: Chronic Home Meds Active Scripts Diltiazem Hcl (DILTIAZEM 24HR CD) 120 Mg Cap.er.24h, 120 MG PO QDAY, #30 TAB 3 Refills Prov:AJAY OLIVAREZ MD 10/23/18 Fluticasone/Umeclidin/Vilanter (Trelegy Ellipta 100-62.5-25) 100-62.5 Blst.w.dev, 1 INH PO QDAY, #1 INHALER 9 Refills Prov:AJAY OLIVAREZ MD 10/02/18 Montelukast Sodium (SINGULAIR) 10 Mg Tablet, 10 MG PO QDAY, #90 TAB 3 Refills Prov:AJAY OLIVAREZ MD 10/02/18 Cetirizine Hcl (ALL DAY ALLERGY) 10 Mg Tablet, 10 MG PO QDAY, #90 TAB 3 Refills Prov:AJAY OLIVAREZ MD 10/02/18 Albuterol Sulfate 0.083% (ALBUTEROL SULFATE 0.083%) 2.5 Mg/3 Ml Vial.neb, 2.5 MG INH Q4-6H PRN for SHORTNESS OF BREATH, #60 VIAL 1 Refill Prov:AJAY OLIVAREZ MD 09/09/18 Simvastatin (SIMVASTATIN) 10 Mg Tablet, 10 MG PO HS, #90 TAB 3 Refills Prov:AJAY OLIVAREZ MD 09/02/18 Albuterol Sulfate (VENTOLIN HFA) 18 Gm Inh, 2 PUFF INH Q4-6H PRN for SHORTNESS O F BREATH, #1 INH 3 Refills Prov:AJAY OLIVAREZ MD 08/06/18 Oxygen (OXYGEN) Inha, 3-4 L INH DIRECTED, #0 L Prov:AJAY OLIVAREZ MD 09/30/15 Reported Medications Acetaminophen (TYLENOL) 325 Mg Tablet, 650 MG PO Q6H PRN for PAIN, TAB 08/15/18 Discontinued Scripts Prednisone 10 Mg Tab (PREDNISONE 10 MG TAB) 10 Mg Tablet, 5-40 MG PO DIRECTED, #45 TAB 40 mg x 4 days 30 mg x 4 days 20 mg x 4 days 10 mg x4 days 5 mg x 4 days45 Prov:AJAY OLIVAREZ MD 10/02/18 Umeclidinium Brm/Vilanterol Tr (Anoro Ellipta 62.5-25 Mcg INH) 1 Each Disk.w.dev, 1 PUFF INH QDAY, #1 DISK 5 Refills Prov:AJAY OLIVAREZ MD 08/29/18 Allergies: Coded Allergies: levofloxacin (Verified Adverse Reaction, Intermediate, NAUSEA/VOMITING, 09/17/18) Patient History: FH: Alzheimers disease FATHER FH: COPD (chronic obstructive pulmonary disease) BROTHER OR SISTER FH: arthritis MOTHER FHx: colon cancer BROTHER OR SISTER, Onset:65 FHx: lung cancer BROTHER OR SISTER, Onset:65 Hx Smoking: Yes (1/2PPD) Smoking Status: Former Smoker Exposure to Second Hand Smoke?: No Caffeine Intake: Coffee Caffeine/Cups Per Day: 4-5 Hx Alcohol Use: No Hx Substance Use Disorder: No Social Drug Use: Never Review of Systems All Systems Reviewed/Normal: Yes, Except as Noted Respiratory: Shortness of Breath, Wheezing Exam Vital Signs Vital Signs Date Time Temp Pulse Resp B/P (MAP) Pulse Ox O2 Delivery O2 Flow Rate FiO2 10/28/18 17:42 107 20 10/28/18 17:37 91 Nasal Cannula 5.0 10/28/18 16:35 99.7 142/73 Neuro: No Gross deficits Cardiovascular: Regular Rate and Rhythm Respiratory: Other (Bilateral wheezing.) GI: Abd Soft and Non-Tender Extremities: No Edema Integumentary: No Cyanosis Medical Decision Making Data Points Result Diagram: 10/28/18 1712 10/28/18 1636 Assessment and Plan Problems: (1) Acute exacerbation of chronic obstructive pulmonary disease (COPD) Status: Acute Assessment & Plan: She did present with increased shortness of breath and whe ezing just 2 days after completing her last prescription for prednisone. She has been placed on Xopenex nebulizers and IV steroids. She may benefit from care home low dose prednisone treatment. (2) Sinus tachycardia Assessment & Plan: She has been getting tachycardia from the frequent albuterol treatments. We will try her on Xopenex to help reduce this. Copies to: AJAY OLIVAREZ MD ; Venous Thromboembolism Antithrombotics Is Pt On Any Antithrombotics?: No Exam Sepsis Risk: No Definite Risk ABI KELLER DO Oct 28, 2018 18:29
[2018-10-28 19:55] VITALS: BP 145/85
[2018-10-28] MEDS: DOXYCYCLINE HYCL 100 MG TAB PO SCH (20:52)
[2018-10-28] MEDS ORDERED: ACETAMINOPHEN 325 MG TAB PO PRN (21:40)
[2018-10-28 23:41] VITALS: BP 117/68
[2018-10-28] MEDS: methylPREDNIS SUCC 125 MG/2ML IVP SCH (23:41)
[2018-10-28] MEDS: LEVALBUTEROL 1.25 MG/3 ML NEB NEB SCH (23:44)
[2018-10-29 04:04] VITALS: BP 99/56
[2018-10-29 05:32] LABS: PLATELET COUNT, AUTOMATED 146 K/uL (150-450)
[2018-10-29] MEDS: LEVALBUTEROL 1.25 MG/3 ML NEB NEB SCH ×2 (05:57→11:02)
[2018-10-29] MEDS: methylPREDNIS SUCC 125 MG/2ML IVP SCH (06:01)
[2018-10-29 07:48] VITALS: BP 106/57
[2018-10-29] MEDS: DOXYCYCLINE HYCL 100 MG TAB PO SCH (08:22)
[2018-10-29] MEDS ORDERED: MONTELUKAST SODIUM 10 MG TAB PO SCH (09:00)
[2018-10-29] MEDS ORDERED: CETIRIZINE HCL 10 MG TAB PO SCH (09:00)
[2018-10-29] MEDS ORDERED: PRED-1 PO (12:21)
[2018-10-29] MEDS ORDERED: LEVA1.2513 NEB (12:21)
[2018-10-29] MEDS ORDERED: DOXY-179 PO (12:21)
--- NOTE | 2018-10-29 12:31 | Hospitalist Depart ---
Discharge Summary Reason for Hosp/Final Diag: (1) Acute exacerbation of chronic obstructive pulmonary disease (COPD) Status: Acute Hospital Course & Plan: She did present with increased shortness of breath and wheezing just 2 days after completing her last prescription for prednisone. CXR was clear. She was afebrile and had a normal WBC. She was placed on Doxycycline, Xopenex nebulizers and IV steroids. She feels back to baseline and wants to go home. She will go home on a slow prednisone taper down to 10mg a day (sent home with 24 days of prednisone). 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 (2) Sinus tachycardia Hospital Course & Plan: She was started on diltiazem as an outpatient. She noted stomach/flank pain while on it, so stopped it after 2 days. She has been getting tachycardia from the frequent albuterol treatments, so was switched to Xopenex with improvement in the tachycardia. She will be sent home with prn X openex and have her stop the albuterol. She is to follow up with her PCP regarding the tachycardia. Departure Weight (Pounds): 133 Weight (Ounces): 8.0 Result Diagram: 10/29/18 0505 10/29/18 0505 Item Value Date Time Hemoglobin 14.7 g/dL 10/28/18 1712 Hemoglobin 13.1 g/dL 10/29/18 0505 Neutrophils (%) (Auto) 75.4 % H 10/28/18 1712 Neutrophils (%) (Auto) 84.4 % H 10/29/18 0505 Platelet Count 146 K/uL L 10/29/18 0505 Red Cell Distribution Width 13.8 % 10/28/18 1712 Platelet Count 170 K/uL 10/28/18 1712 B-Type Natriuretic Peptide 52 pg/ml 10/28/18 1712 Total Bilirubin 0.8 mg/dl 10/28/18 1636 Aspartate Amino Transf (AST/SGOT) 28 U/L 10/28/18 1636 Alanine Aminotransferase (ALT/SGPT) 28 U/L 10/28/18 1636 Alkaline Phosphatase 78 U/L 10/28/18 1636 Troponin I < 0.012 ng/ml 10/28/18 1636 Sodium Level 140 mmol/L 10/28/18 1636 Potassium Level 3.9 mmol/L 10/28/18 1636 Chloride Level 104 mmol/L 10/28/18 1636 Carbon Dioxide Level 28 mmol/L 10/28/18 1636 Blood Urea Nitrogen 12 mg/dl 10/28/18 1636 Creatinine 0.80 mg/dl 10/28/18 1636 Imaging CXR - No acute cardiopulmonary abnormality identified. EKG Vent. Rate : 139 BPM Atrial Rate : 139 BPM P-R Int : 144 ms QRS Dur : 076 ms QT Int : 272 ms P-R-T Axes : 075 064 068 degrees QTc Int : 413 ms Sinus tachycardia Otherwise normal ECG When compared with ECG of 13-SEP-2018 10:54, premature atrial complexes are no longer present Confirmed by JASON BASHIR ([id number]) on 10/28/2018 6:18:04 PM Condition: Improved Discharge: Home Discharge Instructions Home Meds Active Scripts Prednisone 10 Mg Tab (PREDNISONE 10 MG TAB) 10 Mg Tablet, 10-20 MG PO DIRECTED, #40 TAB 2 pills bid for 4 days, then 1 pill bid for 4 days, then 1 pill daily Prov:SEAN MAI MD 10/29/18 Levalbuterol Hcl (LEVALBUTEROL HCL) 1.25 Mg/3 Ml Vial.neb, 1.25 MG NEB Q4HR PRN for SHORTNESS OF BREATH, #10 Prov:SEAN MAI MD 10/29/18 Doxycycline Hyclate (DOXYCYCLINE HYCLATE) 100 Mg Tablet, 100 MG PO BID, #14 Prov:SEAN MAI MD 10/29/18 Fluticasone/Umeclidin/Vilanter (Trelegy Ellipta 100-62.5-25) 100-62.5 Blst.w.dev, 1 INH PO QDAY, #1 INHALER 9 Refills Prov:AJAY OLIVAREZ MD 10/02/18 Montelukast Sodium (SINGULAIR) 10 Mg Tablet, 10 MG PO QDAY, #90 TAB 3 Refills Prov:AJAY OLIVAREZ MD 10/02/18 Cetirizine Hcl (ALL DAY ALLERGY) 10 Mg Tablet, 10 MG PO QDAY, #90 TAB 3 Refills Prov:AJAY OLIVAREZ MD 10/02/18 Simvastatin (SIMVASTATIN) 10 Mg Tablet, 10 MG PO HS, #90 TAB 3 Refills Prov:AJAY OLIVAREZ MD 09/02/18 Oxygen (OXYGEN) Inha, 3-4 L INH DIRECTED, #0 L Prov:AJAY OLIVAREZ MD 09/30/15 Reported Medications Acetaminophen (TYLENOL) 325 Mg Tablet, 650 MG PO Q6H PRN for PAIN, TAB 08/15/18 Discontinued Scripts Diltiazem Hcl (DILTIAZEM 24HR CD) 120 Mg Cap.er.24h, 120 MG PO QDAY, #30 TAB 3 Refills Prov:AJAY OLIVAREZ MD 10/23/18 Albuterol Sulfate 0.083% (ALBUTEROL SULFATE 0.083%) 2.5 Mg/3 Ml Vial.neb, 2.5 MG INH Q4-6H PRN for SHORTNESS OF BREATH, #60 VIAL 1 Refill Prov:AJAY OLIVAREZ MD 09/09/18 Albuterol Sulfate (VENTOLIN HFA) 18 Gm Inh, 2 PUFF INH Q4-6H PRN for SHORTNESS OF BREATH, #1 INH 3 Refills Prov:AJAY OLIVAREZ MD 08/06/18 Prednisone 10 Mg Tab (PREDNISONE 10 MG TAB) 10 Mg Tablet, 5-40 MG PO DIRECTED, #45 TAB 40 mg x 4 days 30 mg x 4 days 20 mg x 4 days 10 mg x4 days 5 mg x 4 days45 Prov:AJAY OLIVAREZ MD 10/02/18 Umeclidinium Brm/Vilanterol Tr (Anoro Ellipta 62.5-25 Mcg INH) 1 Each Disk.w.dev, 1 PUFF INH QDAY, #1 DISK 5 Refills Prov:AJAY OLIVAREZ MD 08/29/18 Diet: Regular Activity: As Tolerated Special Instructions: Follow up with your PCP in 1-2 weeks to reevaluate your symptoms and discuss being on alf prednisone. Go to the ER for fevers or worsening shortness of breath. Copies to: AJAY OLIVAREZ MD ; Venous Thromboembolism Antithrombotics Is Pt On Any Antithrombotics?: SEAN Araujo MD Oct 29, 2018 12:31
[2018-10-29 15:06] VITALS: Ht 160 cm; Wt 60.6 kg
== END 2018-10-29 13:35 | disposition home health service (06) | DRG 192 ==
LOC: ER 16:34 → MED 18:33
PROVIDERS: ADMIT Family Medicine; ATTEND Family Medicine
DX: J44.1 Chronic obstructive pulmonary disease with (acute) exacerbation (principal); T48.6X5A Adverse effect of antiasthmatics, initial encounter; M81.0 Age-related osteoporosis without current pathological fracture; R00.0 Tachycardia, unspecified; E78.5 Hyperlipidemia, unspecified; C50.919 Malignant neoplasm of unspecified site of unspecified female breast; Z88.8 Allergy status to other drugs, medicaments and biological substances; Z87.891 Personal history of nicotine dependence; Z90.11 Acquired absence of right breast and nipple
CPT/HCPCS: 36415; 71046; 82040; 82247; 82310; 82374; 82435; 82565; 82947; 83880; 84075; 84132; 84155; 84295; 84450; 84460; 84484; 84520; 85025; 93005; 94640; 96361; 96374; 96375; 99284; J2930; J3490; J7030